=== PATIENT | male | born 1945 | race Caucasian/White ===

== ENCOUNTER 2019-01-21 20:00 | Inpatient (IN) | payer MEDICARE ==
[~2019-01-21] VITALS: Ht 170.2 cm; Wt 76.8 kg
--- NOTE | 2019-01-21 20:39 | PHYS DOC ---
Past Medical History Past Medical History: A-Fib, High Cholesterol, Hypertension (pulmonary) Past Medical History limited due to patient's current condition, cardiopulmonary arrest Past Surgical History: Appendectomy, Coronary Bypass Surgery, Other (rotator cuff repair) Past Surgical History limited due to patient's current condition, cardiopulmonary arrest Smoking: Cigarettes, Greater than 1 pack/day, Quit Greater Than 1 Year (quit 2- 3 years ago) Alcohol Use: Occasionally (beer) Drug Use: None Social History limited due to patient's current condition, cardiopulmonary arrest Adult General Chief Complaint Chief Complaint: CPR/FULL ARREST HPI HPI 73-year-old male presents via EMS as postcardiac arrest with return of spontaneous rhythm. Patient had suddenly collapsed at home which was witnessed by his spouse. EMS was called and noted patient in Vtach. ACLS protocol utilized and patient defibrillated x 2 with 3 dose of epi prior to ROSC at 1940. ETT placed by EMS with 7.5 cuffed at 24cm at teeth. Patient with history of p acer. Post code rhythm per EMS was paced. EMS reports additional episode of pulseless Vtach which converted after additional defibrillation with ROSC at 1944. EMS transported to ED. Per family, patient had previously signed a "DNR form". Family reports that he "doesn't want to be in a vegetative state, however, he would want everything done initially". History of present illness limited due patient's current condition post cardiopulmonary arrest. Review of Systems Review of Systems Review of systems limited due to post cardiopulmonary arrest Family History Family History Mother - stroke, [place] Current Medications Current Medications Allergies Allergies Penicillin Amiodarone Physical Exam Physical Exam Constitutional: Nonresponsive elderly patient HENT: Normocephalic, atraumatic, oropharynx moist, ETT in place (per EMS) 7.5 cuffed tube 24 cm at teeth Eyes: 4mm pupils sluggish response, conjunctiva normal, no discharge Neck: Normal range of motion, supple Cardiovascular: Heart rate tachycardic, regular rhythm, radial pulse weak and thready Lungs & Thorax: Bilateral breath sounds coarse and artificial with bag valve mask, midline vertical chest wall healed incision site Abdomen: Soft, no tenderness Skin: Warm, dry, cyanotic to periphery Back: No tenderness, no CVA tenderness Extremities: No deformity, no edema Neurologic: GCS 3, unable to fully evaluate Current Patient Data Vital Signs Vital Signs Date Time Temp Pulse Resp B/P (MAP) Pulse Ox O2 Delivery O2 Flow Rate FiO2 01/21/19 20:55 93 91/51 (64) 93 Ventilator 01/21/19 20:35 97.6 97.6 01/21/19 20:00 16 15.0 Lab Values Laboratory Tests Test 01/21/19 20:24 01/21/19 20:40 01/21/19 20:42 01/21/19 20:47 Glucose (Fingerstick) 112 mg/dL (70-99) H O2 Saturation 90 % (92-99) L Arterial Blood pH 7.00 (7.35-7.45) *L Arterial Blood pCO2 at Patient Temp 52 mmHg (35-46) H Arterial Blood pO2 at Patient Temp 92 mmHg (65-108) Arterial Blood HCO3 13 mmol/L (21-28) L Arterial Blood Base Excess -19 mmol/L (-3-3) L Oxyhemoglobin 89.3 % Methemoglobin 0.6 % (0.0-1.9) Carbon Monoxide, Quantitative 0.3 % (0.0-1.9) FiO2 100 POC Troponin I 0.43 ng/ml (<0.08) POC Hemoglobin 13.3 g/dL (14-18) L POC Hematocrit 39 % (37-52) POC Sodium 122 mmol/L (135-145) L POC Potassium 4.0 mmol/L (3.5-5.0) POC Chloride 94 mmol/L (98-110) L POC Total CO2 17 mmol/L (23-32) L Anion Gap 16 mmol/L (6-14) H POC Blood Urea Nitrogen 9 mg/dL (8-26) POC Creatinine 1.2 mg/dL (0.5-1.4) Glucose Level 126 mg/dL (70-99) H POC Ionized Calcium (Amada) 0.93 mmol/L (1.13-1.32) L Laboratory Tests 01/21/19 20:47 EKG EKG @ 2001 Paced rhythm at 81bpm @2008 Paced rhythm at 103bpm Radiology/Procedures Radiology/Procedures PROCEDURE: CT HEAD WO CONTRAST CT head without contrast dated 01/21/2019. No comparison available. CLINICAL INDICATION: Post CODE BLUE. TECHNIQUE: Contiguous axial imaging the head was performed from skull base to vertex. No contrast administered. One or more of the following individualized dose reduction techniques were utilized for this examination: 1. Automated exposure control 2. Adjustment of the mA and/or kV according to patient size 3. Use of iterative reconstruction technique FINDINGS: Ventricles and sulci are mildly prominent for age. No midline shift or mass effect. Mild patchy low density in the deep/subcortical periventricular white matter. No hemorrhage or extra-axial collection. 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 Posterior fossa and brainstem otherwise unremarkable. Mild mucosal thickening of the bilateral ethmoid and maxillary sinuses. Visualized paranasal sinuses and mastoid air cells are otherwise clear. No apparent calvarial abnormality. IMPRESSION: 1. No evidence of acute intracranial hemorrhage or mass. 2. Mild chronic small vessel ischemic changes and atrophy. 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 3. Mild sinus disease. Electronically signed by: Agustin Wilkes MD (01/21/2019 11:27 PM) [facility] PROCEDURE: PORTABLE CHEST 1V Exam: Chest one view INDICATION: Endotracheal tube placement TECHNIQUE: Frontal view of the chest Comparisons: None FINDINGS: Endotracheal tube with tip approximately 5 cm above the dot. Enteric tube traverses below the diaphragm distal extent visualized within stomach. Pacer with leads terminating the right atrium and ventricle. Sternotomy wires and surgical clips overlying the left heart border again noted. Heart is enlarged. Pulmonary vessels are obscured. Patchy airspace disease in the lungs bilaterally. No pleural effusion. IMPRESSION: 1. Lines and tubes described above. 2. Patchy bilateral airspace disease and cardiomegaly. Findings could be related to pulmonary edema, multifocal infection, or ARDS Electronically signed by: Judah Kinney MD (01/21/2019 8:58 PM) [facility] 2nd CXR AP (preliminary interpretation by ED physician): RIJ in good position. Continued bilateral pulmonary patch airspace disease noted more likely pulmonary contusion due to CPR. Course & Med Decision Making Course & Med Decision Making Pertinent Labs and Imaging studies reviewed. (See chart for details) Patient presents as cardiopulmonary arrest with ROSC after defibrillation x 3 and epi x 3 by EMS. ETT placed by EMS. Patient with paced rhythm. Patient did lose pulse x 2 during ED stay which was successfully resuscitated per ACLS protocol. CXR confirmed good ETT placement. Significant patchy lung disease noted which is likely pulmonary contusion from mechanical compressions. P atient did have some bright red blood noted in ETT. Patient requiring pressure support with dopamine. Lab obtained and posted to chart. WBC elevation with bandemia noted. Lactic acid elevated. These findings more likely due to effects of resuscitative efforts. IVF hydration given. Troponin elevated. Central line placed to RIJ with good position on additional CXR. Discussed case with Dr. Stern (cardiology) who is in agreement with consultation and CODE ICE. 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 Patient requiring ICU admission for further evaluation and treatment. Discussed with Dr. Lee (hospitalist) who is in agreement with admission. Discussed findings and plan with family, who acknowledges understanding and agreement. Dragon Disclaimer Dragon Disclaimer This electronic medical record was generated, in whole or in part, using a voice recognition dictation system. Central Line Central Line : Central Line Lumen: triple Central Line Procedure: sterile drapes applied, sterile dressing applied Central Line Postion: internal jugular (R) Anesthesia: Lidocaine cc's of anesthesia: 3 Complications: none Central Line Post Position: sutured, good blood return, position confirmed w/ CXR Progress Written consent obtained. Time out performed. Hand hygiene utilized. Sterile attire donned. Wound cleaned with ChloraPrep. Sterile drapes applied. Anesthesia obtained via a 25-gauge hypodermic needle with (3) mL's of lidocaine. Bedside ultrasound utilized to view oval shaped compressible hypoechoic nonpulsatile vessel (right interval jugular). Needle introduced to RIJ under ultrasound guidance until good blood flow. Guidewire placed. Skin incised near wire and dilator use. Triple lumen cath placed over guidewire and guidewire removed (Seldinger technique). Cath secured with sutures in the normal fashion and sterile Op-site applied. Patient tolerated procedure well and without difficulty. Departure Departure Impression: Primary Impression: Cardiopulmonary arrest with successful resuscitation Disposition: ADMITTED INPATIENT Admitting Physician: LAW (Rosa) Condition: CRITICAL Referrals: AGUSTIN GOFF MD (PCP) Critical Care Time Critical care time was 60 minutes which includes time at bedside, spent in discussion of patient's care with specialists and/or family members, with interpretation of laboratory and/or radiological studies and is exclusive of procedures. AGUSTIN MONTANA DO Jan 21, 2019 20:39
[2019-01-21 20:50] LABS: BASE EXCESS COOX -19 mmol/L (-3-3); HCO3 COOX 13 mmol/L (21-28); METHEMOGLOBIN 0.6 % (0.0-1.9); OXYHEMOGLOBIN 89.3 %; PCO2 COOX 52 mmHg (35-46); PO2 COOX 92 mmHg (65-108); SAT O2 COOX 90 % (92-99)
[2019-01-21 20:52] LABS: CREATININE ISTAT 1.2 mg/dL (0.5-1.4); HEMOGLOBIN ISTAT 13.3 g/dL (14-18); ION CA ISTAT 0.93 mmol/L (1.13-1.32)
[2019-01-21] MEDS ORDERED: IV NORMAL SALINE 1000ML BAG 1,000 ML IV ONE (21:00)
[2019-01-21] MEDS ORDERED: fentaNYL PF VIAL 100 MCG/2 ML VIAL IV PRN ×2 (21:00)
[2019-01-21] MEDS ORDERED: ONDANSETRON PF 4 MG/2 ML VIAL. IV PRN ×2 (21:00→22:45)
--- NOTE | 2019-01-21 21:01 | RAD ---
Exam: Chest one view INDICATION: Endotracheal tube placement TECHNIQUE: Frontal view of the chest Comparisons: None FINDINGS: Endotracheal tube with tip approximately 5 cm above the dot. Enteric tube traverses below the diaphragm distal extent visualized within stomach. Pacer with leads terminating the right atrium and ventricle. Sternotomy wires and surgical clips overlying the left heart border again noted. Heart is enlarged. Pulmonary vessels are obscured. Patchy airspace disease in the lungs bilaterally. No pleural effusion. IMPRESSION: 1. Lines and tubes described above. 2. Patchy bilateral airspace disease and cardiomegaly. Findings could be related to pulmonary edema, multifocal infection, or ARDS Electronically signed by: Judah Kinney MD (01/21/2019 8:58 PM) [facility]
--- NOTE | 2019-01-21 21:11 | PDOC1 ---
History and Physical Date of Admission Date of Admission DATE: 01/21/19 TIME: 21:10 Identification/Chief Complaint Chief Complaint cardiac arrest in field, According to steph, pt had no complaints today, had been outside trimming roses in the warm weather, fell to floor IN HOME SUDDEN RESP ARREST , came to AID, CALLED 911, FOUND TO BE IN V--FIB BY MEDICS Pt is followed by Dr Jane [facility] Product Coordinator and PCP DR GOFF [facility], WAS hospitalized for fall in 09/2018 at [facility], Records requested stat from unit clerk on my visit, D/W DR MONTANA IN ER , Code ice protocol planned DR Stern aware of admit BLOOD CULTURED CT HEAD PENDING Past Medical History Past Medical History Past Medical History Past Medical History Past Medical History: A-Fib, High Cholesterol, Hypertension (pulmonary) Past Medical History limited due to patient's current condition, cardiopulmonary arrest Past Surgical History: Appendectomy, Coronary Bypass Surgery, Other (rotator cuff repair) Past Surgical History limited due to patient's current condition, cardiopulmonary arrest Smoking: Cigarettes, Greater than 1 pack/day, Quit Greater Than 1 Year (quit 2- 3 years ago) Alcohol Use: Occasionally (beer) Drug Use: None Social History limited due to patient's current condition, cardiopulmonary 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 beer Cardiovascular: HTN, Hyperlipidemia Pulmonary: COPD Psych: No pertinent hx Musculoskeletal: Osteoarthritis Infectious disease: No pertinent hx Endocrine: No pertinent hx Family History Family History Family History Family History Mother - stroke, [place] Family History: Heart Disease, Hypertension Social History Smoke: Quit ALCOHOL: heavy Drugs: None Current Medications Current Medications Current Medications Sodium Chloride 1,000 ml @ 1,000 mls/hr 1X ONCE IV ; Start 01/21/19 at 20:30; Stop 01/21/19 at 21:29; Status UNV Dopamine HCl/ Dextrose 250 ml @ 5.762 mls/ hr 1X ONCE IV ; Start 01/21/19 at 20:45; Stop 01/23/19 at 16:08; Status UNV Epinephrine HCl (EPINEPHrine SYRINGE) 1 mg 1X ONCE IV ; Start 01/21/19 at 21:15; Stop 01/21/19 at 21:16; Status UNV Epinephrine HCl (EPINEPHrine SYRINGE) 1 mg 1X ONCE IV ; Start 01/21/19 at 21:15; Stop 01/21/19 at 21:16; Status UNV Epinephrine HCl (EPINEPHrine SYRINGE) 1 mg 1X ONCE IV ; Start 01/21/19 at 21:15; Stop 01/21/19 at 21:16; Status UNV Ondansetron HCl (Zofran) 4 mg PRN Q8HRS PRN IV NAUSEA/VOMITING; Start 01/21/19 at 21:00; Stop 01/22/19 at 20:59; Status UNV Fentanyl Citrate (Fentanyl 2ml Vial) 25 mcg PRN Q1HR PRN IV SEE COMMENTS; Start 01/21/19 at 21:00; Status UNV Fentanyl Citrate (Fentanyl 2ml Vial) 50 mcg PRN Q1HR PRN IV SEE COMMENTS; Start 01/21/19 at 21:00; Status UNV Chlorhexidine Gluconate (Peridex) 15 ml BID MM ; Start 01/21/19 at 21:00; Status UNV Famotidine (Pepcid Vial) 20 mg BID IVP ; Start 01/21/19 at 21:00; Status UNV Allergies Allergies: Coded Allergies: Penicillins (Verified Allergy, Unknown, 01/21/19) amiodarone (Verified Allergy, Unknown, 01/21/19) ROS Review of System unable to obtain, intubated, faily reports he awake with no problems or complaints General: No: Chills, Night Sweats, Fatigue, Malaise, Appetite, Other Hematological and Lymphatic: No: Bleeding Problems, Blood Clots, Blood Transfusions, Brusing, Night Sweats, Pallor, Swollen Lymph Nodes, Other Cardiovascular: No Chest Pain, No Palpitations, No Orthopnea, No Paroxysmal Noc. Dyspnea, No Edema, No Lt Headedness, No Other Neurological: No Behavorial Changes, No Bowel/Bladder ControlChng, No Confusion, No Dizziness, No Gait Disturbance, No Headaches, No Impaired Coord/balance, No Memory Loss, No Numbness/Tingling, No Seizures, No Speech Problems, No Tremors, No Visual Changes, No Weakness, No Other Physical Exam Physical Exam INTUBATED ON VENT IN ER General: moderate distress HEENT: Atraumatic Lungs: Other (coarse breath sounds all lung camarena) Breasts: Normal Abdomen: Normal bowel sounds, Soft, No tenderness Rectal Exam: not examined PELVIC: Examination not indicated Extremities: No cyanosis Vitals Vitals Vital Signs Date Time Temp Pulse Resp B/P (MAP) Pulse Ox O2 Delivery O2 Flow Rate FiO2 01/21/19 19:58 95 Ventilator Labs Labs Laboratory Tests Test 01/21/19 20:24 01/21/19 20:40 01/21/19 20:42 01/21/19 20:47 Glucose (Fingerstick) 112 mg/dL (70-99) O2 Saturation 90 % (92-99) Arterial Blood pH 7.00 (7.35-7.45) Arterial Blood pCO2 at Patient Temp 52 mmHg (35-46) Arterial Blood pO2 at Patient Temp 92 mmHg (65-108) Arterial Blood HCO3 13 mmol/L (21-28) Arterial Blood Base Excess -19 mmol/L (-3-3) Oxyhemoglobin 89.3 % Methemoglobin 0.6 % (0.0-1.9) Carbon Monoxide, Quantitative 0.3 % (0.0-1.9) FiO2 100 Bedside Troponin I 0.43 ng/ml (<0.08) Bedside Hemoglobin 13.3 g/dL (14-18) Bedside Hematocrit 39 % (37-52) Bedside Sodium 122 mmol/L (135-145) Bedside Potassium 4.0 mmol/L (3.5-5.0) Bedside Chloride 94 mmol/L (98-110) Bedside Total CO2 17 mmol/L (23-32) Anion Gap 16 mmol/L (6-14) Bedside Blood Urea Nitrogen 9 mg/dL (8-26) Bedside Creatinine 1.2 mg/dL (0.5-1.4) Glucose Level 126 mg/dL (70-99) Bedside Ionized Calcium (Amada) 0.93 mmol/L (1.13-1.32) Laboratory Tests Test 01/21/19 20:24 01/21/19 20:40 01/21/19 20:42 01/21/19 20:47 Glucose (Fingerstick) 112 mg/dL (70-99) O2 Saturation 90 % (92-99) Arterial Blood pH 7.00 (7.35-7.45) Arterial Blood pCO2 at Patient Temp 52 mmHg (35-46) Arterial Blood pO2 at Patient Temp 92 mmHg (65-108) Arterial Blood HCO3 13 mmol/L (21-28) Arterial Blood Base Excess -19 mmol/L (-3-3) Oxyhemoglobin 89.3 % Methemoglobin 0.6 % (0.0-1.9) Carbon Monoxide, Quantitative 0.3 % (0.0-1.9) FiO2 100 Bedside Troponin I 0.43 ng/ml (<0.08) Bedside Hemoglobin 13.3 g/dL (14-18) Bedside Hematocrit 39 % (37-52) Bedside Sodium 122 mmol/L (135-145) Bedside Potassium 4.0 mmol/L (3.5-5.0) Bedside Chloride 94 mmol/L (98-110) Bedside Total CO2 17 mmol/L (23-32) Anion Gap 16 mmol/L (6-14) Bedside Blood Urea Nitrogen 9 mg/dL (8-26) Bedside Creatinine 1.2 mg/dL (0.5-1.4) Glucose Level 126 mg/dL (70-99) Bedside Ionized Calcium (Amada) 0.93 mmol/L (1.13-1.32) Images Images Exam: Chest one view INDICATION: Endotracheal tube placement TECHNIQUE: Frontal view of the chest Comparisons: None FINDINGS: Endotracheal tube with tip approximately 5 cm above the dot. Enteric tube traverses below the diaphragm distal extent visualized within stomach. Pacer with leads terminating the right atrium and ventricle. Sternotomy wires and surgical clips overlying the left heart border again noted. Heart is enlarged. Pulmonary vessels are obscured. Patchy airspace disease in the lungs bilaterally. No pleural effusion. IMPRESSION: 1. Lines and tubes described above. 2. Patchy bilateral airspace disease and cardiomegaly. Findings could be related to pulmonary edema, multifocal infection, or ARDS Electronically signed by: Judah Kinney MD (01/21/2019 8:58 PM) [facility] Exam: Chest one view INDICATION: Endotracheal tube placement TECHNIQUE: Frontal view of the chest Comparisons: None FINDINGS: Endotracheal tube with tip approximately 5 cm above the dot. Enteric tube traverses below the diaphragm distal extent visualized within stomach. Pacer with leads terminating the right atrium and ventricle. Sternotomy wires and surgical clips overlying the left heart border again noted. Heart is enlarged. Pulmonary vessels are obscured. Patchy airspace disease in the lungs bilaterally. No pleural effusion. IMPRESSION: 1. Lines and tubes described above. 2. Patchy bilateral airspace disease and cardiomegaly. Findings could be related to pulmonary edema, multifocal infection, or ARDS Electronically signed by: Judah Kinney MD (01/21/2019 8:58 PM) [facility] VTE Prophylaxis Ordered VTE Prophylaxis Devices: Yes VTE Pharmacological Prophylaxi: Yes Assessment/Plan Assessment/Plan IMPRESSION: 1. v-fib arrest in field. 2. Patchy bilateral airspace disease and cardiomegaly. Findings could be related to pulmonary edema, multifocal infection, or ARDS on pcxr 3. COPD 4. RESP ACIDOSIS/ metabolic acidosis 5, RESP FAILURE, POSSIBLE ASPIRATION// hypercapnic 6. Cardiogenic shock 7. elevated troponin i 8. severe sepsis 9. hyponatremia 10. heat exposure prior to CARDIAC arrest 11. moderate alcohol use 12. 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
[2019-01-21] MEDS ORDERED: EPINEPHrine SYRINGE 1 MG/10 ML SYRINGE IV ONE ×3 (21:15)
[2019-01-21] MEDS ORDERED: FAMOTIDINE 20 MG/2 ML VIAL IVP SCH (21:15)
[2019-01-21] MEDS ORDERED: SODIUM BICARB ADULT 8.4% 50 MEQ/50 ML DISP.SYRIN. IV ONE (21:15)
[2019-01-21] MEDS ORDERED: fentaNYL PF VIAL 100 MCG/2 ML VIAL ONE (21:29)
[2019-01-21] MEDS ORDERED: fentaNYL PF VIAL 100 MCG/2 ML VIAL IV ONE (21:30)
[2019-01-21] MEDS ORDERED: PROPOFOL 100 ML IV PRN (21:30)
[2019-01-21] MEDS ORDERED: MIDAZOLAM HCL/PF 5 MG/5 ML VIAL. IV ONE (21:30)
[2019-01-21 21:44] LABS: BASE EXCESS ABG -14 mmol/L (-3-3); HCO3 ABG 17 mmol/L (21-28); PCO2 ABG 56 mmHg (35-46); PO2 ABG 72 mmHg (65-108); SAT O2 ABG 85 % (92-99)
[2019-01-21] MEDS ORDERED: 0.9 % SODIUM CHLORIDE 10 ML DISP.SYRIN. IV PRN (22:45)
[2019-01-21] MEDS ORDERED: VANCOMYCIN PER PHARMACY MC PRN (22:45)
[2019-01-21] MEDS ORDERED: VANCOMYCIN 2 GM in IV NORMAL SALINE 500ML BAG 500 ML IV ONE (23:00)
[2019-01-21 23:15] VITALS: BP 80/61
--- NOTE | 2019-01-21 23:15 | NUR ---
pt admitted to room 106 from ED at this time. hypothermia started; cold blankets applied under and on top of patient, ice packs applied to bilateral groin and bilateral armpits, one liter of cold saline infused through peripheral IV in right AC, cold saline flushes utilized to both peripherals and right central IJ, karimi flushed with cold saline as well as cold water flushed through OG. rectal probe placed without difficulty. towel placed around head, socks applied and temperature in room lowered to lowest possible setting. bloody secretions noted from ET tube, pt bucking vent and constantly coughing. pt tolerated a dose of IV Fentanyl x1 so Fentanyl SHAPER SETTER initiated. unable to tolerate Propofol d/t hypotension and on Dopamine, so Versed was initiated instead with desirable results. and son at bedside, questions answered. Family was educated on plan of care, unit routines, meds, vent, labs and visiting hours; both voice understanding. will pass on in report, will continue to closely monitor.
--- NOTE | 2019-01-21 23:30 | RAD ---
CT head without contrast dated 01/21/2019. No comparison available. CLINICAL INDICATION: Post CODE BLUE. TECHNIQUE: Contiguous axial imaging the head was performed from skull base to vertex. No contrast administered. One or more of the following individualized dose reduction techniques were utilized for this examination: 1. Automated exposure control 2. Adjustment of the mA and/or kV according to patient size 3. Use of iterative reconstruction technique FINDINGS: Ventricles and sulci are mildly prominent for age. No midline shift or mass effect. Mild patchy low density in the deep/subcortical periventricular white matter. No hemorrhage or extra-axial collection. 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 Posterior fossa and brainstem otherwise unremarkable. Mild mucosal thickening of the bilateral ethmoid and maxillary sinuses. Visualized paranasal sinuses and mastoid air cells are otherwise clear. No apparent calvarial abnormality. IMPRESSION: 1. No evidence of acute intracranial hemorrhage or mass. 2. Mild chronic small vessel ischemic changes and atrophy. 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 3. Mild sinus disease. Electronically signed by: Agustin Wilkes MD (01/21/2019 11:27 PM) [facility]
[2019-01-21 23:33] LABS: BASO # 0.1 x10^3/uL (0.0-0.2); BASO % 0 % (0-3); EOS # 0.1 x10^3/uL (0.0-0.7); EOS % 0 % (0-3); HEMATOCRIT 36.4 % (39.0-53.0); HEMOGLOBIN 12.1 g/dL (13.0-17.5); LYMPH # 0.9 x10^3/uL (1.0-4.8); LYMPH % 4 % (24-48); MEAN CORPUSCULAR HEMOGLOBIN 30 pg (25-35); MEAN CORPUSCULAR HGB CONC 33 g/dL (31-37); MEAN CORPUSCULAR VOLUME 90 fL (79-100); MONO # 1.4 x10^3/uL (0.0-1.1); MONO % 7 % (0-9); NEUT # 18.5 x10^3/uL (1.8-7.7); NEUT % 88 % (31-73); PLATELET COUNT 157 x10^3/uL (140-400); RED BLOOD COUNT 4.06 x10^6/uL (4.30-5.70); RED CELL DISTRIBUTION WIDTH 17.5 % (11.5-14.5)
[2019-01-21 23:36] LABS: FIO2 ABG 100
[2019-01-21 23:42] LABS: PROTHROMBIN TIME PATIENT 35.8 SEC (11.7-14.0)
[2019-01-21] MEDS: CHLORHEXIDINE 0.12% 15 ML MOUTHWASH. MM SCH (23:45)
[2019-01-21 23:53] LABS: % BANDS 22 % (0-9); % LYMPHS 7 % (24-48); % METAS 2 % (0-0); % MONOS 4 % (0-10); % MYELOS 1 % (0-0); % PROS 1 % (0-0); % SEGS 63 % (35-66); ANISOCYTOSIS SLIGHT; PLT ESTIMATE ADEQUATE (ADEQUATE); TOXIC GRANULATION SLIGHT
[2019-01-21 23:54] LABS: CALCIUM 7.2 mg/dL (8.5-10.1); CREATININE 1.2 mg/dL (0.7-1.3); GFR 59.2; POTASSIUM 5.6 mmol/L (3.5-5.1)
[2019-01-22] VITALS (35 sets, daily range): BP systolic 68–194; BP diastolic 43–93
[2019-01-22 00:07] LABS: ALBUMIN 3.1 g/dL (3.4-5.0); MAGNESIUM 1.5 mg/dL (1.8-2.4); PHOSPHORUS 6.8 mg/dL (2.6-4.7); TOTAL BILIRUBIN 0.9 mg/dL (0.2-1.0); TOTAL PROTEIN 6.1 g/dL (6.4-8.2)
[2019-01-22] MEDS ORDERED: IV NORMAL SALINE 1000ML BAG 1,000 ML IV ONE ×2 (00:15)
[2019-01-22] MEDS ORDERED: VECURONIUM BOLUS 10 MG VIAL. IV PRN (00:30)
[2019-01-22] MEDS ORDERED: POLYVINYL ALCOHOL 1.4% OPHTH SOLUTION 15ML BOTTLE. OU PRN (00:30)
[2019-01-22] MEDS: MIDAZOLAM 100mg/100ml NS BAG 100 ML IV PRN ×2 (00:55→19:24)
[2019-01-22] MEDS: ACETAMINOPHEN 650 MG/20.3 ML SOLUTION. NG SCH ×6 (00:58→22:46)
[2019-01-22] MEDS ORDERED: MAGNESIUM SULFATE 1GM 100 ML IV ONE (01:00)
[2019-01-22] MEDS ORDERED: ASPIRIN RECTAL 300 MG SUPP. PR ONE (01:00)
[2019-01-22 01:10] LABS: BASE EXCESS COOX -12 mmol/L (-3-3); CORRECTED PCO2 COOX 33 mmHg; CORRECTED PH COOX 7.26; CORRECTED PO2 COOX 91 mmHg; HCO3 COOX 15 mmol/L (21-28); METHEMOGLOBIN 0.3 % (0.0-1.9); PCO2 COOX 37 mmHg (35-46); PO2 COOX 106 mmHg (65-108); SAT O2 COOX 96 % (92-99)
[2019-01-22] MEDS: busPIRone 10 MG TABLET. NG SCH ×3 (01:12→17:00)
--- NOTE | 2019-01-22 01:22 | NUR ---
Pharmacy Vancomycin Dosing Note S:Consulted to monitor and dose vancomycin started 01/22/19. O:DILLAN BANDA is a 73 year old M with Sepsis . Height: 6 feet, 0 inches Weight: 76.712342 kg [place] Body Weight: 77.60 Adjusted Body Weight: 77.28 Dosing Weight: Actual Other Antibiotics: CLINDAMYCIN 600MG IV Q8H (01/22) LEVOFLOXACIN 500MG IV X1 (01/22) LABS: Last BUN: 12 Last Creatinine: 1.2 Creatinine Clearance: 59 mL/min Last WBC: 21 Last Procalcitonin: Tmax (past 24 hours): Microbiology: I/O: Drug Levels: Last level: on at Last dose given at Vancomycin Dosing: Loading Dose: 2000 mg x1 01/22/19 0050 Dosing Weight: Actual Target Trough: 15-20 A: Based on: Actual Wt and CrCl P: 1. 01/22/19 1300 Vancomycin 1000 mg IV q12h 2. Follow up Trough level on 01/23/19 at 1230 3. Pharmacy will continue to monitor, follow and adjust therapy as needed. PROSPER ELIAS RPH, 01/22/19 0122 Signed: 01/22/19 at 0124 by PRSOPER ELIAS RPH PHA
[2019-01-22] MEDS ORDERED: MAGN400T22 PO (02:59)
[2019-01-22] MEDS ORDERED: NITR0.4T22 SL (02:59)
[2019-01-22] MEDS ORDERED: WARF-31 PO (02:59)
[2019-01-22] MEDS ORDERED: SPIR25TA5 PO (02:59)
[2019-01-22] MEDS ORDERED: CETI10TA22 PO (02:59)
[2019-01-22] MEDS ORDERED: PANT20TA2 PO (02:59)
[2019-01-22] MEDS ORDERED: LIPITOR80 MG PO (02:59)
[2019-01-22] MEDS ORDERED: ALBU2.5V14 NEB (02:59)
[2019-01-22] MEDS ORDERED: ASPI-630 PO (02:59)
[2019-01-22] MEDS ORDERED: FLUT1DIS IH (02:59)
[2019-01-22] MEDS ORDERED: OMEG1CAP6 PO (02:59)
[2019-01-22] MEDS ORDERED: CLOP75TA PO (02:59)
[2019-01-22] MEDS ORDERED: MULT1TAB52 PO (02:59)
[2019-01-22] MEDS ORDERED: METO100T7 PO (02:59)
[2019-01-22] MEDS ORDERED: WARF2.5T71 PO (02:59)
[2019-01-22] MEDS: POLYVINYL ALCOHOL 1.4% OPHTH SOLUTION 15ML BOTTLE. OU SCH ×3 (05:32→18:50)
[2019-01-22] MEDS: HEPARIN for SUB-Q USE 5,000 UNIT/ML VIAL. SQ SCH ×3 (05:52→22:00)
[2019-01-22] MEDS ORDERED: CLINDAMYCIN 600MG PREMIX 50 ML IV SCH (06:00)
[2019-01-22 06:18] LABS: ALBUMIN 2.9 g/dL (3.4-5.0); CALCIUM 7.1 mg/dL (8.5-10.1); CHOLESTEROL/HDL RATIO 1.2; CREATININE 1.3 mg/dL (0.7-1.3); TOTAL BILIRUBIN 1.1 mg/dL (0.2-1.0); TOTAL PROTEIN 5.9 g/dL (6.4-8.2)
--- NOTE | 2019-01-22 07:44 | EKG ---
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
--- NOTE | 2019-01-22 07:49 | EKG ---
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
--- NOTE | 2019-01-22 08:22 | PDOC ---
Infectious Disease Note Vital Sign Vital Signs Vital Signs Date Time Temp Pulse Resp B/P (MAP) Pulse Ox O2 Delivery O2 Flow Rate FiO2 01/22/19 07:30 100 Ventilator 01/22/19 06:00 92.0 01/22/19 06:00 59 24 01/22/19 00:16 15.0 Labs Lab Laboratory Tests Test 01/21/19 20:24 01/21/19 20:40 01/21/19 20:42 01/21/19 20:47 Glucose (Fingerstick) 112 mg/dL (70-99) O2 Saturation 90 % (92-99) Arterial Blood pH 7.00 (7.35-7.45) Arterial Blood pCO2 at Patient Temp 52 mmHg (35-46) Arterial Blood pO2 at Patient Temp 92 mmHg (65-108) Arterial Blood HCO3 13 mmol/L (21-28) Arterial Blood Base Excess -19 mmol/L (-3-3) Oxyhemoglobin 89.3 % Methemoglobin 0.6 % (0.0-1.9) Carbon Monoxide, Quantitative 0.3 % (0.0-1.9) FiO2 100 Bedside Troponin I 0.43 ng/ml (<0.08) Bedside Hemoglobin 13.3 g/dL (14-18) Bedside Hematocrit 39 % (37-52) Bedside Sodium 122 mmol/L (135-145) Bedside Potassium 4.0 mmol/L (3.5-5.0) Bedside Chloride 94 mmol/L (98-110) Bedside Total CO2 17 mmol/L (23-32) Anion Gap 16 mmol/L (6-14) Bedside Blood Urea Nitrogen 9 mg/dL (8-26) Bedside Creatinine 1.2 mg/dL (0.5-1.4) Glucose Level 126 mg/dL (70-99) Bedside Ionized Calcium (Amada) 0.93 mmol/L (1.13-1.32) Test 01/21/19 21:46 01/21/19 23:03 01/21/19 23:20 01/21/19 23:31 O2 Saturation 85 % (92-99) 96 % (92-99) Arterial Blood pH 7.09 (7.35-7.45) 7.22 (7.35-7.45) Arterial Blood pCO2 at Patient Temp 56 mmHg (35-46) 37 mmHg (35-46) Arterial Blood pO2 at Patient Temp 72 mmHg (65-108) 106 mmHg (65-108) Arterial Blood HCO3 17 mmol/L (21-28) 15 mmol/L (21-28) Arterial Blood Base Excess -14 mmol/L (-3-3) -12 mmol/L (-3-3) FiO2 100 100 Arterial Blood pH (Temp corrected) 7.26 Arterial Blood pCO2 (Temp correct) 33 mmHg Arterial Blood pO2 (Temp corrected) 91 mmHg Oxyhemoglobin 95.0 % Methemoglobin 0.3 % (0.0-1.9) Carbon Monoxide, Quantitative 0.5 % (0.0-1.9) White Blood Count 21.0 x10^3/uL (4.0-11.0) Red Blood Count 4.06 x10^6/uL (4.30-5.70) Hemoglobin 12.1 g/dL (13.0-17.5) Hematocrit 36.4 % (39.0-53.0) Mean Corpuscular Volume 90 fL (79-100) Mean Corpuscular Hemoglobin 30 pg (25-35) Mean Corpuscular Hemoglobin Concent 33 g/dL (31-37) Red Cell Distribution Width 17.5 % (11.5-14.5) Platelet Count 157 x10^3/uL (140-400) Neutrophils (%) (Auto) 88 % (31-73) Lymphocytes (%) (Auto) 4 % (24-48) Monocytes (%) (Auto) 7 % (0-9) Eosinophils (%) (Auto) 0 % (0-3) Basophils (%) (Auto) 0 % (0-3) Neutrophils # (Auto) 18.5 x10^3/uL (1.8-7.7) Lymphocytes # (Auto) 0.9 x10^3/uL (1.0-4.8) Monocytes # (Auto) 1.4 x10^3/uL (0.0-1.1) Eosinophils # (Auto) 0.1 x10^3/uL (0.0-0.7) Basophils # (Auto) 0.1 x10^3/uL (0.0-0.2) Segmented Neutrophils % 63 % (35-66) Band Neutrophils % 22 % (0-9) Lymphocytes % 7 % (24-48) Monocytes % 4 % (0-10) Metamyelocytes % 2 % (0-0) Myelocytes % 1 % (0-0) Promyelocytes % 1 % (0-0) Toxic Granulation Slight Platelet Estimate Adequate (ADEQUATE) Anisocytosis Slight Prothrombin Time 35.8 SEC (11.7-14.0) Prothromb Time International Ratio 3.6 (0.8-1.1) Sodium Level 126 mmol/L (136-145) Potassium Level 5.6 mmol/L (3.5-5.1) Chloride Level 92 mmol/L (98-107) Carbon Dioxide Level 20 mmol/L (21-32) Anion Gap 14 (6-14) Blood Urea Nitrogen 12 mg/dL (8-26) Creatinine 1.2 mg/dL (0.7-1.3) Estimated GFR (Cockcroft-Gault) 59.2 BUN/Creatinine Ratio 10 (6-20) Glucose Level 134 mg/dL (70-99) Lactic Acid Level 3.7 mmol/L (0.4-2.0) Calcium Level 7.2 mg/dL (8.5-10.1) Phosphorus Level 6.8 mg/dL (2.6-4.7) Magnesium Level 1.5 mg/dL (1.8-2.4) Total Bilirubin 0.9 mg/dL (0.2-1.0) Aspartate Amino Transf (AST/SGOT) 225 U/L (15-37) Alanine Aminotransferase (ALT/SGPT) 125 U/L (16-63) Alkaline Phosphatase 151 U/L (46-116) Creatine Kinase 733 U/L (39-308) Creatine Kinase MB (Mass) 28.2 ng/mL (0.0-3.6) Creatine Kinase MB Relative Index 3.8 % (0-4) Troponin I Quantitative 4.112 ng/mL (0.000-0.055) C-Reactive Protein, Quantitative 5.8 mg/L (0-3.3) HS-Hrd-Q-Type Natriuretic Peptide 3826 pg/mL (0-124) Total Protein 6.1 g/dL (6.4-8.2) Albumin 3.1 g/dL (3.4-5.0) Albumin/Globulin Ratio 1.0 (1.0-1.7) Lipase 86 U/L (73-393) Procalcitonin 0.16 ng/mL (0.00-0.10) Thyroid Stimulating Hormone (TSH) 1.556 uIU/mL (0.358-3.74) Glucose (Fingerstick) 114 mg/dL (70-99) Test 01/22/19 05:38 01/22/19 05:40 Glucose (Fingerstick) 149 mg/dL (70-99) Sodium Level 125 mmol/L (136-145) Potassium Level 4.0 mmol/L (3.5-5.1) Chloride Level 94 mmol/L (98-107) Carbon Dioxide Level 18 mmol/L (21-32) Anion Gap 13 (6-14) Blood Urea Nitrogen 15 mg/dL (8-26) Creatinine 1.3 mg/dL (0.7-1.3) Estimated GFR (Cockcroft-Gault) 54.0 BUN/Creatinine Ratio 12 (6-20) Glucose Level 143 mg/dL (70-99) Calcium Level 7.1 mg/dL (8.5-10.1) Total Bilirubin 1.1 mg/dL (0.2-1.0) Aspartate Amino Transf (AST/SGOT) 198 U/L (15-37) Alanine Aminotransferase (ALT/SGPT) 112 U/L (16-63) Alkaline Phosphatase 125 U/L (46-116) Troponin I Quantitative 7.800 ng/mL (0.000-0.055) Total Protein 5.9 g/dL (6.4-8.2) Albumin 2.9 g/dL (3.4-5.0) Albumin/Globulin Ratio 1.0 (1.0-1.7) Triglycerides Level 56 mg/dL (0-150) Cholesterol Level 90 mg/dL (0-200) LDL Cholesterol, Calculated 6 mg/dL (0-100) VLDL Cholesterol, Calculated 11 mg/dL (0-40) Non-HDL Cholesterol Calculated 17 mg/dL (0-129) HDL Cholesterol 73 mg/dL (40-60) Cholesterol/HDL Ratio 1.2 Objective Assessment S/P Cardiac arrest Leukocytosis likely reactive Aspiration possible CHF CAD Respiratory failure Plan Plan of Care change vanc and clinda to meropenem no levaquin jara culture supportive care d/w and son MICHAEL BONILLA MD Jan 22, 2019 08:22
[2019-01-22] MEDS ORDERED: ELECTROLYTE (ICU) PROTOCOL. MC SCH (09:00)
[2019-01-22] MEDS ORDERED: FAMOTIDINE 20 MG/2 ML VIAL IVP SCH (09:00)
[2019-01-22 09:25] LABS: BASE EXCESS ABG -9 mmol/L (-3-3); HCO3 ABG 17 mmol/L (21-28); PCO2 ABG 37 mmHg (35-46); PO2 ABG 78 mmHg (65-108); SAT O2 ABG 93 % (92-99)
[2019-01-22 09:27] LABS: FIO2 ABG 100
--- NOTE | 2019-01-22 09:30 | RAD ---
Chest radiograph 01/21/2019 10:12 PM INDICATION: Central line placement COMPARISON: January 21, 2019 TECHNIQUE: Supine frontal view of the chest is provided. FINDINGS: The cardiomediastinal silhouette is similar in appearance. Endotracheal tube is in similar position terminating 6.9 cm above the level of the dot. Right IJ central venous catheter is identified with the distal tip projecting over the expected region of the superior vena cava. Nasogastric tube is in similar position. Left chest wall cardiac device is identified with leads projecting over the right atrium and right ventricle. Median sternotomy changes are present. There is similar degree of bilateral perihilar interstitial opacities most suggestive of interstitial pulmonary edema. Small bilateral pleural effusions appear similar. No pneumothorax. IMPRESSION: New right IJ central venous catheter with the distal tip projecting over the superior vena cava. No pneumothorax. Similar aeration of the lungs compared to prior examination. Findings are most compatible with interstitial pulmonary edema. Electronically signed by: Jackie Bailey MD (01/22/2019 9:27 AM) [id number]
[2019-01-22] MEDS ORDERED: ACETAMINOPHEN 650 MG/20.3 ML SOLUTION. PEG PRN (09:45)
--- NOTE | 2019-01-22 10:26 | CARD ---
MR#: [id number] Date of Study: 01/22/2019 Ordering Physician: CARMEL VARGAS, Referring Physician: CARMEL VARGAS, Tech: Sandra Sharpe APPROVED REPORT EXAM: Two-dimensional and M-mode echocardiogram with Doppler and color Doppler. Other Information Quality : AverageHR: 61bpm Rhythm : PacemakerTechnically limited study due to body habitus. INDICATION COPD Atrial Fibrillation Congestive Heart Failure Surgery/Intervention Pacemaker: RISK FACTORS Hypertension Hyperlipidemia 2D DIMENSIONS RVDd3.2 (2.9-3.5cm)Left Atrium(2D)4.8 (1.6-4.0cm) IVSd1.3 (0.7-1.1cm)Aortic Root(2D)3.1 (2.0-3.7cm) LVDd6.0 (3.9-5.9cm)LVOT Diameter2.2 (1.8-2.4cm) PWd1.3 (0.7-1.1cm)LVDs4.5 (2.5-4.0cm) Aortic Valve AoV Peak Ranjeet.144.5cm/sAoV VTI33.0cm AO Peak GR.8.3mmHgLVOT VTI 14.94cm AO Mean GR.5mmHgAI P 1/2 [id number] Mitral Valve MV E Cigywclu005.0cm/sMV DECEL [id number] TDI Lateral E' P. V5.69cm/sMedial E' P. V5.35cm/s E/Lateral E'17.8E/Medial E'18.9 Tricuspid Valve TR P. [id number]/sRAP [id number] TR Peak Gr.[id number] Pulmonary Vein S2 Zcvwvpwv97.98cm/sD2 Aeoagobm64.0cm/s LEFT VENTRICLE The left ventricle is normal size. There is normal left ventricular wall thickness. The systolic func tion is severely impaired. EF 25% There is global hypokinesis with septal motion suggestive of conduc tion defect. Tissue Doppler imaging reveals moderate left ventricular diastolic dysfunction. RIGHT VENTRICLE The right ventricle is mildly dilated. There is normal right ventricular wall thickness. The right ve ntricular systolic function is normal. There is a pacemaker lead in the right ventricle. ATRIA The left atrium is mildly dilated. The right atrium is moderately dilated. The interatrial septum is intact with no evidence for an atrial septal defect or patent foramen ovale as noted on 2-D or Dopple r imaging. AORTIC VALVE The aortic valve is calcified and displays decreased opening. Doppler and Color Flow revealed trace a ortic regurgitation. There is no significant aortic valvular stenosis. MITRAL VALVE The mitral valve is thickened but opens well. Mitral annular calcification is moderate. There is no e vidence of mitral valve prolapse. There is no mitral valve stenosis. Doppler and Color Flow revealed no mitral valve regurgitation noted. TRICUSPID VALVE Doppler and Color Flow revealed trace tricuspid regurgitation with an estimated PAP of 49 mmHg. There is no tricuspid valve stenosis. PULMONIC VALVE Doppler and Color Flow revealed trace to mild pulmonic valvular regurgitation. There is no pulmonic v alvular stenosis. GREAT VESSELS The aortic root is normal in size. The IVC is dilated and collapses >50% with inspiration. PERICARDIAL EFFUSION There is no evidence of significant pericardial effusion. Critical Notification Critical Value: No <Conclusion> There is global hypokinesis with septal motion suggestive of conduction defect. There is a pacemaker lead in the right ventricle. Doppler and Color Flow revealed trace tricuspid regurgitation with an estimated PAP of 49 mmHg. Technically difficult study Signed by : Cyrus Stern, Electronically Approved : 01/22/2019 10:26:08
--- NOTE | 2019-01-22 10:42 | PDOC2 ---
CONSULT Date of Consult Date of Consult DATE: 01/22/19 TIME: 10:35 Identification/Chief Complaint Chief Complaint THIS IS A 73 YR OLD PT WITH CARDIAC ARREST WITH [facility]. HE IS NOW IN THE ICU ON THE VENT. NA OF 122. INCREASED LFT'S AND LOW MAG NOTED. CARDIOLOGY AND PULMONARY EVAL ONGOING. ID ALSO SEEING PT FOR LEUCOCYTOSIS. CURRENTLY HEMODYNAMICALLY STABLE Source Source: Chart review History of Present Illness Reason for Visit: ABOVE Past Medical History Cardiovascular: HTN, Hyperlipidemia Pulmonary: COPD Psych: No pertinent hx Musculoskeletal: Osteoarthritis Infectious disease: No pertinent hx Renal/: No pertinent hx Endocrine: No pertinent hx Family History Family History: Heart Disease, Hypertension Social History Social History UNKNOWN BUT ? TOB AND ETOH HX Quit ALCOHOL: heavy Drugs: None Current Problem List Problem List Problems Medical Problems: (1) Cardiac arrest with ventricular fibrillation Status: Acute (2) COPD (chronic obstructive pulmonary disease) Status: Chronic (3) Hyponatremia Status: Acute (4) Respiratory failure Status: Acute (5) Severe sepsis Status: Acute Current Medications Current Medications Current Medications Sodium Chloride 1,000 ml @ 1,000 mls/hr 1X ONCE IV Last administered on 01/22/19at 00:16; Start 01/21/19 at 21:00; Stop 01/21/19 at 21:59; Status DC Dopamine HCl/ Dextrose 250 ml @ 5.762 mls/ hr 1X ONCE IV Last administered on 01/22/19at 00:17; Start 01/21/19 at 21:15; Stop 01/23/19 at 16:38 Epinephrine HCl (EPINEPHrine SYRINGE) 1 mg 1X ONCE IV Last administered on 01/22/19at 00:16; Start 01/21/19 at 21:15; Stop 01/21/19 at 21:16; Status DC Epinephrine HCl (EPINEPHrine SYRINGE) 1 mg 1X ONCE IV Last administered on 01/22/19at 00:16; Start 01/21/19 at 21:15; Stop 01/21/19 at 21:16; Status DC Epinephrine HCl (EPINEPHrine SYRINGE) 1 mg 1X ONCE IV Last administered on 01/22/19at 00:16; Start 01/21/19 at 21:15; Stop 01/21/19 at 21:16; Status DC Ondansetron HCl (Zofran) 4 mg PRN Q8HRS PRN IV NAUSEA/VOMITING; Start 01/21/19 at 21:00; Stop 01/22/19 at 20:59 Fentanyl Citrate (Fentanyl 2ml Vial) 25 mcg PRN Q1HR PRN IV SEE COMMENTS; Start 01/21/19 at 21:00 Fentanyl Citrate (Fentanyl 2ml Vial) 50 mcg PRN Q1HR PRN IV SEE COMMENTS Last administered on 01/22/19at 00:24; Start 01/21/19 at 21:00 Chlorhexidine Gluconate (Peridex) 15 ml BID MM Last administered on 01/22/19at 00:24; Start 01/21/19 at 21:15 Famotidine (Pepcid Vial) 20 mg BID IVP ; Start 01/21/19 at 21:15; Stop 01/21/19 at 22:49; Status DC Sodium Bicarbonate (Sodium Bicarb Adult 8.4% Syr) 50 meq 1X ONCE IV Last administered on 01/22/19at 00:16; Start 01/21/19 at 21:15; Stop 01/21/19 at 21:16; Status DC Midazolam HCl (Versed) 5 mg 1X ONCE IV ; Start 01/21/19 at 21:30; Stop 01/21/19 at 21:31; Status DC Fentanyl Citrate (Fentanyl 2ml Vial) 100 mcg 1X ONCE IV Last administered on 01/22/19at 00:16; Start 01/21/19 at 21:30; Stop 01/21/19 at 21:31; Status DC Propofol 100 ml @ 1.152 mls/ hr CONT PRN IV SEE I/O RECORD Last administered on 01/22/19at 00:24; Start 01/21/19 at 21:30 Fentanyl Citrate (Fentanyl 2ml Vial) 100 mcg STK-MED ONCE .ROUTE ; Start 01/21/19 at 21:29; Stop 01/21/19 at 21:29; Status DC Vancomycin HCl (Vanco Per Pharmacy) 1 each PRN DAILY PRN MC SEE COMMENTS Last administered on 01/22/19at 01:21; Start 01/21/19 at 22:45; Stop 01/22/19 at 08:15; Status DC Ondansetron HCl (Zofran) 4 mg PRN Q6HRS PRN IV NAUSEA/VOMITING; Start 01/21/19 at 22:45 Famotidine (Pepcid Vial) 20 mg BID IVP ; Start 01/22/19 at 09:00; Stop 01/22/19 at 10:24; Status DC Info (Icu Electrolyte Protocol) 1 ea DAILY MC ; Start 01/22/19 at 09:00 Heparin Sodium (Porcine) (Heparin Sodium) 5,000 unit Q8HRS SQ ; Start 01/22/19 at 06:00 Sodium Chloride (Normal Saline Flush) 3 ml QSHIFT PRN IV AFTER MEDS AND BLOOD DRAWS; Start 01/21/19 at 22:45 Vancomycin HCl 2 gm/Sodium Chloride 500 ml @ 250 mls/hr 1X ONCE IV Last administered on 01/22/19at 00:59; Start 01/21/19 at 23:00; Stop 01/22/19 at 00:59; Status DC Levofloxacin/ Dextrose 100 ml @ 100 mls/hr 1X ONCE IV Last administered on 01/22/19at 00:59; Start 01/21/19 at 23:00; Stop 01/21/19 at 23:59; Status DC Linezolid/Dextrose 300 ml @ 300 mls/hr Q12HR IV ; Start 01/22/19 at 09:00; Status UNV Clindamycin Phosphate 50 ml @ 100 mls/hr Q8HRS IV Last administered on 01/22/19at 05:32; Start 01/22/19 at 06:00; Stop 01/22/19 at 08:15; Status DC Sodium Chloride 1,000 ml @ 1,000 mls/hr 1X ONCE IV Last administered on 01/22/19at 00:23; Start 01/22/19 at 00:15; Stop 01/22/19 at 01:14; Status DC Sodium Chloride 1,000 ml @ 125 mls/hr 1X ONCE IV Last administered on 01/22/19at 00:22; Start 01/22/19 at 00:15; Stop 01/22/19 at 08:14; Status DC Midazolam HCl 100 ml @ 5 mls/hr CONT PRN IV SEE I/O RECORD Last administered on 01/22/19at 00:59; Start 01/22/19 at 00:30 Magnesium Sulfate/ Dextrose 100 ml @ 100 mls/hr 1X ONCE IV Last administered on 01/22/19at 00:59; Start 01/22/19 at 01:00; Stop 01/22/19 at 01:59; Status DC Buspirone HCl (Buspar) 30 mg Q8H NG Last administered on 01/22/19at 01:12; Start 01/22/19 at 01:00; Stop 01/23/19 at 17:01 Acetaminophen (Tylenol) 650 mg Q4HRS NG Last administered on 01/22/19at 05:32; Start 01/22/19 at 00:30 Artificial Tears (Artificial Tears) 1 drop Q6HRS OU Last administered on 01/22/19at 05:32; Start 01/22/19 at 06:00 Artificial Tears (Artificial Tears) 1 drop PRN Q15MIN PRN OU DRY EYE; Start 01/22/19 at 00:30 Pantoprazole Sodium (PROTONIX VIAL for IV PUSH) 40 mg DAILY IVP ; Start 01/22/19 at 09:00 Fentanyl Citrate 30 ml @ 0 mls/hr CONT PRN IV PER PROTOCOL. Last administered on 01/22/19at 10:09; Start 01/22/19 at 01:00 Vecuronium [place] (Norcuron Bolus) 8 mg PRN Q1HR PRN IV SHIVERING; Start 01/22/19 at 00:30 Aspirin (Aspirin Rectal Supp) 300 mg 1X ONCE GA Last administered on 01/22/19at 00:59; Start 01/22/19 at 01:00; Stop 01/22/19 at 01:01; Status DC Vancomycin HCl 1 gm/Sodium Chloride 250 ml @ 250 mls/hr Q12H IV ; Start 01/22 at 13:00; Stop 01/22/19 at 08:15; Status DC Vancomycin HCl (Vancomycin Trough Level) 1 each 1X ONCE MC ; Start 01/23/19 at 12:30; Stop 01/23/19 at 12:31; Status Cancel Meropenem 500 mg/ Sodium Chloride 50 ml @ 100 mls/hr Q8HRS IV ; Start 01/22/19 at 14:00 Acetaminophen (Tylenol) 650 mg PRN Q6HRS PRN PEG MILD PAIN / TEMP; Start 01/22/19 at 09:45 Active Scripts Active Reported Fish Oil 1,000 Mg Capsule ([place]-3 Fatty Acids/Fish Oil) 1 Each Capsule 1 Each PO DAILY Clopidogrel (Clopidogrel Bisulfate) 75 Mg Tablet 1 Tab PO DAILY Aspirin 81 Mg Tab.chew 1 Tab PO DAILY Warfarin Sodium 2.5 Mg Tablet 2.5 Mg PO DAILY Warfarin Sodium 5 Mg Tablet 5 Mg PO DAILY Spironolactone 25 Mg Tablet 1 Tab PO DAILY Metoprolol Tartrate 100 Mg Tablet 1.5 Tab PO DAILY Lipitor (Atorvastatin Calcium) 80 Mg Tablet 1 Tab PO DAILY Protonix (Pantoprazole Sodium) 20 Mg Tablet.dr 2 Tab PO DAILY Mag-Oxide (Magnesium Oxide) 400 Mg Tablet 1 Tab PO DAILY Multivitamins (Multivitamin) 1 Each Tablet 1 Tab PO DAILY Albuterol Sulfate Conc Neb Soln (Albuterol Sulfate) 2.5 Mg/0.5 Ml Vial.neb 1 Vial NEB Q6HRS Zyrtec (Cetirizine Hcl) 10 Mg Tablet 1 Tab PO DAILY Advair 100-50 Diskus (Fluticasone/Salmeterol) 1 Each Disk.w.dev 1 Puff IH BID NITROGLYCERIN SubLingual (Nitroglycerin) 0.4 Mg Tab.subl 0.4 Mg SL PRN Q5MIN PRN Allergies Allergies: Coded Allergies: Penicillins (Verified Allergy, Unknown, 01/21/19) amiodarone (Verified Allergy, Unknown, 01/21/19) ROS Review of System UNABLE TO OBTAIN Physical Exam General: Other (SEDATED) HEENT: Atraumatic Lungs: Other (DECREASED AT BASES) Heart: Regular rate Abdomen: Normal bowel sounds, Other (HYPOACTIVE) Skin: No rashes Neuro: Other (SEDATED) Psych/Mental Status: Other (SEDATED) MUSCULOSKELETAL: No joint tenderness, No deformity Vitals VITALS Vital Signs Date Time Temp Pulse Resp B/P (MAP) Pulse Ox O2 Delivery O2 Flow Rate FiO2 01/22/19 10:09 100 15.0 01/22/19 07:30 Ventilator 01/22/19 07:00 93.4 01/22/19 06:00 59 24 Labs Labs Laboratory Tests Test 01/21/19 20:24 01/21/19 20:40 01/21/19 20:42 01/21/19 20:47 Glucose (Fingerstick) 112 mg/dL (70-99) O2 Saturation 90 % (92-99) Arterial Blood pH 7.00 (7.35-7.45) Arterial Blood pCO2 at Patient Temp 52 mmHg (35-46) Arterial Blood pO2 at Patient Temp 92 mmHg (65-108) Arterial Blood HCO3 13 mmol/L (21-28) Arterial Blood Base Excess -19 mmol/L (-3-3) Oxyhemoglobin 89.3 % Methemoglobin 0.6 % (0.0-1.9) Carbon Monoxide, Quantitative 0.3 % (0.0-1.9) FiO2 100 Bedside Troponin I 0.43 ng/ml (<0.08) Bedside Hemoglobin 13.3 g/dL (14-18) Bedside Hematocrit 39 % (37-52) Bedside Sodium 122 mmol/L (135-145) Bedside Potassium 4.0 mmol/L (3.5-5.0) Bedside Chloride 94 mmol/L (98-110) Bedside Total CO2 17 mmol/L (23-32) Anion Gap 16 mmol/L (6-14) Bedside Blood Urea Nitrogen 9 mg/dL (8-26) Bedside Creatinine 1.2 mg/dL (0.5-1.4) Glucose Level 126 mg/dL (70-99) Bedside Ionized Calcium (Amada) 0.93 mmol/L (1.13-1.32) Test 01/21/19 21:46 01/21/19 23:03 01/21/19 23:20 01/21/19 23:31 O2 Saturation 85 % (92-99) 96 % (92-99) Arterial Blood pH 7.09 (7.35-7.45) 7.22 (7.35-7.45) Arterial Blood pCO2 at Patient Temp 56 mmHg (35-46) 37 mmHg (35-46) Arterial Blood pO2 at Patient Temp 72 mmHg (65-108) 106 mmHg (65-108) Arterial Blood HCO3 17 mmol/L (21-28) 15 mmol/L (21-28) Arterial Blood Base Excess -14 mmol/L (-3-3) -12 mmol/L (-3-3) FiO2 100 100 Arterial Blood pH (Temp corrected) 7.26 Arterial Blood pCO2 (Temp correct) 33 mmHg Arterial Blood pO2 (Temp corrected) 91 mmHg Oxyhemoglobin 95.0 % Methemoglobin 0.3 % (0.0-1.9) Carbon Monoxide, Quantitative 0.5 % (0.0-1.9) White Blood Count 21.0 x10^3/uL (4.0-11.0) Red Blood Count 4.06 x10^6/uL (4.30-5.70) Hemoglobin 12.1 g/dL (13.0-17.5) Hematocrit 36.4 % (39.0-53.0) Mean Corpuscular Volume 90 fL (79-100) Mean Corpuscular Hemoglobin 30 pg (25-35) Mean Corpuscular Hemoglobin Concent 33 g/dL (31-37) Red Cell Distribution Width 17.5 % (11.5-14.5) Platelet Count 157 x10^3/uL (140-400) Neutrophils (%) (Auto) 88 % (31-73) Lymphocytes (%) (Auto) 4 % (24-48) Monocytes (%) (Auto) 7 % (0-9) Eosinophils (%) (Auto) 0 % (0-3) Basophils (%) (Auto) 0 % (0-3) Neutrophils # (Auto) 18.5 x10^3/uL (1.8-7.7) Lymphocytes # (Auto) 0.9 x10^3/uL (1.0-4.8) Monocytes # (Auto) 1.4 x10^3/uL (0.0-1.1) Eosinophils # (Auto) 0.1 x10^3/uL (0.0-0.7) Basophils # (Auto) 0.1 x10^3/uL (0.0-0.2) Segmented Neutrophils % 63 % (35-66) Band Neutrophils % 22 % (0-9) Lymphocytes % 7 % (24-48) Monocytes % 4 % (0-10) Metamyelocytes % 2 % (0-0) Myelocytes % 1 % (0-0) Promyelocytes % 1 % (0-0) Toxic Granulation Slight Platelet Estimate Adequate (ADEQUATE) Anisocytosis Slight Prothrombin Time 35.8 SEC (11.7-14.0) Prothromb Time International Ratio 3.6 (0.8-1.1) Sodium Level 126 mmol/L (136-145) Potassium Level 5.6 mmol/L (3.5-5.1) Chloride Level 92 mmol/L (98-107) Carbon Dioxide Level 20 mmol/L (21-32) Anion Gap 14 (6-14) Blood Urea Nitrogen 12 mg/dL (8-26) Creatinine 1.2 mg/dL (0.7-1.3) Estimated GFR (Cockcroft-Gault) 59.2 BUN/Creatinine Ratio 10 (6-20) Glucose Level 134 mg/dL (70-99) Lactic Acid Level 3.7 mmol/L (0.4-2.0) Calcium Level 7.2 mg/dL (8.5-10.1) Phosphorus Level 6.8 mg/dL (2.6-4.7) Magnesium Level 1.5 mg/dL (1.8-2.4) Total Bilirubin 0.9 mg/dL (0.2-1.0) Aspartate Amino Transf (AST/SGOT) 225 U/L (15-37) Alanine Aminotransferase (ALT/SGPT) 125 U/L (16-63) Alkaline Phosphatase 151 U/L (46-116) Creatine Kinase 733 U/L (39-308) Creatine Kinase MB (Mass) 28.2 ng/mL (0.0-3.6) Creatine Kinase MB Relative Index 3.8 % (0-4) Troponin I Quantitative 4.112 ng/mL (0.000-0.055) C-Reactive Protein, Quantitative 5.8 mg/L (0-3.3) HX-Jig-I-Type Natriuretic Peptide 3826 pg/mL (0-124) Total Protein 6.1 g/dL (6.4-8.2) Albumin 3.1 g/dL (3.4-5.0) Albumin/Globulin Ratio 1.0 (1.0-1.7) Lipase 86 U/L (73-393) Procalcitonin 0.16 ng/mL (0.00-0.10) Thyroid Stimulating Hormone (TSH) 1.556 uIU/mL (0.358-3.74) Glucose (Fingerstick) 114 mg/dL (70-99) Test 01/22/19 05:38 01/22/19 05:40 01/22/19 09:15 Glucose (Fingerstick) 149 mg/dL (70-99) Sodium Level 125 mmol/L (136-145) Potassium Level 4.0 mmol/L (3.5-5.1) Chloride Level 94 mmol/L (98-107) Carbon Dioxide Level 18 mmol/L (21-32) Anion Gap 13 (6-14) Blood Urea Nitrogen 15 mg/dL (8-26) Creatinine 1.3 mg/dL (0.7-1.3) Estimated GFR (Cockcroft-Gault) 54.0 BUN/Creatinine Ratio 12 (6-20) Glucose Level 143 mg/dL (70-99) Calcium Level 7.1 mg/dL (8.5-10.1) Total Bilirubin 1.1 mg/dL (0.2-1.0) Aspartate Amino Transf (AST/SGOT) 198 U/L (15-37) Alanine Aminotransferase (ALT/SGPT) 112 U/L (16-63) Alkaline Phosphatase 125 U/L (46-116) Troponin I Quantitative 7.800 ng/mL (0.000-0.055) Total Protein 5.9 g/dL (6.4-8.2) Albumin 2.9 g/dL (3.4-5.0) Albumin/Globulin Ratio 1.0 (1.0-1.7) Triglycerides Level 56 mg/dL (0-150) Cholesterol Level 90 mg/dL (0-200) LDL Cholesterol, Calculated 6 mg/dL (0-100) VLDL Cholesterol, Calculated 11 mg/dL (0-40) Non-HDL Cholesterol Calculated 17 mg/dL (0-129) HDL Cholesterol 73 mg/dL (40-60) Cholesterol/HDL Ratio 1.2 O2 Saturation 93 % (92-99) Arterial Blood pH 7.29 (7.35-7.45) Arterial Blood pCO2 at Patient Temp 37 mmHg (35-46) Arterial Blood pO2 at Patient Temp 78 mmHg (65-108) Arterial Blood HCO3 17 mmol/L (21-28) Arterial Blood Base Excess -9 mmol/L (-3-3) FiO2 100 Laboratory Tests Test 01/21/19 20:24 01/21/19 20:40 01/21/19 20:42 01/21/19 20:47 Glucose (Fingerstick) 112 mg/dL (70-99) O2 Saturation 90 % (92-99) Arterial Blood pH 7.00 (7.35-7.45) Arterial Blood pCO2 at Patient Temp 52 mmHg (35-46) Arterial Blood pO2 at Patient Temp 92 mmHg (65-108) Arterial Blood HCO3 13 mmol/L (21-28) Arterial Blood Base Excess -19 mmol/L (-3-3) Oxyhemoglobin 89.3 % Methemoglobin 0.6 % (0.0-1.9) Carbon Monoxide, Quantitative 0.3 % (0.0-1.9) FiO2 100 Bedside Troponin I 0.43 ng/ml (<0.08) Bedside Hemoglobin 13.3 g/dL (14-18) Bedside Hematocrit 39 % (37-52) Bedside Sodium 122 mmol/L (135-145) Bedside Potassium 4.0 mmol/L (3.5-5.0) Bedside Chloride 94 mmol/L (98-110) Bedside Total CO2 17 mmol/L (23-32) Anion Gap 16 mmol/L (6-14) Bedside Blood Urea Nitrogen 9 mg/dL (8-26) Bedside Creatinine 1.2 mg/dL (0.5-1.4) Glucose Level 126 mg/dL (70-99) Bedside Ionized Calcium (Amada) 0.93 mmol/L (1.13-1.32) Test 01/21/19 21:46 01/21/19 23:03 01/21/19 23:20 01/21/19 23:31 O2 Saturation 85 % (92-99) 96 % (92-99) Arterial Blood pH 7.09 (7.35-7.45) 7.22 (7.35-7.45) Arterial Blood pCO2 at Patient Temp 56 mmHg (35-46) 37 mmHg (35-46) Arterial Blood pO2 at Patient Temp 72 mmHg (65-108) 106 mmHg (65-108) Arterial Blood HCO3 17 mmol/L (21-28) 15 mmol/L (21-28) Arterial Blood Base Excess -14 mmol/L (-3-3) -12 mmol/L (-3-3) FiO2 100 100 Arterial Blood pH (Temp corrected) 7.26 Arterial Blood pCO2 (Temp correct) 33 mmHg Arterial Blood pO2 (Temp corrected) 91 mmHg Oxyhemoglobin 95.0 % Methemoglobin 0.3 % (0.0-1.9) Carbon Monoxide, Quantitative 0.5 % (0.0-1.9) White Blood Count 21.0 x10^3/uL (4.0-11.0) Red Blood Count 4.06 x10^6/uL (4.30-5.70) Hemoglobin 12.1 g/dL (13.0-17.5) Hematocrit 36.4 % (39.0-53.0) Mean Corpuscular Volume 90 fL (79-100) Mean Corpuscular Hemoglobin 30 pg (25-35) Mean Corpuscular Hemoglobin Concent 33 g/dL (31-37) Red Cell Distribution Width 17.5 % (11.5-14.5) Platelet Count 157 x10^3/uL (140-400) Neutrophils (%) (Auto) 88 % (31-73) Lymphocytes (%) (Auto) 4 % (24-48) Monocytes (%) (Auto) 7 % (0-9) Eosinophils (%) (Auto) 0 % (0-3) Basophils (%) (Auto) 0 % (0-3) Neutrophils # (Auto) 18.5 x10^3/uL (1.8-7.7) Lymphocytes # (Auto) 0.9 x10^3/uL (1.0-4.8) Monocytes # (Auto) 1.4 x10^3/uL (0.0-1.1) Eosinophils # (Auto) 0.1 x10^3/uL (0.0-0.7) Basophils # (Auto) 0.1 x10^3/uL (0.0-0.2) Segmented Neutrophils % 63 % (35-66) Band Neutrophils % 22 % (0-9) Lymphocytes % 7 % (24-48) Monocytes % 4 % (0-10) Metamyelocytes % 2 % (0-0) Myelocytes % 1 % (0-0) Promyelocytes % 1 % (0-0) Toxic Granulation Slight Platelet Estimate Adequate (ADEQUATE) Anisocytosis Slight Prothrombin Time 35.8 SEC (11.7-14.0) Prothromb Time International Ratio 3.6 (0.8-1.1) Sodium Level 126 mmol/L (136-145) Potassium Level 5.6 mmol/L (3.5-5.1) Chloride Level 92 mmol/L (98-107) Carbon Dioxide Level 20 mmol/L (21-32) Anion Gap 14 (6-14) Blood Urea Nitrogen 12 mg/dL (8-26) Creatinine 1.2 mg/dL (0.7-1.3) Estimated GFR (Cockcroft-Gault) 59.2 BUN/Creatinine Ratio 10 (6-20) Glucose Level 134 mg/dL (70-99) Lactic Acid Level 3.7 mmol/L (0.4-2.0) Calcium Level 7.2 mg/dL (8.5-10.1) Phosphorus Level 6.8 mg/dL (2.6-4.7) Magnesium Level 1.5 mg/dL (1.8-2.4) Total Bilirubin 0.9 mg/dL (0.2-1.0) Aspartate Amino Transf (AST/SGOT) 225 U/L (15-37) Alanine Aminotransferase (ALT/SGPT) 125 U/L (16-63) Alkaline Phosphatase 151 U/L (46-116) Creatine Kinase 733 U/L (39-308) Creatine Kinase MB (Mass) 28.2 ng/mL (0.0-3.6) Creatine Kinase MB Relative Index 3.8 % (0-4) Troponin I Quantitative 4.112 ng/mL (0.000-0.055) C-Reactive Protein, Quantitative 5.8 mg/L (0-3.3) DO-Tgi-D-Type Natriuretic Peptide 3826 pg/mL (0-124) Total Protein 6.1 g/dL (6.4-8.2) Albumin 3.1 g/dL (3.4-5.0) Albumin/Globulin Ratio 1.0 (1.0-1.7) Lipase 86 U/L (73-393) Procalcitonin 0.16 ng/mL (0.00-0.10) Thyroid Stimulating Hormone (TSH) 1.556 uIU/mL (0.358-3.74) Glucose (Fingerstick) 114 mg/dL (70-99) Test 01/22/19 05:38 01/22/19 05:40 01/22/19 09:15 Glucose (Fingerstick) 149 mg/dL (70-99) Sodium Level 125 mmol/L (136-145) Potassium Level 4.0 mmol/L (3.5-5.1) Chloride Level 94 mmol/L (98-107) Carbon Dioxide Level 18 mmol/L (21-32) Anion Gap 13 (6-14) Blood Urea Nitrogen 15 mg/dL (8-26) Creatinine 1.3 mg/dL (0.7-1.3) Estimated GFR (Cockcroft-Gault) 54.0 BUN/Creatinine Ratio 12 (6-20) Glucose Level 143 mg/dL (70-99) Calcium Level 7.1 mg/dL (8.5-10.1) Total Bilirubin 1.1 mg/dL (0.2-1.0) Aspartate Amino Transf (AST/SGOT) 198 U/L (15-37) Alanine Aminotransferase (ALT/SGPT) 112 U/L (16-63) Alkaline Phosphatase 125 U/L (46-116) Troponin I Quantitative 7.800 ng/mL (0.000-0.055) Total Protein 5.9 g/dL (6.4-8.2) Albumin 2.9 g/dL (3.4-5.0) Albumin/Globulin Ratio 1.0 (1.0-1.7) Triglycerides Level 56 mg/dL (0-150) Cholesterol Level 90 mg/dL (0-200) LDL Cholesterol, Calculated 6 mg/dL (0-100) VLDL Cholesterol, Calculated 11 mg/dL (0-40) Non-HDL Cholesterol Calculated 17 mg/dL (0-129) HDL Cholesterol 73 mg/dL (40-60) Cholesterol/HDL Ratio 1.2 O2 Saturation 93 % (92-99) Arterial Blood pH 7.29 (7.35-7.45) Arterial Blood pCO2 at Patient Temp 37 mmHg (35-46) Arterial Blood pO2 at Patient Temp 78 mmHg (65-108) Arterial Blood HCO3 17 mmol/L (21-28) Arterial Blood Base Excess -9 mmol/L (-3-3) FiO2 100 Assessment/Plan Assessment/Plan IMP HYPONATREMIA CARDIAC ARREST-VFIB ACUTE RESP FAILURE CARDIOGENIC SHOCK CHF-SUSPECT SYSTOLIC AND DIASTOLIC ACUTE AND CHRONIC LEUCOCYTOSIS-REACTIVE VS SEPSIS HYPOMAGNESEMIA INCREASED LFTS-SHOCK PLAN VENT SUPPORT CARDIOLOGY EVAL PULM AND ID EVAL CHECK URINE LYTES IV LASIX REPLACE MAG WILL FOLLOW LAKISHA AWAD MD Jan 22, 2019 10:42
[2019-01-22] MEDS ORDERED: MAGNESIUM SULFATE 2GM 50 ML IV ONE (11:00)
[2019-01-22] MEDS: PANTOPRAZOLE IV PUSH 40 MG VIAL. IVP SCH (11:40)
--- NOTE | 2019-01-22 11:41 | PDOC2 ---
CARDIOLOGY CONSULT NOTE [facility]IF COMPLAINT: Syncope, cardiac arrest HPI: 73-year-old man coming into the hospital in the setting of syncope and cardiac arrest. He probably was in her usual state of health and was working in the garden outside and came into his kitchen and had a syncopal event and passed out. 911 was called and upon arrival he was noted to have V. fib/V. tach and was pulseless. Appropriate ACLS protocol was completed he would arrive to the hospital in the setting of recurrent hypotension requiring CPR. He did not have any other arrhythmias. Admitted with a cooling protocol on board into the ICU. In speaking with the patient's family he apparently recently underwent a cardiac catheterization in October 2018 at [facility] with his cardiology is Dr. Dumas and ultimately was diagnosed with pulmonary hypertension is supposed to follow-up with the pulmonary hypertension clinic at [facility]. Previous to the episode he did not have any palpitations, chest pain or dyspnea. At baseline he is able to perform activities of daily living without any significant limitations but does have some exertional dyspnea while doing thinks it is climbing stairs. PMHX: CAD s/p 3V CABG 2002 Chronic afib on anticoagulation HTN DLP COPD OA Pulmonary HTN SOCHX: Prior smoker. FAMHX: NC CURRENT MEDS: Dopamine gtt ALLERGIES: Allergies Coded Allergies Type Severity Reaction Last Updated Verified Penicillins Allergy Unknown 01/21/19 Yes amiodarone Allergy Unknown 01/21/19 Yes ROS: Unable to obtain due to intubated patient but according to family, no recent cardiac issues. Follows with [facility] for pulmonary HTN PHYSICAL EXAM: Vital Signs/I&O: Temp 92 RR- 20, Vt 500, PEEP: 5, 100% FiO2 Physical Exam: GEN.: Non responsive, sedated HEENT: Head is normocephalic, atraumatic. Pupils reactive NECK: Supple. LUNGS: Wheezing HEART: RRR, S1, S2 present. Peripheral pulses intact ABDOMEN: Soft, nontender. Positive bowel sounds. EXTREMITIES: Without any cyanosis. NEUROLOGIC: hypothermia protocol, deferred SKIN: No ulcerations DIAGNOSTIC TESTING: WBC 21 K Hgb 12.1 Cr 1.3 Liver enzymes elevated trop 7.8 7.22/37/[address] negative CXR: Edema versus ARDS INR 3.6 Echo - Severe LV dysfunction. PASP 49 mm hg ASSESSMENT: 1. Cardiac arrest - DDx: CAD with NSTEMI, VF/VT, hypotension 2. Pulmonary HTN - 3. ARDS - 4. Acute on chronic systolic HF PLAN: 1. Interrogate device to rule out VT/VF 2. Obtain [facility] records. 3. Will discuss with his biophysics scientist Dr. dumas at 4. He was being evaluated for pulm HTN due to presumed COPD, had a heart cath in 10/2018 5. Continue cooling protocol 6. hold hep gtt due to possible ARDS and pulm hemorrhage. Continue to trend enzymes. Supportive care. Discussed at length with family. TEQUILA YAP MD Jan 22, 2019 11:41
--- NOTE | 2019-01-22 11:44 | PDOC ---
PROGRESS NOTES Chief Complaint Chief Complaint 1. OUT OF HOSP CADIAC ARrest with ROSC (10 mins down time approx) 2. Patchy bilateral airspace disease and cardiomegaly. Findings could be related to pulmonary edema, multifocal infection, or ARDS on pcxr 3. COPD 4. RESP ACIDOSIS/ metabolic acidosis 5, RESP FAILURE, POSSIBLE ASPIRATION// hypercapnic 6. Cardiogenic shock 7. elevated troponin i 8. severe sepsis 9. hyponatremia 10. heat exposure prior to CARDIAC arrest 11. moderate alcohol use 12. remote tobacco abuse History of Present Illness History of Present Illness HX of cardiac stent/CABG NOn dM UNdergoing hypothermia protocol NUmerous fam members at bedside To be rewarned later 2 AM WBC 21, Hgb12, Na 125 PLAN: HYpothermia protocol in process LAbs and results of imaging dw family Will start TF once normothermic FULL CODE for now (previously ambulatory with decent QOL) Vitals Vitals Vital Signs Date Time Temp Pulse Resp B/P (MAP) Pulse Ox O2 Delivery O2 Flow Rate FiO2 01/22/19 10:09 100 15.0 01/22/19 10:00 92.2 01/22/19 08:00 Mechanical Ventilator 01/22/19 06:00 59 24 Physical Exam General: Other (SEDATED) Heart: Regular rate Abdomen: Normal bowel sounds, Other (HYPOACTIVE) Extremities: No cyanosis Skin: No rashes Labs LABS Laboratory Tests Test 01/21/19 20:24 01/21/19 20:40 01/21/19 20:42 01/21/19 20:47 Glucose (Fingerstick) 112 mg/dL (70-99) O2 Saturation 90 % (92-99) Arterial Blood pH 7.00 (7.35-7.45) Arterial Blood pCO2 at Patient Temp 52 mmHg (35-46) Arterial Blood pO2 at Patient Temp 92 mmHg (65-108) Arterial Blood HCO3 13 mmol/L (21-28) Arterial Blood Base Excess -19 mmol/L (-3-3) Oxyhemoglobin 89.3 % Methemoglobin 0.6 % (0.0-1.9) Carbon Monoxide, Quantitative 0.3 % (0.0-1.9) FiO2 100 Bedside Troponin I 0.43 ng/ml (<0.08) Bedside Hemoglobin 13.3 g/dL (14-18) Bedside Hematocrit 39 % (37-52) Bedside Sodium 122 mmol/L (135-145) Bedside Potassium 4.0 mmol/L (3.5-5.0) Bedside Chloride 94 mmol/L (98-110) Bedside Total CO2 17 mmol/L (23-32) Anion Gap 16 mmol/L (6-14) Bedside Blood Urea Nitrogen 9 mg/dL (8-26) Bedside Creatinine 1.2 mg/dL (0.5-1.4) Glucose Level 126 mg/dL (70-99) Bedside Ionized Calcium (Amada) 0.93 mmol/L (1.13-1.32) Test 01/21/19 21:46 01/21/19 23:03 01/21/19 23:20 01/21/19 23:31 O2 Saturation 85 % (92-99) 96 % (92-99) Arterial Blood pH 7.09 (7.35-7.45) 7.22 (7.35-7.45) Arterial Blood pCO2 at Patient Temp 56 mmHg (35-46) 37 mmHg (35-46) Arterial Blood pO2 at Patient Temp 72 mmHg (65-108) 106 mmHg (65-108) Arterial Blood HCO3 17 mmol/L (21-28) 15 mmol/L (21-28) Arterial Blood Base Excess -14 mmol/L (-3-3) -12 mmol/L (-3-3) FiO2 100 100 Arterial Blood pH (Temp corrected) 7.26 Arterial Blood pCO2 (Temp correct) 33 mmHg Arterial Blood pO2 (Temp corrected) 91 mmHg Oxyhemoglobin 95.0 % Methemoglobin 0.3 % (0.0-1.9) Carbon Monoxide, Quantitative 0.5 % (0.0-1.9) White Blood Count 21.0 x10^3/uL (4.0-11.0) Red Blood Count 4.06 x10^6/uL (4.30-5.70) Hemoglobin 12.1 g/dL (13.0-17.5) Hematocrit 36.4 % (39.0-53.0) Mean Corpuscular Volume 90 fL (79-100) Mean Corpuscular Hemoglobin 30 pg (25-35) Mean Corpuscular Hemoglobin Concent 33 g/dL (31-37) Red Cell Distribution Width 17.5 % (11.5-14.5) Platelet Count 157 x10^3/uL (140-400) Neutrophils (%) (Auto) 88 % (31-73) Lymphocytes (%) (Auto) 4 % (24-48) Monocytes (%) (Auto) 7 % (0-9) Eosinophils (%) (Auto) 0 % (0-3) Basophils (%) (Auto) 0 % (0-3) Neutrophils # (Auto) 18.5 x10^3/uL (1.8-7.7) Lymphocytes # (Auto) 0.9 x10^3/uL (1.0-4.8) Monocytes # (Auto) 1.4 x10^3/uL (0.0-1.1) Eosinophils # (Auto) 0.1 x10^3/uL (0.0-0.7) Basophils # (Auto) 0.1 x10^3/uL (0.0-0.2) Segmented Neutrophils % 63 % (35-66) Band Neutrophils % 22 % (0-9) Lymphocytes % 7 % (24-48) Monocytes % 4 % (0-10) Metamyelocytes % 2 % (0-0) Myelocytes % 1 % (0-0) Promyelocytes % 1 % (0-0) Toxic Granulation Slight Platelet Estimate Adequate (ADEQUATE) Anisocytosis Slight Prothrombin Time 35.8 SEC (11.7-14.0) Prothromb Time International Ratio 3.6 (0.8-1.1) Sodium Level 126 mmol/L (136-145) Potassium Level 5.6 mmol/L (3.5-5.1) Chloride Level 92 mmol/L (98-107) Carbon Dioxide Level 20 mmol/L (21-32) Anion Gap 14 (6-14) Blood Urea Nitrogen 12 mg/dL (8-26) Creatinine 1.2 mg/dL (0.7-1.3) Estimated GFR (Cockcroft-Gault) 59.2 BUN/Creatinine Ratio 10 (6-20) Glucose Level 134 mg/dL (70-99) Lactic Acid Level 3.7 mmol/L (0.4-2.0) Calcium Level 7.2 mg/dL (8.5-10.1) Phosphorus Level 6.8 mg/dL (2.6-4.7) Magnesium Level 1.5 mg/dL (1.8-2.4) Total Bilirubin 0.9 mg/dL (0.2-1.0) Aspartate Amino Transf (AST/SGOT) 225 U/L (15-37) Alanine Aminotransferase (ALT/SGPT) 125 U/L (16-63) Alkaline Phosphatase 151 U/L (46-116) Creatine Kinase 733 U/L (39-308) Creatine Kinase MB (Mass) 28.2 ng/mL (0.0-3.6) Creatine Kinase MB Relative Index 3.8 % (0-4) Troponin I Quantitative 4.112 ng/mL (0.000-0.055) C-Reactive Protein, Quantitative 5.8 mg/L (0-3.3) WF-Iad-Z-Type Natriuretic Peptide 3826 pg/mL (0-124) Total Protein 6.1 g/dL (6.4-8.2) Albumin 3.1 g/dL (3.4-5.0) Albumin/Globulin Ratio 1.0 (1.0-1.7) Lipase 86 U/L (73-393) Procalcitonin 0.16 ng/mL (0.00-0.10) Thyroid Stimulating Hormone (TSH) 1.556 uIU/mL (0.358-3.74) Glucose (Fingerstick) 114 mg/dL (70-99) Test 01/22/19 05:38 01/22/19 05:40 01/22/19 09:15 Glucose (Fingerstick) 149 mg/dL (70-99) Sodium Level 125 mmol/L (136-145) Potassium Level 4.0 mmol/L (3.5-5.1) Chloride Level 94 mmol/L (98-107) Carbon Dioxide Level 18 mmol/L (21-32) Anion Gap 13 (6-14) Blood Urea Nitrogen 15 mg/dL (8-26) Creatinine 1.3 mg/dL (0.7-1.3) Estimated GFR (Cockcroft-Gault) 54.0 BUN/Creatinine Ratio 12 (6-20) Glucose Level 143 mg/dL (70-99) Calcium Level 7.1 mg/dL (8.5-10.1) Total Bilirubin 1.1 mg/dL (0.2-1.0) Aspartate Amino Transf (AST/SGOT) 198 U/L (15-37) Alanine Aminotransferase (ALT/SGPT) 112 U/L (16-63) Alkaline Phosphatase 125 U/L (46-116) Troponin I Quantitative 7.800 ng/mL (0.000-0.055) Total Protein 5.9 g/dL (6.4-8.2) Albumin 2.9 g/dL (3.4-5.0) Albumin/Globulin Ratio 1.0 (1.0-1.7) Triglycerides Level 56 mg/dL (0-150) Cholesterol Level 90 mg/dL (0-200) LDL Cholesterol, Calculated 6 mg/dL (0-100) VLDL Cholesterol, Calculated 11 mg/dL (0-40) Non-HDL Cholesterol Calculated 17 mg/dL (0-129) HDL Cholesterol 73 mg/dL (40-60) Cholesterol/HDL Ratio 1.2 O2 Saturation 93 % (92-99) Arterial Blood pH 7.29 (7.35-7.45) Arterial Blood pCO2 at Patient Temp 37 mmHg (35-46) Arterial Blood pO2 at Patient Temp 78 mmHg (65-108) Arterial Blood HCO3 17 mmol/L (21-28) Arterial Blood Base Excess -9 mmol/L (-3-3) FiO2 100 Review of Systems Review of Systems intubated, sedated Assessment and Plan Assessmemt and Plan Problems Medical Problems: (1) Cardiac arrest with ventricular fibrillation Status: Acute (2) COPD (chronic obstructive pulmonary disease) Status: Chronic (3) Hyponatremia Status: Acute (4) Respiratory failure Status: Acute (5) Severe sepsis Status: Acute Comment Review of Relevant I have reviewed the following items devan (where applicable) has been applied. Labs Laboratory Tests Test 01/21/19 20:24 01/21/19 20:40 01/21/19 20:42 01/21/19 20:47 Glucose (Fingerstick) 112 mg/dL (70-99) O2 Saturation 90 % (92-99) Arterial Blood pH 7.00 (7.35-7.45) Arterial Blood pCO2 at Patient Temp 52 mmHg (35-46) Arterial Blood pO2 at Patient Temp 92 mmHg (65-108) Arterial Blood HCO3 13 mmol/L (21-28) Arterial Blood Base Excess -19 mmol/L (-3-3) Oxyhemoglobin 89.3 % Methemoglobin 0.6 % (0.0-1.9) Carbon Monoxide, Quantitative 0.3 % (0.0-1.9) FiO2 100 Bedside Troponin I 0.43 ng/ml (<0.08) Bedside Hemoglobin 13.3 g/dL (14-18) Bedside Hematocrit 39 % (37-52) Bedside Sodium 122 mmol/L (135-145) Bedside Potassium 4.0 mmol/L (3.5-5.0) Bedside Chloride 94 mmol/L (98-110) Bedside Total CO2 17 mmol/L (23-32) Anion Gap 16 mmol/L (6-14) Bedside Blood Urea Nitrogen 9 mg/dL (8-26) Bedside Creatinine 1.2 mg/dL (0.5-1.4) Glucose Level 126 mg/dL (70-99) Bedside Ionized Calcium (Amada) 0.93 mmol/L (1.13-1.32) Test 01/21/19 21:46 01/21/19 23:03 01/21/19 23:20 01/21/19 23:31 O2 Saturation 85 % (92-99) 96 % (92-99) Arterial Blood pH 7.09 (7.35-7.45) 7.22 (7.35-7.45) Arterial Blood pCO2 at Patient Temp 56 mmHg (35-46) 37 mmHg (35-46) Arterial Blood pO2 at Patient Temp 72 mmHg (65-108) 106 mmHg (65-108) Arterial Blood HCO3 17 mmol/L (21-28) 15 mmol/L (21-28) Arterial Blood Base Excess -14 mmol/L (-3-3) -12 mmol/L (-3-3) FiO2 100 100 Arterial Blood pH (Temp corrected) 7.26 Arterial Blood pCO2 (Temp correct) 33 mmHg Arterial Blood pO2 (Temp corrected) 91 mmHg Oxyhemoglobin 95.0 % Methemoglobin 0.3 % (0.0-1.9) Carbon Monoxide, Quantitative 0.5 % (0.0-1.9) White Blood Count 21.0 x10^3/uL (4.0-11.0) Red Blood Count 4.06 x10^6/uL (4.30-5.70) Hemoglobin 12.1 g/dL (13.0-17.5) Hematocrit 36.4 % (39.0-53.0) Mean Corpuscular Volume 90 fL (79-100) Mean Corpuscular Hemoglobin 30 pg (25-35) Mean Corpuscular Hemoglobin Concent 33 g/dL (31-37) Red Cell Distribution Width 17.5 % (11.5-14.5) Platelet Count 157 x10^3/uL (140-400) Neutrophils (%) (Auto) 88 % (31-73) Lymphocytes (%) (Auto) 4 % (24-48) Monocytes (%) (Auto) 7 % (0-9) Eosinophils (%) (Auto) 0 % (0-3) Basophils (%) (Auto) 0 % (0-3) Neutrophils # (Auto) 18.5 x10^3/uL (1.8-7.7) Lymphocytes # (Auto) 0.9 x10^3/uL (1.0-4.8) Monocytes # (Auto) 1.4 x10^3/uL (0.0-1.1) Eosinophils # (Auto) 0.1 x10^3/uL (0.0-0.7) Basophils # (Auto) 0.1 x10^3/uL (0.0-0.2) Segmented Neutrophils % 63 % (35-66) Band Neutrophils % 22 % (0-9) Lymphocytes % 7 % (24-48) Monocytes % 4 % (0-10) Metamyelocytes % 2 % (0-0) Myelocytes % 1 % (0-0) Promyelocytes % 1 % (0-0) Toxic Granulation Slight Platelet Estimate Adequate (ADEQUATE) Anisocytosis Slight Prothrombin Time 35.8 SEC (11.7-14.0) Prothromb Time International Ratio 3.6 (0.8-1.1) Sodium Level 126 mmol/L (136-145) Potassium Level 5.6 mmol/L (3.5-5.1) Chloride Level 92 mmol/L (98-107) Carbon Dioxide Level 20 mmol/L (21-32) Anion Gap 14 (6-14) Blood Urea Nitrogen 12 mg/dL (8-26) Creatinine 1.2 mg/dL (0.7-1.3) Estimated GFR (Cockcroft-Gault) 59.2 BUN/Creatinine Ratio 10 (6-20) Glucose Level 134 mg/dL (70-99) Lactic Acid Level 3.7 mmol/L (0.4-2.0) Calcium Level 7.2 mg/dL (8.5-10.1) Phosphorus Level 6.8 mg/dL (2.6-4.7) Magnesium Level 1.5 mg/dL (1.8-2.4) Total Bilirubin 0.9 mg/dL (0.2-1.0) Aspartate Amino Transf (AST/SGOT) 225 U/L (15-37) Alanine Aminotransferase (ALT/SGPT) 125 U/L (16-63) Alkaline Phosphatase 151 U/L (46-116) Creatine Kinase 733 U/L (39-308) Creatine Kinase MB (Mass) 28.2 ng/mL (0.0-3.6) Creatine Kinase MB Relative Index 3.8 % (0-4) Troponin I Quantitative 4.112 ng/mL (0.000-0.055) C-Reactive Protein, Quantitative 5.8 mg/L (0-3.3) EQ-Wob-W-Type Natriuretic Peptide 3826 pg/mL (0-124) Total Protein 6.1 g/dL (6.4-8.2) Albumin 3.1 g/dL (3.4-5.0) Albumin/Globulin Ratio 1.0 (1.0-1.7) Lipase 86 U/L (73-393) Procalcitonin 0.16 ng/mL (0.00-0.10) Thyroid Stimulating Hormone (TSH) 1.556 uIU/mL (0.358-3.74) Glucose (Fingerstick) 114 mg/dL (70-99) Test 01/22/19 05:38 01/22/19 05:40 01/22/19 09:15 Glucose (Fingerstick) 149 mg/dL (70-99) Sodium Level 125 mmol/L (136-145) Potassium Level 4.0 mmol/L (3.5-5.1) Chloride Level 94 mmol/L (98-107) Carbon Dioxide Level 18 mmol/L (21-32) Anion Gap 13 (6-14) Blood Urea Nitrogen 15 mg/dL (8-26) Creatinine 1.3 mg/dL (0.7-1.3) Estimated GFR (Cockcroft-Gault) 54.0 BUN/Creatinine Ratio 12 (6-20) Glucose Level 143 mg/dL (70-99) Calcium Level 7.1 mg/dL (8.5-10.1) Total Bilirubin 1.1 mg/dL (0.2-1.0) Aspartate Amino Transf (AST/SGOT) 198 U/L (15-37) Alanine Aminotransferase (ALT/SGPT) 112 U/L (16-63) Alkaline Phosphatase 125 U/L (46-116) Troponin I Quantitative 7.800 ng/mL (0.000-0.055) Total Protein 5.9 g/dL (6.4-8.2) Albumin 2.9 g/dL (3.4-5.0) Albumin/Globulin Ratio 1.0 (1.0-1.7) Triglycerides Level 56 mg/dL (0-150) Cholesterol Level 90 mg/dL (0-200) LDL Cholesterol, Calculated 6 mg/dL (0-100) VLDL Cholesterol, Calculated 11 mg/dL (0-40) Non-HDL Cholesterol Calculated 17 mg/dL (0-129) HDL Cholesterol 73 mg/dL (40-60) Cholesterol/HDL Ratio 1.2 O2 Saturation 93 % (92-99) Arterial Blood pH 7.29 (7.35-7.45) Arterial Blood pCO2 at Patient Temp 37 mmHg (35-46) Arterial Blood pO2 at Patient Temp 78 mmHg (65-108) Arterial Blood HCO3 17 mmol/L (21-28) Arterial Blood Base Excess -9 mmol/L (-3-3) FiO2 100 Laboratory Tests Test 01/21/19 20:24 01/21/19 20:40 01/21/19 20:42 01/21/19 20:47 Glucose (Fingerstick) 112 mg/dL (70-99) O2 Saturation 90 % (92-99) Arterial Blood pH 7.00 (7.35-7.45) Arterial Blood pCO2 at Patient Temp 52 mmHg (35-46) Arterial Blood pO2 at Patient Temp 92 mmHg (65-108) Arterial Blood HCO3 13 mmol/L (21-28) Arterial Blood Base Excess -19 mmol/L (-3-3) Oxyhemoglobin 89.3 % Methemoglobin 0.6 % (0.0-1.9) Carbon Monoxide, Quantitative 0.3 % (0.0-1.9) FiO2 100 Bedside Troponin I 0.43 ng/ml (<0.08) Bedside Hemoglobin 13.3 g/dL (14-18) Bedside Hematocrit 39 % (37-52) Bedside Sodium 122 mmol/L (135-145) Bedside Potassium 4.0 mmol/L (3.5-5.0) Bedside Chloride 94 mmol/L (98-110) Bedside Total CO2 17 mmol/L (23-32) Anion Gap 16 mmol/L (6-14) Bedside Blood Urea Nitrogen 9 mg/dL (8-26) Bedside Creatinine 1.2 mg/dL (0.5-1.4) Glucose Level 126 mg/dL (70-99) Bedside Ionized Calcium (Amada) 0.93 mmol/L (1.13-1.32) Test 01/21/19 21:46 01/21/19 23:03 01/21/19 23:20 01/21/19 23:31 O2 Saturation 85 % (92-99) 96 % (92-99) Arterial Blood pH 7.09 (7.35-7.45) 7.22 (7.35-7.45) Arterial Blood pCO2 at Patient Temp 56 mmHg (35-46) 37 mmHg (35-46) Arterial Blood pO2 at Patient Temp 72 mmHg (65-108) 106 mmHg (65-108) Arterial Blood HCO3 17 mmol/L (21-28) 15 mmol/L (21-28) Arterial Blood Base Excess -14 mmol/L (-3-3) -12 mmol/L (-3-3) FiO2 100 100 Arterial Blood pH (Temp corrected) 7.26 Arterial Blood pCO2 (Temp correct) 33 mmHg Arterial Blood pO2 (Temp corrected) 91 mmHg Oxyhemoglobin 95.0 % Methemoglobin 0.3 % (0.0-1.9) Carbon Monoxide, Quantitative 0.5 % (0.0-1.9) White Blood Count 21.0 x10^3/uL (4.0-11.0) Red Blood Count 4.06 x10^6/uL (4.30-5.70) Hemoglobin 12.1 g/dL (13.0-17.5) Hematocrit 36.4 % (39.0-53.0) Mean Corpuscular Volume 90 fL (79-100) Mean Corpuscular Hemoglobin 30 pg (25-35) Mean Corpuscular Hemoglobin Concent 33 g/dL (31-37) Red Cell Distribution Width 17.5 % (11.5-14.5) Platelet Count 157 x10^3/uL (140-400) Neutrophils (%) (Auto) 88 % (31-73) Lymphocytes (%) (Auto) 4 % (24-48) Monocytes (%) (Auto) 7 % (0-9) Eosinophils (%) (Auto) 0 % (0-3) Basophils (%) (Auto) 0 % (0-3) Neutrophils # (Auto) 18.5 x10^3/uL (1.8-7.7) Lymphocytes # (Auto) 0.9 x10^3/uL (1.0-4.8) Monocytes # (Auto) 1.4 x10^3/uL (0.0-1.1) Eosinophils # (Auto) 0.1 x10^3/uL (0.0-0.7) Basophils # (Auto) 0.1 x10^3/uL (0.0-0.2) Segmented Neutrophils % 63 % (35-66) Band Neutrophils % 22 % (0-9) Lymphocytes % 7 % (24-48) Monocytes % 4 % (0-10) Metamyelocytes % 2 % (0-0) Myelocytes % 1 % (0-0) Promyelocytes % 1 % (0-0) Toxic Granulation Slight Platelet Estimate Adequate (ADEQUATE) Anisocytosis Slight Prothrombin Time 35.8 SEC (11.7-14.0) Prothromb Time International Ratio 3.6 (0.8-1.1) Sodium Level 126 mmol/L (136-145) Potassium Level 5.6 mmol/L (3.5-5.1) Chloride Level 92 mmol/L (98-107) Carbon Dioxide Level 20 mmol/L (21-32) Anion Gap 14 (6-14) Blood Urea Nitrogen 12 mg/dL (8-26) Creatinine 1.2 mg/dL (0.7-1.3) Estimated GFR (Cockcroft-Gault) 59.2 BUN/Creatinine Ratio 10 (6-20) Glucose Level 134 mg/dL (70-99) Lactic Acid Level 3.7 mmol/L (0.4-2.0) Calcium Level 7.2 mg/dL (8.5-10.1) Phosphorus Level 6.8 mg/dL (2.6-4.7) Magnesium Level 1.5 mg/dL (1.8-2.4) Total Bilirubin 0.9 mg/dL (0.2-1.0) Aspartate Amino Transf (AST/SGOT) 225 U/L (15-37) Alanine Aminotransferase (ALT/SGPT) 125 U/L (16-63) Alkaline Phosphatase 151 U/L (46-116) Creatine Kinase 733 U/L (39-308) Creatine Kinase MB (Mass) 28.2 ng/mL (0.0-3.6) Creatine Kinase MB Relative Index 3.8 % (0-4) Troponin I Quantitative 4.112 ng/mL (0.000-0.055) C-Reactive Protein, Quantitative 5.8 mg/L (0-3.3) DY-Dlr-T-Type Natriuretic Peptide 3826 pg/mL (0-124) Total Protein 6.1 g/dL (6.4-8.2) Albumin 3.1 g/dL (3.4-5.0) Albumin/Globulin Ratio 1.0 (1.0-1.7) Lipase 86 U/L (73-393) Procalcitonin 0.16 ng/mL (0.00-0.10) Thyroid Stimulating Hormone (TSH) 1.556 uIU/mL (0.358-3.74) Glucose (Fingerstick) 114 mg/dL (70-99) Test 01/22/19 05:38 01/22/19 05:40 01/22/19 09:15 Glucose (Fingerstick) 149 mg/dL (70-99) Sodium Level 125 mmol/L (136-145) Potassium Level 4.0 mmol/L (3.5-5.1) Chloride Level 94 mmol/L (98-107) Carbon Dioxide Level 18 mmol/L (21-32) Anion Gap 13 (6-14) Blood Urea Nitrogen 15 mg/dL (8-26) Creatinine 1.3 mg/dL (0.7-1.3) Estimated GFR (Cockcroft-Gault) 54.0 BUN/Creatinine Ratio 12 (6-20) Glucose Level 143 mg/dL (70-99) Calcium Level 7.1 mg/dL (8.5-10.1) Total Bilirubin 1.1 mg/dL (0.2-1.0) Aspartate Amino Transf (AST/SGOT) 198 U/L (15-37) Alanine Aminotransferase (ALT/SGPT) 112 U/L (16-63) Alkaline Phosphatase 125 U/L (46-116) Troponin I Quantitative 7.800 ng/mL (0.000-0.055) Total Protein 5.9 g/dL (6.4-8.2) Albumin 2.9 g/dL (3.4-5.0) Albumin/Globulin Ratio 1.0 (1.0-1.7) Triglycerides Level 56 mg/dL (0-150) Cholesterol Level 90 mg/dL (0-200) LDL Cholesterol, Calculated 6 mg/dL (0-100) VLDL Cholesterol, Calculated 11 mg/dL (0-40) Non-HDL Cholesterol Calculated 17 mg/dL (0-129) HDL Cholesterol 73 mg/dL (40-60) Cholesterol/HDL Ratio 1.2 O2 Saturation 93 % (92-99) Arterial Blood pH 7.29 (7.35-7.45) Arterial Blood pCO2 at Patient Temp 37 mmHg (35-46) Arterial Blood pO2 at Patient Temp 78 mmHg (65-108) Arterial Blood HCO3 17 mmol/L (21-28) Arterial Blood Base Excess -9 mmol/L (-3-3) FiO2 100 Medications Current Medications Sodium Chloride 1,000 ml @ 1,000 mls/hr 1X ONCE IV Last administered on 01/22/19 00:16; Start 01/21/19 at 21:00; Stop 01/21/19 at 21:59; Status DC Dopamine HCl/ Dextrose 250 ml @ 5.762 mls/ hr 1X ONCE IV Last administered on 01/22/19 00:17; Start 01/21/19 at 21:15; Stop 01/23/19 at 16:38 Epinephrine HCl (EPINEPHrine SYRINGE) 1 mg 1X ONCE IV Last administered on 01/22/19 00:16; Start 01/21/19 at 21:15; Stop 01/21/19 at 21:16; Status DC Epinephrine HCl (EPINEPHrine SYRINGE) 1 mg 1X ONCE IV Last administered on at 00:16; Start 01/21/19 at 21:15; Stop 01/21/19 at 21:16; Status DC Epinephrine HCl (EPINEPHrine SYRINGE) 1 mg 1X ONCE IV Last administered on 01/22/19at 00:16; Start 01/21/19 at 21:15; Stop 01/21/19 at 21:16; Status DC Ondansetron HCl (Zofran) 4 mg PRN Q8HRS PRN IV NAUSEA/VOMITING; Start 01/21/19 at 21:00; Stop 01/22/19 at 20:59 Fentanyl Citrate (Fentanyl 2ml Vial) 25 mcg PRN Q1HR PRN IV SEE COMMENTS; Start 01/21/19 at 21:00 Fentanyl Citrate (Fentanyl 2ml Vial) 50 mcg PRN Q1HR PRN IV SEE COMMENTS Last administered on 01/22/19at 00:24; Start 01/21/19 at 21:00 Chlorhexidine Gluconate (Peridex) 15 ml BID MM Last administered on 01/22/19 00:24; Start 01/21/19 at 21:15 Famotidine (Pepcid Vial) 20 mg BID IVP ; Start 01/21/19 at 21:15; Stop 01/21/19 at 22:49; Status DC Sodium Bicarbonate (Sodium Bicarb Adult 8.4% Syr) 50 meq 1X ONCE IV Last administered on 01/22/19at 00:16; Start 01/21/19 at 21:15; Stop 01/21/19 at 21:16; Status DC Midazolam HCl (Versed) 5 mg 1X ONCE IV ; Start 01/21/19 at 21:30; Stop 01/21/19 at 21:31; Status DC Fentanyl Citrate (Fentanyl 2ml Vial) 100 mcg 1X ONCE IV Last administered on 01/22/19at 00:16; Start 01/21/19 at 21:30; Stop 01/21/19 at 21:31; Status DC Propofol 100 ml @ 1.152 mls/ hr CONT PRN IV SEE I/O RECORD Last administered on 01/22/19at 00:24; Start 01/21/19 at 21:30 Fentanyl Citrate (Fentanyl 2ml Vial) 100 mcg STK-MED ONCE .ROUTE ; Start 01/21/19 at 21:29; Stop 01/21/19 at 21:29; Status DC Vancomycin HCl (Vanco Per Pharmacy) 1 each PRN DAILY PRN MC SEE COMMENTS Last administered on 01/22/19at 01:21; Start 01/21/19 at 22:45; Stop 01/22/19 at 08:15; Status DC Ondansetron HCl (Zofran) 4 mg PRN Q6HRS PRN IV NAUSEA/VOMITING; Start 01/21/19 at 22:45 Famotidine (Pepcid Vial) 20 mg BID IVP ; Start 01/22/19 at 09:00; Stop 01/22/19 at 10:24; Status DC Info ([facility] Electrolyte Protocol) 1 ea DAILY MC ; Start 01/22/19 at 09:00 Heparin Sodium (Porcine) (Heparin Sodium) 5,000 unit Q8HRS SQ ; Start 01/22/19 at 06:00 Sodium Chloride (Normal Saline Flush) 3 ml QSHIFT PRN IV AFTER MEDS AND BLOOD DRAWS; Start 01/21/19 at 22:45 Vancomycin HCl 2 gm/Sodium Chloride 500 ml @ 250 mls/hr 1X ONCE IV Last admi nistered on 01/22/19at 00:59; Start 01/21/19 at 23:00; Stop 01/22/19 at 00:59; Status DC Levofloxacin/ Dextrose 100 ml @ 100 mls/hr 1X ONCE IV Last administered on 01/22/19at 00:59; Start 01/21/19 at 23:00; Stop 01/21/19 at 23:59; Status DC Linezolid/Dextrose 300 ml @ 300 mls/hr Q12HR IV ; Start 01/22/19 at 09:00; Status UNV Clindamycin Phosphate 50 ml @ 100 mls/hr Q8HRS IV Last administered on 01/22/19at 05:32; Start 01/22/19 at 06:00; Stop 01/22/19 at 08:15; Status DC Sodium Chloride 1,000 ml @ 1,000 mls/hr 1X ONCE IV Last administered on 01/22/19at 00:23; Start 01/22/19 at 00:15; Stop 01/22/19 at 01:14; Status DC Sodium Chloride 1,000 ml @ 125 mls/hr 1X ONCE IV Last administered on 01/22/19at 00:22; Start 01/22/19 at 00:15; Stop 01/22/19 at 08:14; Status DC Midazolam HCl 100 ml @ 5 mls/hr CONT PRN IV SEE I/O RECORD Last administered on 01/22/19at 00:59; Start 01/22/19 at 00:30 Magnesium Sulfate/ Dextrose 100 ml @ 100 mls/hr 1X ONCE IV Last administered on 01/22/19at 00:59; Start 01/22/19 at 01:00; Stop 01/22/19 at 01:59; Status DC Buspirone HCl (Buspar) 30 mg Q8H NG Last administered on 01/22/19at 01:12; Start 01/22/19 at 01:00; Stop 01/23/19 at 17:01 Acetaminophen (Tylenol) 650 mg Q4HRS NG Last administered on 01/22/19at 05:32; Start 01/22/19 at 00:30 Artificial Tears (Artificial Tears) 1 drop Q6HRS OU Last administered on 01/22/19at 05:32; Start 01/22/19 at 06:00 Artificial Tears (Artificial Tears) 1 drop PRN Q15MIN PRN OU DRY EYE; Start 01/22/19 at 00:30 Pantoprazole Sodium (PROTONIX VIAL for IV PUSH) 40 mg DAILY IVP ; Start 01/22/19 at 09:00 Fentanyl Citrate 30 ml @ 0 mls/hr CONT PRN IV PER PROTOCOL. Last administered on 01/22/19at 10:09; Start 01/22/19 at 01:00 Vecuronium [place] (Norcuron Bolus) 8 mg PRN Q1HR PRN IV SHIVERING; Start at 00:30 Aspirin (Aspirin Rectal Supp) 300 mg 1X ONCE OR Last administered on 01/22/19at 00:59; Start 01/22/19 at 01:00; Stop 01/22/19 at 01:01; Status DC Vancomycin HCl 1 gm/Sodium Chloride 250 ml @ 250 mls/hr Q12H IV ; Start 01/22/19 at 13:00; Stop 01/22/19 at 08:15; Status DC Vancomycin HCl (Vancomycin Trough Level) 1 each 1X ONCE MC ; Start 01/23/19 at 12:30; Stop 01/23/19 at 12:31; Status Cancel Meropenem 500 mg/ Sodium Chloride 50 ml @ 100 mls/hr Q8HRS IV ; Start 01/22/19 at 14:00 Acetaminophen (Tylenol) 650 mg PRN Q6HRS PRN PEG MILD PAIN / TEMP; Start 01/22/19 at 09:45 Magnesium Sulfate 50 ml @ 25 mls/hr 1X ONCE IV ; Start 01/22/19 at 11:00; Stop 01/22/19 at 12:59 Active Scripts Active Reported Fish Oil 1,000 Mg Capsule ([place]-3 Fatty Acids/Fish Oil) 1 Each Capsule 1 Each PO DAILY Clopidogrel (Clopidogrel Bisulfate) 75 Mg Tablet 1 Tab PO DAILY Aspirin 81 Mg Tab.chew 1 Tab PO DAILY Warfarin Sodium 2.5 Mg Tablet 2.5 Mg PO DAILY Warfarin Sodium 5 Mg Tablet 5 Mg PO DAILY Spironolactone 25 Mg Tablet 1 Tab PO DAILY Metoprolol Tartrate 100 Mg Tablet 1.5 Tab PO DAILY Lipitor (Atorvastatin Calcium) 80 Mg Tablet 1 Tab PO DAILY Protonix (Pantoprazole Sodium) 20 Mg Tablet.dr 2 Tab PO DAILY Mag-Oxide (Magnesium Oxide) 400 Mg Tablet 1 Tab PO DAILY Multivitamins (Multivitamin) 1 Each Tablet 1 Tab PO DAILY Albuterol Sulfate Conc Neb Soln (Albuterol Sulfate) 2.5 Mg/0.5 Ml Vial.neb 1 Vial NEB Q6HRS Zyrtec (Cetirizine Hcl) 10 Mg Tablet 1 Tab PO DAILY Advair 100-50 Diskus (Fluticasone/Salmeterol) 1 Each Disk.w.dev 1 Puff IH BID NITROGLYCERIN SubLingual (Nitroglycerin) 0.4 Mg Tab.subl 0.4 Mg SL PRN Q5MIN PRN Vitals/I & O Vital Sign - Last 24 Hours 01/21/19 01/21/19 01/21/19 01/21/19 19:58 20:00 20:35 20:45 Temp 97.6 97.6 Pulse 84 118 121 Resp 16 B/P (MAP) 59/23 (35) 183/90 (121) Pulse Ox 95 93 O2 Delivery Ventilator Ventilator Ventilator Ventilator O2 Flow Rate 15.0 01/21/19 01/21/19 01/21/19 01/21/19 20:55 21:00 21:10 21:15 Pulse 93 92 73 80 B/P (MAP) 91/51 (64) 93/51 (65) 87/70 (76) 86/53 (64) Pulse Ox 93 93 100 O2 Delivery Ventilator Ventilator Ventilator Ventilator 01/21/19 01/21/19 01/21/19 01/21/19 21:20 21:25 21:30 21:35 Pulse 63 77 77 76 B/P (MAP) 94/67 (76) 92/60 (71) 91/54 (66) 87/55 (66) Pulse Ox 98 93 100 97 O2 Delivery Ventilator Ventilator Ventilator Ventilator 01/21/19 01/21/19 01/21/19 01/21/19 21:40 21:45 21:50 21:55 Pulse 76 69 78 70 B/P (MAP) 95/50 (65) 94/55 (68) 73/52 (59) 96/53 (67) Pulse Ox 95 94 92 O2 Delivery Ventilator Ventilator Ventilator Ventilator 01/21/19 01/21/19 01/21/19 01/21/19 22:00 22:05 22:10 22:15 Pulse 73 74 79 75 B/P (MAP) 93/50 (64) 87/54 (65) 94/53 (67) 97/55 (69) Pulse Ox 95 O2 Delivery Ventilator Ventilator Ventilator Ventilator 01/21/19 01/21/19 01/21/19 01/21/19 22:20 22:25 22:30 23:15 Pulse 75 76 80 B/P (MAP) 99/55 (70) 101/57 (72) 80/48 (59) O2 Delivery Ventilator Ventilator Ventilator Mechanical Ventilator 01/21/19 01/21/19 01/21/19 01/22/19 23:15 23:15 23:31 00:00 Temp 97.5 96.2 Pulse 74 Resp 22 B/P (MAP) 80/61 (67) O2 Delivery Ventilator Ventilator 01/22/19 01/22/19 01/22/19 01/22/19 00:00 00:16 00:24 00:26 Temp Pulse 69 Resp 24 22 30 30 B/P (MAP) 92/50 (64) Pulse Ox 92 O2 Delivery Ventilator Ventilator Ventilator Ventilator O2 Flow Rate 15.0 01/22/19 01/22/19 01/22/19 01/22/19 00:59 01:00 01:00 01:28 Temp 94.3 Pulse 62 Resp 22 24 24 B/P (MAP) 85/51 (62) Pulse Ox 100 95 O2 Delivery Ventilator Ventilator Ventilator 01/22/19 01/22/19 01/22/19 01/22/19 02:00 02:00 02:05 02:20 Temp 92.8 91.4 Pulse 59 Resp 24 24 B/P (MAP) 105/49 (67) Pulse Ox 93 93 O2 Delivery Ventilator Ventilator 01/22/19 01/22/19 01/22/19 01/22/19 03:00 04:00 04:00 04:00 Temp 88.7 Pulse 59 59 Resp 24 24 B/P (MAP) 96/56 (69) 116/74 (88) Pulse Ox 95 O2 Delivery Ventilator Ventilator Mechanical Ventilator 01/22/19 01/22/19 01/22/19 01/22/19 04:30 05:00 05:00 06:00 Temp 90.6 Pulse 60 59 Resp 24 24 B/P (MAP) 125/69 (87) 98/56 (70) Pulse Ox 100 100 O2 Delivery Ventilator Ventilator Ventilator 01/22/19 01/22/19 01/22/19 01/22/19 06:00 07:00 07:30 08:00 Temp 92.0 93.4 94.0 B/P (MAP) Pulse Ox 100 O2 Delivery Ventilator 01/22/19 01/22/19 01/22/19 01/22/19 08:00 08:00 09:00 10:00 Temp 91.6 92.2 B/P (MAP) O2 Delivery Mechanical Ventilator 01/22/19 10:09 Pulse Ox 100 O2 Flow Rate 15.0 Intake and Output 01/21/19 01/21/19 01/22/19 15:00 23:00 07:00 Intake Total 2000 ml 2694.3 ml Output Total 150 ml 435 ml Balance 1850 ml 2259.3 ml YUNIEL BOWER MD Jan 22, 2019 11:44
[2019-01-22] MEDS ORDERED: IV NORMAL SALINE 50 ML BAG IV SCH (11:45)
[2019-01-22] MEDS: CHLORHEXIDINE 0.12% 15 ML MOUTHWASH. MM SCH ×2 (11:53→22:45)
[2019-01-22] MEDS ORDERED: IV NORMAL SALINE 1000ML BAG 1,000 ML IV SCH (12:00)
--- NOTE | 2019-01-22 12:29 | CONS ---
DATE OF CONSULTATION: 01/22/2019 REQUESTING PHYSICIAN: Dr. Lee. REASON FOR CONSULTATION: Possible aspiration. HISTORY OF PRESENT ILLNESS: This is a 73-year-old gentleman with history of coronary artery disease, who was suddenly collapsed at home, witnessed by his . EMS was called. The patient was noted to be in V-tach. ACLS protocol was utilized and the patient was defibrillated x 2, epinephrine was given and intubated. The patient was stabilized. The patient was seen in the ER and then was admitted to the ICU. The patient had a white count of 21,000. Chest x-ray showed bilateral pulmonary infiltrate. The patient is undergoing hypothermia protocol. Blood pressure has been stable. LFTs have been elevated. Slight troponin leak has been noted. The patient is currently in ICU, orally intubated on a ventilator. PAST MEDICAL HISTORY: Positive for coronary artery disease with coronary artery bypass grafting done in the past, pulmonary hypertension, hyperlipidemia, atrial fibrillation. The patient also has had appendicectomy, rotator cuff surgery and coronary artery bypass grafting. SOCIAL HISTORY: Negative for smoking. He did quit about 2-3 years ago. 2-3 beers a day. No drug use. Lives with the . ALLERGIES: Listed as allergic to PENICILLIN, although according to his , he had nausea and vomiting when he was young. REVIEW OF SYSTEMS: Unable to obtain other than what I mentioned in the HPI. There is no nausea, vomiting, diarrhea noted and there is no fever noted. This was done through the patient's nurse and patient's family. CURRENT MEDICATIONS: The patient is on clindamycin and vancomycin and 1 dose of Levaquin was given. PHYSICAL EXAMINATION: GENERAL: Sedated, orally intubated gentleman, not in any distress. VITAL SIGNS: Temperature 92.0 with hypothermia protocol. The patient's respiratory rate is 24, blood pressure 98/56. HEENT: Both pupils are round and reacting. No conjunctival lesion, no oral lesion. Not much mouth can be visualized due to orally intubated. NECK: Supple, no JVP, no lymphadenopathy. LUNGS: Clear anteriorly. HEART: S1, S2 regular. No gallop or murmur. ABDOMEN: Soft, nontender, no organomegaly. EXTREMITIES: No edema or cyanosis. The patient does have bruising all over the place. The patient is currently not moving any extremities as the patient is sedated on a ventilator. LABORATORY DATA: White count is 21,000, hemoglobin 12.1, platelets are 157,000. BUN and creatinine are normal. LFT showed AST of 225, ALT of 125. Lactic acid was 3.7. Troponin 4.1. BNP 3826. Chest x-ray showed bilateral pulmonary infiltrate. CT of the head was unremarkable for any acute changes. IMPRESSION: 1. Ventricular fibrillation cardiac arrest. 2. Respiratory failure. 3. Leukocytosis, likely reactive. 4. Suspected aspiration. 5. Chronic obstructive pulmonary disease. 6. Lactic acidosis. 7. Coronary artery disease. 8. Elevated troponin. RECOMMENDATIONS: Recommend discontinue vancomycin, discontinue clindamycin, would not redose levofloxacin, initiate meropenem, supportive care. We will check the cultures, do not anticipate long-term antibiotics. We will continue to follow. Discussed with RN. Discussed with the patient's son as well as discussed with the patient's at the bedside. Thank you very much Dr. Lee for giving me opportunity to participate in this patient's care. MICHAEL BONILLA MD DR: SAYDA/león JOB#: [id number] / [id number]
[2019-01-22] MEDS ORDERED: VANCOMYCIN 1 GM in IV NORMAL SALINE 250ML 250 ML IV SCH (13:00)
--- NOTE | 2019-01-22 13:20 | PDOC ---
PULMONARY PROGRESS NOTES Vitals Vital Signs Date Time Temp Pulse Resp B/P (MAP) Pulse Ox O2 Delivery O2 Flow Rate FiO2 01/22/19 11:53 100 15.0 01/22/19 11:30 Ventilator 01/22/19 10:00 92.2 01/22/19 06:00 59 24 Labs Laboratory Tests Test 01/21/19 20:24 01/21/19 20:40 01/21/19 20:42 01/21/19 20:47 Glucose (Fingerstick) 112 mg/dL (70-99) O2 Saturation 90 % (92-99) Arterial Blood pH 7.00 (7.35-7.45) Arterial Blood pCO2 at Patient Temp 52 mmHg (35-46) Arterial Blood pO2 at Patient Temp 92 mmHg (65-108) Arterial Blood HCO3 13 mmol/L (21-28) Arterial Blood Base Excess -19 mmol/L (-3-3) Oxyhemoglobin 89.3 % Methemoglobin 0.6 % (0.0-1.9) Carbon Monoxide, Quantitative 0.3 % (0.0-1.9) FiO2 100 Bedside Troponin I 0.43 ng/ml (<0.08) Bedside Hemoglobin 13.3 g/dL (14-18) Bedside Hematocrit 39 % (37-52) Bedside Sodium 122 mmol/L (135-145) Bedside Potassium 4.0 mmol/L (3.5-5.0) Bedside Chloride 94 mmol/L (98-110) Bedside Total CO2 17 mmol/L (23-32) Anion Gap 16 mmol/L (6-14) Bedside Blood Urea Nitrogen 9 mg/dL (8-26) Bedside Creatinine 1.2 mg/dL (0.5-1.4) Glucose Level 126 mg/dL (70-99) Bedside Ionized Calcium (Amada) 0.93 mmol/L (1.13-1.32) Test 01/21/19 21:46 01/21/19 23:03 01/21/19 23:20 01/21/19 23:31 O2 Saturation 85 % (92-99) 96 % (92-99) Arterial Blood pH 7.09 (7.35-7.45) 7.22 (7.35-7.45) Arterial Blood pCO2 at Patient Temp 56 mmHg (35-46) 37 mmHg (35-46) Arterial Blood pO2 at Patient Temp 72 mmHg (65-108) 106 mmHg (65-108) Arterial Blood HCO3 17 mmol/L (21-28) 15 mmol/L (21-28) Arterial Blood Base Excess -14 mmol/L (-3-3) -12 mmol/L (-3-3) FiO2 100 100 Arterial Blood pH (Temp corrected) 7.26 Arterial Blood pCO2 (Temp correct) 33 mmHg Arterial Blood pO2 (Temp corrected) 91 mmHg Oxyhemoglobin 95.0 % Methemoglobin 0.3 % (0.0-1.9) Carbon Monoxide, Quantitative 0.5 % (0.0-1.9) White Blood Count 21.0 x10^3/uL (4.0-11.0) Red Blood Count 4.06 x10^6/uL (4.30-5.70) Hemoglobin 12.1 g/dL (13.0-17.5) Hematocrit 36.4 % (39.0-53.0) Mean Corpuscular Volume 90 fL (79-100) Mean Corpuscular Hemoglobin 30 pg (25-35) Mean Corpuscular Hemoglobin Concent 33 g/dL (31-37) Red Cell Distribution Width 17.5 % (11.5-14.5) Platelet Count 157 x10^3/uL (140-400) Neutrophils (%) (Auto) 88 % (31-73) Lymphocytes (%) (Auto) 4 % (24-48) Monocytes (%) (Auto) 7 % (0-9) Eosinophils (%) (Auto) 0 % (0-3) Basophils (%) (Auto) 0 % (0-3) Neutrophils # (Auto) 18.5 x10^3/uL (1.8-7.7) Lymphocytes # (Auto) 0.9 x10^3/uL (1.0-4.8) Monocytes # (Auto) 1.4 x10^3/uL (0.0-1.1) Eosinophils # (Auto) 0.1 x10^3/uL (0.0-0.7) Basophils # (Auto) 0.1 x10^3/uL (0.0-0.2) Segmented Neutrophils % 63 % (35-66) Band Neutrophils % 22 % (0-9) Lymphocytes % 7 % (24-48) Monocytes % 4 % (0-10) Metamyelocytes % 2 % (0-0) Myelocytes % 1 % (0-0) Promyelocytes % 1 % (0-0) Toxic Granulation Slight Platelet Estimate Adequate (ADEQUATE) Anisocytosis Slight Prothrombin Time 35.8 SEC (11.7-14.0) Prothromb Time International Ratio 3.6 (0.8-1.1) Sodium Level 126 mmol/L (136-145) Potassium Level 5.6 mmol/L (3.5-5.1) Chloride Level 92 mmol/L (98-107) Carbon Dioxide Level 20 mmol/L (21-32) Anion Gap 14 (6-14) Blood Urea Nitrogen 12 mg/dL (8-26) Creatinine 1.2 mg/dL (0.7-1.3) Estimated GFR (Cockcroft-Gault) 59.2 BUN/Creatinine Ratio 10 (6-20) Glucose Level 134 mg/dL (70-99) Lactic Acid Level 3.7 mmol/L (0.4-2.0) Calcium Level 7.2 mg/dL (8.5-10.1) Phosphorus Level 6.8 mg/dL (2.6-4.7) Magnesium Level 1.5 mg/dL (1.8-2.4) Total Bilirubin 0.9 mg/dL (0.2-1.0) Aspartate Amino Transf (AST/SGOT) 225 U/L (15-37) Alanine Aminotransferase (ALT/SGPT) 125 U/L (16-63) Alkaline Phosphatase 151 U/L (46-116) Creatine Kinase 733 U/L (39-308) Creatine Kinase MB (Mass) 28.2 ng/mL (0.0-3.6) Creatine Kinase MB Relative Index 3.8 % (0-4) Troponin I Quantitative 4.112 ng/mL (0.000-0.055) C-Reactive Protein, Quantitative 5.8 mg/L (0-3.3) DK-Uns-X-Type Natriuretic Peptide 3826 pg/mL (0-124) Total Protein 6.1 g/dL (6.4-8.2) Albumin 3.1 g/dL (3.4-5.0) Albumin/Globulin Ratio 1.0 (1.0-1.7) Lipase 86 U/L (73-393) Procalcitonin 0.16 ng/mL (0.00-0.10) Thyroid Stimulating Hormone (TSH) 1.556 uIU/mL (0.358-3.74) Glucose (Fingerstick) 114 mg/dL (70-99) Test 01/22/19 05:38 01/22/19 05:40 01/22/19 09:15 Glucose (Fingerstick) 149 mg/dL (70-99) Sodium Level 125 mmol/L (136-145) Potassium Level 4.0 mmol/L (3.5-5.1) Chloride Level 94 mmol/L (98-107) Carbon Dioxide Level 18 mmol/L (21-32) Anion Gap 13 (6-14) Blood Urea Nitrogen 15 mg/dL (8-26) Creatinine 1.3 mg/dL (0.7-1.3) Estimated GFR (Cockcroft-Gault) 54.0 BUN/Creatinine Ratio 12 (6-20) Glucose Level 143 mg/dL (70-99) Calcium Level 7.1 mg/dL (8.5-10.1) Total Bilirubin 1.1 mg/dL (0.2-1.0) Aspartate Amino Transf (AST/SGOT) 198 U/L (15-37) Alanine Aminotransferase (ALT/SGPT) 112 U/L (16-63) Alkaline Phosphatase 125 U/L (46-116) Troponin I Quantitative 7.800 ng/mL (0.000-0.055) Total Protein 5.9 g/dL (6.4-8.2) Albumin 2.9 g/dL (3.4-5.0) Albumin/Globulin Ratio 1.0 (1.0-1.7) Triglycerides Level 56 mg/dL (0-150) Cholesterol Level 90 mg/dL (0-200) LDL Cholesterol, Calculated 6 mg/dL (0-100) VLDL Cholesterol, Calculated 11 mg/dL (0-40) Non-HDL Cholesterol Calculated 17 mg/dL (0-129) HDL Cholesterol 73 mg/dL (40-60) Cholesterol/HDL Ratio 1.2 O2 Saturation 93 % (92-99) Arterial Blood pH 7.29 (7.35-7.45) Arterial Blood pCO2 at Patient Temp 37 mmHg (35-46) Arterial Blood pO2 at Patient Temp 78 mmHg (65-108) Arterial Blood HCO3 17 mmol/L (21-28) Arterial Blood Base Excess -9 mmol/L (-3-3) FiO2 100 Laboratory Tests Test 01/21/19 20:24 01/21/19 20:40 01/21/19 20:42 01/21/19 20:47 Glucose (Fingerstick) 112 mg/dL (70-99) O2 Saturation 90 % (92-99) Arterial Blood pH 7.00 (7.35-7.45) Arterial Blood pCO2 at Patient Temp 52 mmHg (35-46) Arterial Blood pO2 at Patient Temp 92 mmHg (65-108) Arterial Blood HCO3 13 mmol/L (21-28) Arterial Blood Base Excess -19 mmol/L (-3-3) Oxyhemoglobin 89.3 % Methemoglobin 0.6 % (0.0-1.9) Carbon Monoxide, Quantitative 0.3 % (0.0-1.9) FiO2 100 Bedside Troponin I 0.43 ng/ml (<0.08) Bedside Hemoglobin 13.3 g/dL (14-18) Bedside Hematocrit 39 % (37-52) Bedside Sodium 122 mmol/L (135-145) Bedside Potassium 4.0 mmol/L (3.5-5.0) Bedside Chloride 94 mmol/L (98-110) Bedside Total CO2 17 mmol/L (23-32) Anion Gap 16 mmol/L (6-14) Bedside Blood Urea Nitrogen 9 mg/dL (8-26) Bedside Creatinine 1.2 mg/dL (0.5-1.4) Glucose Level 126 mg/dL (70-99) Bedside Ionized Calcium (Amada) 0.93 mmol/L (1.13-1.32) Test 01/21/19 21:46 01/21/19 23:03 01/21/19 23:20 01/21/19 23:31 O2 Saturation 85 % (92-99) 96 % (92-99) Arterial Blood pH 7.09 (7.35-7.45) 7.22 (7.35-7.45) Arterial Blood pCO2 at Patient Temp 56 mmHg (35-46) 37 mmHg (35-46) Arterial Blood pO2 at Patient Temp 72 mmHg (65-108) 106 mmHg (65-108) Arterial Blood HCO3 17 mmol/L (21-28) 15 mmol/L (21-28) Arterial Blood Base Excess -14 mmol/L (-3-3) -12 mmol/L (-3-3) FiO2 100 100 Arterial Blood pH (Temp corrected) 7.26 Arterial Blood pCO2 (Temp correct) 33 mmHg Arterial Blood pO2 (Temp corrected) 91 mmHg Oxyhemoglobin 95.0 % Methemoglobin 0.3 % (0.0-1.9) Carbon Monoxide, Quantitative 0.5 % (0.0-1.9) White Blood Count 21.0 x10^3/uL (4.0-11.0) Red Blood Count 4.06 x10^6/uL (4.30-5.70) Hemoglobin 12.1 g/dL (13.0-17.5) Hematocrit 36.4 % (39.0-53.0) Mean Corpuscular Volume 90 fL (79-100) Mean Corpuscular Hemoglobin 30 pg (25-35) Mean Corpuscular Hemoglobin Concent 33 g/dL (31-37) Red Cell Distribution Width 17.5 % (11.5-14.5) Platelet Count 157 x10^3/uL (140-400) Neutrophils (%) (Auto) 88 % (31-73) Lymphocytes (%) (Auto) 4 % (24-48) Monocytes (%) (Auto) 7 % (0-9) Eosinophils (%) (Auto) 0 % (0-3) Basophils (%) (Auto) 0 % (0-3) Neutrophils # (Auto) 18.5 x10^3/uL (1.8-7.7) Lymphocytes # (Auto) 0.9 x10^3/uL (1.0-4.8) Monocytes # (Auto) 1.4 x10^3/uL (0.0-1.1) Eosinophils # (Auto) 0.1 x10^3/uL (0.0-0.7) Basophils # (Auto) 0.1 x10^3/uL (0.0-0.2) Segmented Neutrophils % 63 % (35-66) Band Neutrophils % 22 % (0-9) Lymphocytes % 7 % (24-48) Monocytes % 4 % (0-10) Metamyelocytes % 2 % (0-0) Myelocytes % 1 % (0-0) Promyelocytes % 1 % (0-0) Toxic Granulation Slight Platelet Estimate Adequate (ADEQUATE) Anisocytosis Slight Prothrombin Time 35.8 SEC (11.7-14.0) Prothromb Time International Ratio 3.6 (0.8-1.1) Sodium Level 126 mmol/L (136-145) Potassium Level 5.6 mmol/L (3.5-5.1) Chloride Level 92 mmol/L (98-107) Carbon Dioxide Level 20 mmol/L (21-32) Anion Gap 14 (6-14) Blood Urea Nitrogen 12 mg/dL (8-26) Creatinine 1.2 mg/dL (0.7-1.3) Estimated GFR (Cockcroft-Gault) 59.2 BUN/Creatinine Ratio 10 (6-20) Glucose Level 134 mg/dL (70-99) Lactic Acid Level 3.7 mmol/L (0.4-2.0) Calcium Level 7.2 mg/dL (8.5-10.1) Phosphorus Level 6.8 mg/dL (2.6-4.7) Magnesium Level 1.5 mg/dL (1.8-2.4) Total Bilirubin 0.9 mg/dL (0.2-1.0) Aspartate Amino Transf (AST/SGOT) 225 U/L (15-37) Alanine Aminotransferase (ALT/SGPT) 125 U/L (16-63) Alkaline Phosphatase 151 U/L (46-116) Creatine Kinase 733 U/L (39-308) Creatine Kinase MB (Mass) 28.2 ng/mL (0.0-3.6) Creatine Kinase MB Relative Index 3.8 % (0-4) Troponin I Quantitative 4.112 ng/mL (0.000-0.055) C-Reactive Protein, Quantitative 5.8 mg/L (0-3.3) SV-Idb-J-Type Natriuretic Peptide 3826 pg/mL (0-124) Total Protein 6.1 g/dL (6.4-8.2) Albumin 3.1 g/dL (3.4-5.0) Albumin/Globulin Ratio 1.0 (1.0-1.7) Lipase 86 U/L (73-393) Procalcitonin 0.16 ng/mL (0.00-0.10) Thyroid Stimulating Hormone (TSH) 1.556 uIU/mL (0.358-3.74) Glucose (Fingerstick) 114 mg/dL (70-99) Test 01/22/19 05:38 01/22/19 05:40 01/22/19 09:15 Glucose (Fingerstick) 149 mg/dL (70-99) Sodium Level 125 mmol/L (136-145) Potassium Level 4.0 mmol/L (3.5-5.1) Chloride Level 94 mmol/L (98-107) Carbon Dioxide Level 18 mmol/L (21-32) Anion Gap 13 (6-14) Blood Urea Nitrogen 15 mg/dL (8-26) Creatinine 1.3 mg/dL (0.7-1.3) Estimated GFR (Cockcroft-Gault) 54.0 BUN/Creatinine Ratio 12 (6-20) Glucose Level 143 mg/dL (70-99) Calcium Level 7.1 mg/dL (8.5-10.1) Total Bilirubin 1.1 mg/dL (0.2-1.0) Aspartate Amino Transf (AST/SGOT) 198 U/L (15-37) Alanine Aminotransferase (ALT/SGPT) 112 U/L (16-63) Alkaline Phosphatase 125 U/L (46-116) Troponin I Quantitative 7.800 ng/mL (0.000-0.055) Total Protein 5.9 g/dL (6.4-8.2) Albumin 2.9 g/dL (3.4-5.0) Albumin/Globulin Ratio 1.0 (1.0-1.7) Triglycerides Level 56 mg/dL (0-150) Cholesterol Level 90 mg/dL (0-200) LDL Cholesterol, Calculated 6 mg/dL (0-100) VLDL Cholesterol, Calculated 11 mg/dL (0-40) Non-HDL Cholesterol Calculated 17 mg/dL (0-129) HDL Cholesterol 73 mg/dL (40-60) Cholesterol/HDL Ratio 1.2 O2 Saturation 93 % (92-99) Arterial Blood pH 7.29 (7.35-7.45) Arterial Blood pCO2 at Patient Temp 37 mmHg (35-46) Arterial Blood pO2 at Patient Temp 78 mmHg (65-108) Arterial Blood HCO3 17 mmol/L (21-28) Arterial Blood Base Excess -9 mmol/L (-3-3) FiO2 100 Medications Active Scripts Medications Dose Route/Sig Max Daily Dose Days Date Category Fish Oil 1,000 Mg Capsule ([place]rett-3 Fatty Acids/Fish Oil) 1 Each Capsule 1 Each PO DAILY 01/22/19 Reported Clopidogrel (Clopidogrel Bisulfate) 75 Mg Tablet 1 Tab PO DAILY 01/22/19 Reported Aspirin 81 Mg Tab.chew 1 Tab PO DAILY 01/22/19 Reported Warfarin Sodium 2.5 Mg Tablet 2.5 Mg PO DAILY 01/22/19 Reported Warfarin Sodium 5 Mg Tablet 5 Mg PO DAILY 01/22/19 Reported Spironolactone 25 Mg Tablet 1 Tab PO DAILY 01/22/19 Reported Metoprolol Tartrate 100 Mg Tablet 1.5 Tab PO DAILY 01/22/19 Reported Lipitor (Atorvastatin Calcium) 80 Mg Tablet 1 Tab PO DAILY 01/22/19 Reported Protonix (Pantoprazole Sodium) 20 Mg Tablet.dr 2 Tab PO DAILY 01/22/19 Reported Mag-Oxide (Magnesium Oxide) 400 Mg Tablet 1 Tab PO DAILY 01/22/19 Reported Multivitamins (Multivitamin) 1 Each Tablet 1 Tab PO DAILY 01/22/19 Reported Albuterol Sulfate Conc Neb Soln (Albuterol Sulfate) 2.5 Mg/0.5 Ml Vial.neb 1 Vial NEB Q6HRS 01/22/19 Reported Zyrtec (Cetirizine Hcl) 10 Mg Tablet 1 Tab PO DAILY 01/22/19 Reported Advair 100-50 Diskus (Fluticasone/Salmeterol) 1 Each Disk.w.dev 1 Puff IH BID 01/22/19 Reported NITROGLYCERIN SubLingual (Nitroglycerin) 0.4 Mg Tab.subl 0.4 Mg SL PRN Q5MIN PRN 01/22/19 Reported Impression . full note dictated d/w Dr Bucio will continue support d/w family only time will determine prognosis and outcome OUT OF HOSPITAL CARDIAC ARREST THANKS JOSY WRIGHT MD Jan 22, 2019 13:20
[2019-01-22] MEDS: MEROPENEM 500 MG in IV NORMAL SALINE 50ML 50 ML IV SCH ×2 (14:43→22:48)
--- NOTE | 2019-01-22 16:44 | NUR ---
SS following for discharge planning. SS reviewed pt chart. Pt is from home with spouse and is currently on the vent. SS will continue to follow for discharge planning.
[2019-01-22 18:05] LABS: BASO % 0 % (0-3); EOS % 0 % (0-3); HEMATOCRIT 36.1 % (39.0-53.0); LYMPH # 0.7 x10^3/uL (1.0-4.8); LYMPH % 4 % (24-48); MEAN CORPUSCULAR HEMOGLOBIN 29 pg (25-35); MEAN CORPUSCULAR HGB CONC 33 g/dL (31-37); MEAN CORPUSCULAR VOLUME 89 fL (79-100); MONO % 6 % (0-9); NEUT # 15.3 x10^3/uL (1.8-7.7); NEUT % 90 % (31-73); PLATELET COUNT 116 x10^3/uL (140-400); RED BLOOD COUNT 4.06 x10^6/uL (4.30-5.70); RED CELL DISTRIBUTION WIDTH 17.2 % (11.5-14.5)
[2019-01-22 18:15] LABS: CALCIUM 7.7 mg/dL (8.5-10.1); CREATININE 1.7 mg/dL (0.7-1.3); GFR 39.6; POTASSIUM 5.1 mmol/L (3.5-5.1)
[2019-01-22 18:17] LABS: PROTHROMBIN TIME PATIENT 50.2 SEC (11.7-14.0)
[2019-01-22 18:21] LABS: MAGNESIUM 2.4 mg/dL (1.8-2.4)
[2019-01-22] MEDS ORDERED: PHYTONADIONE 10 MG/ML ORAL SOLUTION. PO ONE ×2 (19:00→20:00)
--- NOTE | 2019-01-22 20:09 | NUR ---
BP up/down. Little success in titrating dopamine lower. IVF slowed TKO as rider for antibiotics., Critical lab called to Dr Ambriz-orders, ? am cath dependent on lad results. [employer] rep in w interrogation complete. Reports "pacer set as VVIR-Hx A-fib. Now extreme bradycardia.Changed to duo chamber mode rate 70. Positive 40 sec run v-tach 8pm,01/21. Call to Dr Stern with his findings. Continue POC
--- NOTE | 2019-01-22 20:18 | NUR ---
Late entry_ SQ hep held per order
--- NOTE | 2019-01-22 20:40 | NUR ---
Pt coded at 2020 and heart beat returned at 2037 after several rounds of Epi and [address] Grover here for code. Talked with the family.
[2019-01-22] MEDS ORDERED: NOREPINEPHRIN 8MG/250ML PREMIX 250 ML IV PRN (20:45)
[2019-01-22 20:48] LABS: BASE EXCESS ABG -12 mmol/L (-3-3); HCO3 ABG 16 mmol/L (21-28); PCO2 ABG 48 mmHg (35-46); PO2 ABG 155 mmHg (65-108); SAT O2 ABG 98 % (92-99)
[2019-01-22 20:55] LABS: CORRECTED PCO2 ABG 41 mmHg; CORRECTED PO2 ABG 134 mmHg
[2019-01-22 21:07] LABS: FIO2 ABG 100
--- NOTE | 2019-01-22 21:27 | EKG ---
[facility] [address] [place] [address] Test Date: 2019-01-22 Test Time: 21:31:19 Pat Name: DILLAN BANDA Department: Room: 106 1 Gender: M Senior Data Architect: : [id number] Requested By: SIVA FINK Order Number: [id number] Reading MD: Cyrus Stern MD Measurements Intervals [place] Rate: 91 P: 0 MN: 184 QRS: -107 QRSD: 110 T: 99 QT: 396 QTc: 489 Interpretive Statements SINUS RHYTHM RBBB CONSIDER ANTERIOR ISCHEMIA CANNOT RULE OUT PACED RHYTHM Electronically Signed On 01-23-2019 9:35:15 CDT by Cyrus Stern MD
[2019-01-22] MEDS ORDERED: SODIUM BICARB ADULT 8.4% 50 MEQ/50 ML DISP.SYRIN. IV ONE (21:45)
--- NOTE | 2019-01-22 21:50 | NUR ---
Dr. Grover called to say he had talked with Dr. Simpson and Dr. Simpson wanted the rate changed to 36 and a bicarb drip started.
[2019-01-22] MEDS ORDERED: SODIUM BICARBONATE VIAL 150 MEQ in IV STERILE WATER 1,000 ML IV SCH (22:00)
[2019-01-23] VITALS (15 sets, daily range): BP systolic 92–190; BP diastolic 59–111
[2019-01-23 00:57] LABS: BASE EXCESS ABG -11 mmol/L (-3-3); CORRECTED PCO2 ABG 30 mmHg; CORRECTED PH ABG 7.31; CORRECTED PO2 ABG 67 mmHg; HCO3 ABG 15 mmol/L (21-28); PCO2 ABG 36 mmHg (35-46); PO2 ABG 85 mmHg (65-108); SAT O2 ABG 94 % (92-99)
[2019-01-23 00:59] LABS: FIO2 ABG 100
[2019-01-23] MEDS: busPIRone 10 MG TABLET. NG SCH ×2 (01:00→09:00)
[2019-01-23] MEDS: ACETAMINOPHEN 650 MG/20.3 ML SOLUTION. NG SCH ×3 (04:00→08:00)
--- NOTE | 2019-01-23 04:11 | CONS ---
DATE OF CONSULTATION: 01/22/2019 ATTENDING PHYSICIAN: Pramod Lee MD REASON FOR CONSULTATION: The patient is seen in pulmonary consultation at the request of Dr. Lee for vent management. HISTORY OF PRESENT ILLNESS: The patient is a 73-year-old male who had [id number]-[id number] cardiopulmonary arrest. He had a syncopal arrest at home. This was felt to be cardiac in nature. He was working in the garden outside, came in to the kitchen and had a syncopal episode. EMS was called. Upon arrival, they found him to be in ventricular fibrillation and ventricular tachycardia without a pulse. ACLS protocol was followed. The patient was shocked on several occasions. He was intubated. He is currently in the intensive care unit, undergoing hypothermic protocol. He is requiring pressors. He is on 100% FiO2. Apparently, the patient was recently seen at [facility] and underwent cardiac catheterization. He was diagnosed with pulmonary hypertension. He was due to follow up at the Pulmonary Hypertension Clinic at [facility]. According to his who was at the bedside, the patient does not wear any oxygen supplementation at home. He quit tobacco 3 years ago. He normally experiences chronic obstructive pulmonary disease exacerbation approximately once a year. I reviewed his chest x-ray, which revealed bilateral pulmonary infiltrates compatible with congestive heart failure. His echocardiogram revealed pulmonary artery pressure of 49 with global hypokinesis. PAST MEDICAL HISTORY: Remarkable for coronary artery disease, status post 3-vessel coronary artery bypass graft in 2002, chronic atrial fibrillation, on anticoagulation, hypertension, chronic obstructive pulmonary disease, osteoarthritis, secondary pulmonary hypertension. PAST SURGICAL HISTORY: As above, coronary artery bypass grafting. 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 Quit tobacco 3 years ago. FAMILY HISTORY: According to his , there is no family history of lung disorders or lung cancer. CURRENT MEDICATIONS: List was reviewed. ALLERGIES: No known drug allergies. REVIEW OF SYSTEMS: Unobtainable secondary to the patient's condition. PHYSICAL EXAMINATION: GENERAL: The patient was undergoing hypothermic protocol. Last temperature was 92.2. He was on assist control ventilation 100% FiO2, heavily sedated. HEENT: Eyes, the sclerae were nonicteric. Pupils were equal. NECK: Jugular venous distention could not be assessed secondary to body habitus. CHEST: Full expansion. LUNGS: Adequate airway flow with some scattered rhonchi. CARDIOVASCULAR: Regular rate and rhythm with S1, S2, no S3. ABDOMEN: Soft, nontender, nondistended. EXTREMITIES: No clubbing or cyanosis. Some edema. NEUROLOGIC: The patient was heavily sedated. LABORATORY DATA: Reviewed. White count was 21,000, hemoglobin 12, hematocrit of 36, and platelet count was noted. Arterial blood gas initially 7.00, PaCO2 of 52, pO2 of 92, repeat was 7.29, PaCO2 of 37, pO2 of 78, and bicarbonate was 17. INR was 3.6. Electrolytes were deranged. Sodium was low. AST and ALT were elevated. Troponin was elevated at 7.0. Procalcitonin was elevated. A chest x-ray revealed bilateral pulmonary infiltrates compatible with congestive heart failure. IMPRESSION: 1. Acute respiratory failure secondary to sva-nv-[id number] cardiopulmonary arrest. 2. Ikd-zx-ltwnnqxb cardiac arrest. 3. Coronary artery disease with previous coronary artery bypass grafting. 4. Secondary pulmonary hypertension. 5. Possible aspiration pneumonia. 6. Rbgbu-lo-pmgkcrm systolic heart failure. 7. Chronic obstructive pulmonary disease. 8. Tobacco dependence, in remission. 9. Status post pacemaker implantation. PLAN: 1. We will continue current support with assist control ventilation, adjust minute ventilation to normalize pH. 2. Follow Cardiology input. 3. Continue pressors. 4. Hypothermic protocol. 5. Interrogate device. 6. Obtain old records from . I do appreciate the privilege in sharing the patient's care. Total cumulative critical care time of 45 minutes. The above was discussed with the family at the bedside and ____. JOSY WRIGHT MD DR: [email or web address] JOB#: [id number] / [id number]
[2019-01-23 04:51] LABS: CALCIUM 7.7 mg/dL (8.5-10.1); GFR 32.8; MAGNESIUM 2.3 mg/dL (1.8-2.4); PHOSPHORUS 5.9 mg/dL (2.6-4.7); POTASSIUM 4.5 mmol/L (3.5-5.1)
[2019-01-23 05:34] LABS: PROTHROMBIN TIME PATIENT 67.5 SEC (11.7-14.0)
[2019-01-23] MEDS ORDERED: SODIUM BICARB ADULT 8.4% 50 MEQ/50 ML DISP.SYRIN. ONE ×2 (06:00→12:00)
[2019-01-23] MEDS ORDERED: EPINEPHrine SYRINGE 1 MG/10 ML SYRINGE ONE ×2 (06:00→12:00)
[2019-01-23] MEDS: HEPARIN for SUB-Q USE 5,000 UNIT/ML VIAL. SQ SCH (06:00)
[2019-01-23] MEDS ORDERED: LIDOCAINE 2% 100 MG/5 ML SYRINGE. IV ONE ×2 (06:00)
[2019-01-23] MEDS ORDERED: LIDOCAINE 2GM/D5W 500ML PREMIX 500 ML IV PRN (06:00)
[2019-01-23] MEDS ORDERED: DOPamine 400MG/250ML PREMIX 400 MG/250 ML BAG IV ONE ×2 (06:00→12:00)
--- NOTE | 2019-01-23 06:00 | NUR ---
Patient coded again at 0527 and again was shocked 3 times for Vtach. Heart rate returned at 0534. Talked with Dr. Child and Lidocaine drip was started and FFP was ordered for INR of 7.9. Pt has blood oozing from his mouth and in his ETT. Family now at bedside. Levophed and Dopamine have been titrated up and down tonight. Rewarming started at 0220 and patients temp is now 93.1. Skin assessed frequently and remains ecchymotic in places. Pt is to go to the cardiac cath tech this am.
--- NOTE | 2019-01-23 06:28 | PDOC ---
PROGRESS NOTES Subjective Subjective cardiac arrest, code blue called, LATE ENTRY, pt seen 01/22 at 9pm he was without spont pulse about 20 min, shocked x1, but was mostly PEA arrest, with pacer trying to fire. Objective Objective Vital Signs Date Time Temp Pulse Resp B/P (MAP) Pulse Ox O2 Delivery O2 Flow Rate FiO2 01/23/19 04:30 74 36 145/92 (109) 100 Ventilator 01/23/19 04:00 91.6 91.6 01/22/19 11:53 15.0 Intake and Output 01/23/19 07:00 Intake Total 1824 ml Output Total 1335 ml Balance 489 ml Intake Oral 0 ml IV Total 1824 ml Output Urine Total 1335 ml Physical Exam Abdomen: Soft Heart: Other (irreg, irreg, faint pulses) General: Other (sedated) Neuro: Other Skin: Other Assessment Assessment Problems Medical Problems: (1) Acute on chronic systolic heart failure Status: Acute (2) Cardiac arrest with ventricular fibrillation Status: Acute (3) COPD (chronic obstructive pulmonary disease) Status: Chronic (4) Hyponatremia Status: Acute (5) Pulmonary hypertension Status: Chronic (6) Respiratory failure Status: Acute (7) Severe sepsis Status: Acute Plan Plan of Care NSTEMI, cardiac arrest, code was run by Dr. Morse for 20 min, then I took over, chest compressions, epi x4, sedsation off, bicarb, then spont pulse returned I called Dr. Stern and discussed, will follow, likely L heart cath in AM. Acidosis on ABG, I called Dr. Simpson, RR on vent changed to 36, bicarb gtt, discussed with family at length, they had many questions, time 40 min, critical care, on 12 Comment Review of Relevant I have reviewed the following items devan (where applicable) has been applied. Labs Laboratory Tests Test 01/21/19 20:24 01/21/19 20:40 01/21/19 20:42 01/21/19 20:47 Glucose (Fingerstick) 112 mg/dL (70-99) O2 Saturation 90 % (92-99) Arterial Blood pH 7.00 (7.35-7.45) Arterial Blood pCO2 at Patient Temp 52 mmHg (35-46) Arterial Blood pO2 at Patient Temp 92 mmHg (65-108) Arterial Blood HCO3 13 mmol/L (21-28) Arterial Blood Base Excess -19 mmol/L (-3-3) Oxyhemoglobin 89.3 % Methemoglobin 0.6 % (0.0-1.9) Carbon Monoxide, Quantitative 0.3 % (0.0-1.9) FiO2 100 Bedside Troponin I 0.43 ng/ml (<0.08) Bedside Hemoglobin 13.3 g/dL (14-18) Bedside Hematocrit 39 % (37-52) Bedside Sodium 122 mmol/L (135-145) Bedside Potassium 4.0 mmol/L (3.5-5.0) Bedside Chloride 94 mmol/L (98-110) Bedside Total CO2 17 mmol/L (23-32) Anion Gap 16 mmol/L (6-14) Bedside Blood Urea Nitrogen 9 mg/dL (8-26) Bedside Creatinine 1.2 mg/dL (0.5-1.4) Glucose Level 126 mg/dL (70-99) Bedside Ionized Calcium (Amada) 0.93 mmol/L (1.13-1.32) Test 01/21/19 21:46 01/21/19 23:03 01/21/19 23:20 01/21/19 23:31 O2 Saturation 85 % (92-99) 96 % (92-99) Arterial Blood pH 7.09 (7.35-7.45) 7.22 (7.35-7.45) Arterial Blood pCO2 at Patient Temp 56 mmHg (35-46) 37 mmHg (35-46) Arterial Blood pO2 at Patient Temp 72 mmHg (65-108) 106 mmHg (65-108) Arterial Blood HCO3 17 mmol/L (21-28) 15 mmol/L (21-28) Arterial Blood Base Excess -14 mmol/L (-3-3) -12 mmol/L (-3-3) FiO2 100 100 Arterial Blood pH (Temp corrected) 7.26 Arterial Blood pCO2 (Temp correct) 33 mmHg Arterial Blood pO2 (Temp corrected) 91 mmHg Oxyhemoglobin 95.0 % Methemoglobin 0.3 % (0.0-1.9) Carbon Monoxide, Quantitative 0.5 % (0.0-1.9) White Blood Count 21.0 x10^3/uL (4.0-11.0) Red Blood Count 4.06 x10^6/uL (4.30-5.70) Hemoglobin 12.1 g/dL (13.0-17.5) Hematocrit 36.4 % (39.0-53.0) Mean Corpuscular Volume 90 fL (79-100) Mean Corpuscular Hemoglobin 30 pg (25-35) Mean Corpuscular Hemoglobin Concent 33 g/dL (31-37) Red Cell Distribution Width 17.5 % (11.5-14.5) Platelet Count 157 x10^3/uL (140-400) Neutrophils (%) (Auto) 88 % (31-73) Lymphocytes (%) (Auto) 4 % (24-48) Monocytes (%) (Auto) 7 % (0-9) Eosinophils (%) (Auto) 0 % (0-3) Basophils (%) (Auto) 0 % (0-3) Neutrophils # (Auto) 18.5 x10^3/uL (1.8-7.7) Lymphocytes # (Auto) 0.9 x10^3/uL (1.0-4.8) Monocytes # (Auto) 1.4 x10^3/uL (0.0-1.1) Eosinophils # (Auto) 0.1 x10^3/uL (0.0-0.7) Basophils # (Auto) 0.1 x10^3/uL (0.0-0.2) Segmented Neutrophils % 63 % (35-66) Band Neutrophils % 22 % (0-9) Lymphocytes % 7 % (24-48) Monocytes % 4 % (0-10) Metamyelocytes % 2 % (0-0) Myelocytes % 1 % (0-0) Promyelocytes % 1 % (0-0) Toxic Granulation Slight Platelet Estimate Adequate (ADEQUATE) Anisocytosis Slight Prothrombin Time 35.8 SEC (11.7-14.0) Prothromb Time International Ratio 3.6 (0.8-1.1) Sodium Level 126 mmol/L (136-145) Potassium Level 5.6 mmol/L (3.5-5.1) Chloride Level 92 mmol/L (98-107) Carbon Dioxide Level 20 mmol/L (21-32) Anion Gap 14 (6-14) Blood Urea Nitrogen 12 mg/dL (8-26) Creatinine 1.2 mg/dL (0.7-1.3) Estimated GFR (Cockcroft-Gault) 59.2 BUN/Creatinine Ratio 10 (6-20) Glucose Level 134 mg/dL (70-99) Lactic Acid Level 3.7 mmol/L (0.4-2.0) Calcium Level 7.2 mg/dL (8.5-10.1) Phosphorus Level 6.8 mg/dL (2.6-4.7) Magnesium Level 1.5 mg/dL (1.8-2.4) Total Bilirubin 0.9 mg/dL (0.2-1.0) Aspartate Amino Transf (AST/SGOT) 225 U/L (15-37) Alanine Aminotransferase (ALT/SGPT) 125 U/L (16-63) Alkaline Phosphatase 151 U/L (46-116) Creatine Kinase 733 U/L (39-308) Creatine Kinase MB (Mass) 28.2 ng/mL (0.0-3.6) Creatine Kinase MB Relative Index 3.8 % (0-4) Troponin I Quantitative 4.112 ng/mL (0.000-0.055) C-Reactive Protein, Quantitative 5.8 mg/L (0-3.3) DK-Tfo-D-Type Natriuretic Peptide 3826 pg/mL (0-124) Total Protein 6.1 g/dL (6.4-8.2) Albumin 3.1 g/dL (3.4-5.0) Albumin/Globulin Ratio 1.0 (1.0-1.7) Lipase 86 U/L (73-393) Procalcitonin 0.16 ng/mL (0.00-0.10) Thyroid Stimulating Hormone (TSH) 1.556 uIU/mL (0.358-3.74) Glucose (Fingerstick) 114 mg/dL (70-99) Test 01/22/19 03:15 01/22/19 05:38 01/22/19 05:40 01/22/19 09:15 Nasal Screen MRSA (PCR) Negative (Negative) Glucose (Fingerstick) 149 mg/dL (70-99) Sodium Level 125 mmol/L (136-145) Potassium Level 4.0 mmol/L (3.5-5.1) Chloride Level 94 mmol/L (98-107) Carbon Dioxide Level 18 mmol/L (21-32) Anion Gap 13 (6-14) Blood Urea Nitrogen 15 mg/dL (8-26) Creatinine 1.3 mg/dL (0.7-1.3) Estimated GFR (Cockcroft-Gault) 54.0 BUN/Creatinine Ratio 12 (6-20) Glucose Level 143 mg/dL (70-99) Calcium Level 7.1 mg/dL (8.5-10.1) Total Bilirubin 1.1 mg/dL (0.2-1.0) Aspartate Amino Transf (AST/SGOT) 198 U/L (15-37) Alanine Aminotransferase (ALT/SGPT) 112 U/L (16-63) Alkaline Phosphatase 125 U/L (46-116) Troponin I Quantitative 7.800 ng/mL (0.000-0.055) Total Protein 5.9 g/dL (6.4-8.2) Albumin 2.9 g/dL (3.4-5.0) Albumin/Globulin Ratio 1.0 (1.0-1.7) Triglycerides Level 56 mg/dL (0-150) Cholesterol Level 90 mg/dL (0-200) LDL Cholesterol, Calculated 6 mg/dL (0-100) VLDL Cholesterol, Calculated 11 mg/dL (0-40) Non-HDL Cholesterol Calculated 17 mg/dL (0-129) HDL Cholesterol 73 mg/dL (40-60) Cholesterol/HDL Ratio 1.2 O2 Saturation 93 % (92-99) Arterial Blood pH 7.29 (7.35-7.45) Arterial Blood pCO2 at Patient Temp 37 mmHg (35-46) Arterial Blood pO2 at Patient Temp 78 mmHg (65-108) Arterial Blood HCO3 17 mmol/L (21-28) Arterial Blood Base Excess -9 mmol/L (-3-3) FiO2 100 Test 01/22/19 18:00 01/22/19 18:04 01/22/19 20:33 01/22/19 20:40 White Blood Count 17.0 x10^3/uL (4.0-11.0) Red Blood Count 4.06 x10^6/uL (4.30-5.70) Hemoglobin 12.0 g/dL (13.0-17.5) Hematocrit 36.1 % (39.0-53.0) Mean Corpuscular Volume 89 fL (79-100) Mean Corpuscular Hemoglobin 29 pg (25-35) Mean Corpuscular Hemoglobin Concent 33 g/dL (31-37) Red Cell Distribution Width 17.2 % (11.5-14.5) Platelet Count 116 x10^3/uL (140-400) Neutrophils (%) (Auto) 90 % (31-73) Lymphocytes (%) (Auto) 4 % (24-48) Monocytes (%) (Auto) 6 % (0-9) Eosinophils (%) (Auto) 0 % (0-3) Basophils (%) (Auto) 0 % (0-3) Neutrophils # (Auto) 15.3 x10^3/uL (1.8-7.7) Lymphocytes # (Auto) 0.7 x10^3/uL (1.0-4.8) Monocytes # (Auto) 1.0 x10^3/uL (0.0-1.1) Eosinophils # (Auto) 0.0 x10^3/uL (0.0-0.7) Basophils # (Auto) 0.0 x10^3/uL (0.0-0.2) Prothrombin Time 50.2 SEC (11.7-14.0) Prothromb Time International Ratio 5.5 (0.8-1.1) Activated Partial Thromboplast Time 55 SEC (24-38) Sodium Level 128 mmol/L (136-145) Potassium Level 5.1 mmol/L (3.5-5.1) Chloride Level 96 mmol/L (98-107) Carbon Dioxide Level 23 mmol/L (21-32) Anion Gap 9 (6-14) Blood Urea Nitrogen 20 mg/dL (8-26) Creatinine 1.7 mg/dL (0.7-1.3) Estimated GFR (Cockcroft-Gault) 39.6 Glucose Level 151 mg/dL (70-99) Calcium Level 7.7 mg/dL (8.5-10.1) Magnesium Level 2.4 mg/dL (1.8-2.4) Alkaline Phosphatase 106 U/L (46-116) Glucose (Fingerstick) 137 mg/dL (70-99) 111 mg/dL (70-99) O2 Saturation 98 % (92-99) Arterial Blood pH 7.15 (7.35-7.45) Arterial Blood pH (Temp corrected) 7.20 Arterial Blood pCO2 at Patient Temp 48 mmHg (35-46) Arterial Blood pCO2 (Temp correct) 41 mmHg Arterial Blood pO2 at Patient Temp 155 mmHg (65-108) Arterial Blood pO2 (Temp corrected) 134 mmHg Arterial Blood HCO3 16 mmol/L (21-28) Arterial Blood Base Excess -12 mmol/L (-3-3) FiO2 100 Test 01/23/19 00:58 01/23/19 01:20 01/23/19 01:32 01/23/19 04:00 O2 Saturation 94 % (92-99) Arterial Blood pH 7.25 (7.35-7.45) Arterial Blood pH (Temp corrected) 7.31 Arterial Blood pCO2 at Patient Temp 36 mmHg (35-46) Arterial Blood pCO2 (Temp correct) 30 mmHg Arterial Blood pO2 at Patient Temp 85 mmHg (65-108) Arterial Blood pO2 (Temp corrected) 67 mmHg Arterial Blood HCO3 15 mmol/L (21-28) Arterial Blood Base Excess -11 mmol/L (-3-3) FiO2 100 Potassium Level 4.6 mmol/L (3.5-5.1) 4.5 mmol/L (3.5-5.1) Glucose (Fingerstick) 152 mg/dL (70-99) Prothrombin Time 67.5 SEC (11.7-14.0) Prothromb Time International Ratio 7.9 (0.8-1.1) Sodium Level 129 mmol/L (136-145) Chloride Level 95 mmol/L (98-107) Carbon Dioxide Level 22 mmol/L (21-32) Anion Gap 12 (6-14) Blood Urea Nitrogen 24 mg/dL (8-26) Creatinine 2.0 mg/dL (0.7-1.3) Estimated GFR (Cockcroft-Gault) 32.8 Glucose Level 143 mg/dL (70-99) Calcium Level 7.7 mg/dL (8.5-10.1) Phosphorus Level 5.9 mg/dL (2.6-4.7) Magnesium Level 2.3 mg/dL (1.8-2.4) Procalcitonin 3.97 ng/mL (0.00-0.10) Laboratory Tests Test 01/22/19 09:15 01/22/19 18:00 01/22/19 18:04 01/22/19 20:33 O2 Saturation 93 % (92-99) Arterial Blood pH 7.29 (7.35-7.45) Arterial Blood pCO2 at Patient Temp 37 mmHg (35-46) Arterial Blood pO2 at Patient Temp 78 mmHg (65-108) Arterial Blood HCO3 17 mmol/L (21-28) Arterial Blood Base Excess -9 mmol/L (-3-3) FiO2 100 White Blood Count 17.0 x10^3/uL (4.0-11.0) Red Blood Count 4.06 x10^6/uL (4.30-5.70) Hemoglobin 12.0 g/dL (13.0-17.5) Hematocrit 36.1 % (39.0-53.0) Mean Corpuscular Volume 89 fL (79-100) Mean Corpuscular Hemoglobin 29 pg (25-35) Mean Corpuscular Hemoglobin Concent 33 g/dL (31-37) Red Cell Distribution Width 17.2 % (11.5-14.5) Platelet Count 116 x10^3/uL (140-400) Neutrophils (%) (Auto) 90 % (31-73) Lymphocytes (%) (Auto) 4 % (24-48) Monocytes (%) (Auto) 6 % (0-9) Eosinophils (%) (Auto) 0 % (0-3) Basophils (%) (Auto) 0 % (0-3) Neutrophils # (Auto) 15.3 x10^3/uL (1.8-7.7) Lymphocytes # (Auto) 0.7 x10^3/uL (1.0-4.8) Monocytes # (Auto) 1.0 x10^3/uL (0.0-1.1) Eosinophils # (Auto) 0.0 x10^3/uL (0.0-0.7) Basophils # (Auto) 0.0 x10^3/uL (0.0-0.2) Prothrombin Time 50.2 SEC (11.7-14.0) Prothromb Time International Ratio 5.5 (0.8-1.1) Activated Partial Thromboplast Time 55 SEC (24-38) Sodium Level 128 mmol/L (136-145) Potassium Level 5.1 mmol/L (3.5-5.1) Chloride Level 96 mmol/L (98-107) Carbon Dioxide Level 23 mmol/L (21-32) Anion Gap 9 (6-14) Blood Urea Nitrogen 20 mg/dL (8-26) Creatinine 1.7 mg/dL (0.7-1.3) Estimated GFR (Cockcroft-Gault) 39.6 Glucose Level 151 mg/dL (70-99) Calcium Level 7.7 mg/dL (8.5-10.1) Magnesium Level 2.4 mg/dL (1.8-2.4) Alkaline Phosphatase 106 U/L (46-116) Glucose (Fingerstick) 137 mg/dL (70-99) 111 mg/dL (70-99) Test 01/22/19 20:40 01/23/19 00:58 01/23/19 01:20 01/23/19 01:32 O2 Saturation 98 % (92-99) 94 % (92-99) Arterial Blood pH 7.15 (7.35-7.45) 7.25 (7.35-7.45) Arterial Blood pH (Temp corrected) 7.20 7.31 Arterial Blood pCO2 at Patient Temp 48 mmHg (35-46) 36 mmHg (35-46) Arterial Blood pCO2 (Temp correct) 41 mmHg 30 mmHg Arterial Blood pO2 at Patient Temp 155 mmHg (65-108) 85 mmHg (65-108) Arterial Blood pO2 (Temp corrected) 134 mmHg 67 mmHg Arterial Blood HCO3 16 mmol/L (21-28) 15 mmol/L (21-28) Arterial Blood Base Excess -12 mmol/L (-3-3) -11 mmol/L (-3-3) FiO2 100 100 Potassium Level 4.6 mmol/L (3.5-5.1) Glucose (Fingerstick) 152 mg/dL (70-99) Test 01/23/19 04:00 Prothrombin Time 67.5 SEC (11.7-14.0) Prothromb Time International Ratio 7.9 (0.8-1.1) Sodium Level 129 mmol/L (136-145) Potassium Level 4.5 mmol/L (3.5-5.1) Chloride Level 95 mmol/L (98-107) Carbon Dioxide Level 22 mmol/L (21-32) Anion Gap 12 (6-14) Blood Urea Nitrogen 24 mg/dL (8-26) Creatinine 2.0 mg/dL (0.7-1.3) Estimated GFR (Cockcroft-Gault) 32.8 Glucose Level 143 mg/dL (70-99) Calcium Level 7.7 mg/dL (8.5-10.1) Phosphorus Level 5.9 mg/dL (2.6-4.7) Magnesium Level 2.3 mg/dL (1.8-2.4) Procalcitonin 3.97 ng/mL (0.00-0.10) Microbiology 01/22/19 Blood Culture - Preliminary, Resulted NO GROWTH AFTER 1 DAY Medications Current Medications Sodium Chloride 1,000 ml @ 1,000 mls/hr 1X ONCE IV Last administered on 01/22/19 00:16; Start 01/21/19 at 21:00; Stop 01/21/19 at 21:59; Status DC Dopamine HCl/ Dextrose 250 ml @ 5.762 mls/ hr 1X ONCE IV Last administered on 01/22/19at 00:17; Start 01/21/19 at 21:15; Stop 01/23/19 at 16:38 Epinephrine HCl (EPINEPHrine SYRINGE) 1 mg 1X ONCE IV Last administered on 01/22/19at 00:16; Start 01/21/19 at 21:15; Stop 01/21/19 at 21:16; Status DC Epinephrine HCl (EPINEPHrine SYRINGE) 1 mg 1X ONCE IV Last administered on 01/22/19at 00:16; Start 01/21/19 at 21:15; Stop 01/21/19 at 21:16; Status DC Epinephrine HCl (EPINEPHrine SYRINGE) 1 mg 1X ONCE IV Last administered on 01/22/19at 00:16; Start 01/21/19 at 21:15; Stop 01/21/19 at 21:16; Status DC Ondansetron HCl (Zofran) 4 mg PRN Q8HRS PRN IV NAUSEA/VOMITING; Start 01/21/19 at 21:00; Stop 01/22/19 at 20:59; Status DC Fentanyl Citrate (Fentanyl 2ml Vial) 25 mcg PRN Q1HR PRN IV SEE COMMENTS; Start 01/21/19 at 21:00 Fentanyl Citrate (Fentanyl 2ml Vial) 50 mcg PRN Q1HR PRN IV SEE COMMENTS Last administered on 01/22/19at 00:24; Start 01/21/19 at 21:00 Chlorhexidine Gluconate (Peridex) 15 ml BID MM Last administered on 01/22/19at 22:48; Start 01/21/19 at 21:15 Famotidine (Pepcid Vial) 20 mg BID IVP ; Start 01/21/19 at 21:15; Stop 01/21/19 at 22:49; Status DC Sodium Bicarbonate (Sodium Bicarb Adult 8.4% Syr) 50 meq 1X ONCE IV Last administered on 01/22/19at 00:16; Start 01/21/19 at 21:15; Stop 01/21/19 at 21:16; Status DC Midazolam HCl (Versed) 5 mg 1X ONCE IV ; Start 01/21/19 at 21:30; Stop 01/21/19 at 21:31; Status DC Fentanyl Citrate (Fentanyl 2ml Vial) 100 mcg 1X ONCE IV Last administered on 01/22/19at 00:16; Start 01/21/19 at 21:30; Stop 01/21/19 at 21:31; Status DC Propofol 100 ml @ 1.152 mls/ hr CONT PRN IV SEE I/O RECORD Last administered on 01/22/19at 00:24; Start 01/21/19 at 21:30 Fentanyl Citrate (Fentanyl 2ml Vial) 100 mcg STK-MED ONCE .ROUTE ; Start 01/21/19 at 21:29; Stop 01/21/19 at 21:29; Status DC Vancomycin HCl (Vanco Per Pharmacy) 1 each PRN DAILY PRN MC SEE COMMENTS Last administered on 01/22/19at 01:21; Start 01/21/19 at 22:45; Stop 01/22/19 at 08:15; Status DC Ondansetron HCl (Zofran) 4 mg PRN Q6HRS PRN IV NAUSEA/VOMITING; Start 01/21/19 at 22:45 Famotidine (Pepcid Vial) 20 mg BID IVP ; Start 01/22/19 at 09:00; Stop 01/22/19 at 10:24; Status DC Info (Icu Electrolyte Protocol) 1 ea DAILY MC ; Start 01/22/19 at 09:00 Heparin Sodium (Porcine) (Heparin Sodium) 5,000 unit Q8HRS SQ ; Start 01/22/19 at 06:00 Sodium Chloride (Normal Saline Flush) 3 ml QSHIFT PRN IV AFTER MEDS AND BLOOD DRAWS; Start 01/21/19 at 22:45 Vancomycin HCl 2 gm/Sodium Chloride 500 ml @ 250 mls/hr 1X ONCE IV Last administered on 01/22/19 00:59; Start 01/21/19 at 23:00; Stop 01/22/19 at 00:59; Status DC Levofloxacin/ Dextrose 100 ml @ 100 mls/hr 1X ONCE IV Last administered on 01/22/19at 00:59; Start 01/21/19 at 23:00; Stop 01/21/19 at 23:59; Status DC Linezolid/Dextrose 300 ml @ 300 mls/hr Q12HR IV ; Start 01/22/19 at 09:00; Status UNV Clindamycin Phosphate 50 ml @ 100 mls/hr Q8HRS IV Last administered on 05:32; Start 01/22/19 at 06:00; Stop 01/22/19 at 08:15; Status DC Sodium Chloride 1,000 ml @ 1,000 mls/hr 1X ONCE IV Last administered on 01/22/19at 00:23; Start 01/22/19 at 00:15; Stop 01/22/19 at 01:14; Status DC Sodium Chloride 1,000 ml @ 125 mls/hr 1X ONCE IV Last administered on 01/22/19at 00:22; Start 01/22/19 at 00:15; Stop 01/22/19 at 08:14; Status DC Midazolam HCl 100 ml @ 5 mls/hr CONT PRN IV SEE I/O RECORD Last administered on 01/22/19 19:24; Start 01/22/19 at 00:30 Magnesium Sulfate/ Dextrose 100 ml @ 100 mls/hr 1X ONCE IV Last administered on 01/22/19at 00:59; Start 01/22/19 at 01:00; Stop 01/22/19 at 01:59; Status DC Buspirone HCl (Buspar) 30 mg Q8H NG Last administered on 01/22/19 01:12; Start 01/22/19 at 01:00; Stop 01/23/19 at 17:01 Acetaminophen (Tylenol) 650 mg Q4HRS NG Last administered on 01/22/19 22:48; Start 01/22/19 at 00:30 Artificial Tears (Artificial Tears) 1 drop Q6HRS OU Last administered on 8/12/19at 18:50; Start 01/22/19 at 06:00 Artificial Tears (Artificial Tears) 1 drop PRN Q15MIN PRN OU DRY EYE; Start 01/22/19 at 00:30 Pantoprazole Sodium (PROTONIX VIAL for IV PUSH) 40 mg DAILY IVP Last administered on 01/22/19at 11:46; Start 01/22/19 at 09:00 Fentanyl Citrate 30 ml @ 0 mls/hr CONT PRN IV PER PROTOCOL. Last administered on 01/22/19at 21:47; Start 01/22/19 at 01:00 Vecuronium [place] (Norcuron Bolus) 8 mg PRN Q1HR PRN IV SHIVERING; Start 01/22/19 at 00:30 Aspirin (Aspirin Rectal Supp) 300 mg 1X ONCE SD Last administered on 01/22/19 00:59; Start 01/22/19 at 01:00; Stop 01/22/19 at 01:01; Status DC Vancomycin HCl 1 gm/Sodium Chloride 250 ml @ 250 mls/hr Q12H IV ; Start 01/11 08/01 at 13:00; Stop 01/22/19 at 08:15; Status DC Vancomycin HCl (Vancomycin Trough Level) 1 each 1X ONCE MC ; Start 01/23/19 at 12:30; Stop 01/23/19 at 12:31; Status Cancel Meropenem 500 mg/ Sodium Chloride 50 ml @ 100 mls/hr Q8HRS IV Last administere d on 01/22/19at 22:48; Start 01/22/19 at 14:00 Acetaminophen (Tylenol) 650 mg PRN Q6HRS PRN PEG MILD PAIN / TEMP; Start 01/22/19 at 09:45 Magnesium Sulfate 50 ml @ 25 mls/hr 1X ONCE IV Last administered on 01/22/19at 11:53; Start 01/22/19 at 11:00; Stop 01/22/19 at 12:59; Status DC Dopamine HCl/ Dextrose 250 ml @ 5.749 mls/ hr CONT PRN IV SEE I/O RECORD Last administered on 01/22/19at 23:25; Start 01/22/19 at 11:45 Sodium Chloride (Iv Sodium Chloride 0.9% 50ml) 25 ml CONT IV ; Start 01/22/19 at 11:45; Status UNV Sodium Chloride 1,000 ml @ 25 mls/hr Q24H IV Last administered on 01/22/19at 14:47; Start 01/22/19 at 12:00 Phytonadione (Mephyton Oral Soln) 10 mg 1X ONCE PO Last administered on 01/22/19at 18:50; Start 01/22/19 at 19:00; Stop 01/22/19 at 19:01; Status DC Phytonadione (Mephyton Oral Soln) 5 mg 1X ONCE PO Last administered on 01/22/19at 20:09; Start 01/22/19 at 20:00; Stop 01/22/19 at 20:01; Status DC Norepinephrine Bitartrate 250 ml @ 14.373 mls/ hr CONT PRN IV SEE I/O RECORD; Start 01/22/19 at 20:45 Sodium Bicarbonate (Sodium Bicarb Adult 8.4% Syr) 50 meq 1X ONCE IV Last administered on 01/22/19at 22:41; Start 01/22/19 at 21:45; Stop 01/22/19 at 21:46; Status DC Sodium Bicarbonate 150 meq/Sterile Water 1,150 ml @ 75 mls/hr [id number] IV Last administered on 01/22/19at 22:25; Start 01/22/19 at 22:00 Lidocaine HCl/ Dextrose 500 ml @ 0 mls/hr CONT PRN IV SEE I/O RECORD; Start 01/23/19 at 06:00 Lidocaine HCl (Lidocaine HCl 2% Abboject) 50 mg 1X ONCE IV ; Start 01/23/19 at 06:00; Stop 01/23/19 at 05:58; Status DC Lidocaine HCl (Lidocaine HCl 2% Abboject) 75 mg 1X ONCE IV ; Start 01/23/19 at 06:00; Stop 01/23/19 at 06:01; Status DC Active Scripts Active Reported Fish Oil 1,000 Mg Capsule (Rosepine-3 Fatty Acids/Fish Oil) 1 Each Capsule 1 Each PO DAILY Clopidogrel (Clopidogrel Bisulfate) 75 Mg Tablet 1 Tab PO DAILY Aspirin 81 Mg Tab.chew 1 Tab PO DAILY Warfarin Sodium 2.5 Mg Tablet 2.5 Mg PO DAILY Warfarin Sodium 5 Mg Tablet 5 Mg PO DAILY Spironolactone 25 Mg Tablet 1 Tab PO DAILY Metoprolol Tartrate 100 Mg Tablet 1.5 Tab PO DAILY Lipitor (Atorvastatin Calcium) 80 Mg Tablet 1 Tab PO DAILY Protonix (Pantoprazole Sodium) 20 Mg Tablet.dr 2 Tab PO DAILY Mag-Oxide (Magnesium Oxide) 400 Mg Tablet 1 Tab PO DAILY Multivitamins (Multivitamin) 1 Each Tablet 1 Tab PO DAILY Albuterol Sulfate Conc Neb Soln (Albuterol Sulfate) 2.5 Mg/0.5 Ml Vial.neb 1 Vi al NEB Q6HRS Zyrtec (Cetirizine Hcl) 10 Mg Tablet 1 Tab PO DAILY Advair 100-50 Diskus (Fluticasone/Salmeterol) 1 Each Disk.w.dev 1 Puff IH BID NITROGLYCERIN SubLingual (Nitroglycerin) 0.4 Mg Tab.subl 0.4 Mg SL PRN Q5MIN PRN Vitals/I & O Vital Sign - Last 24 Hours 01/22/19 01/22/19 01/22/19 01/22/19 07:00 07:00 07:30 07:30 Temp 93.4 Pulse 58 58 Resp 24 24 B/P (MAP) 82/49 (60) 78/50 (59) Pulse Ox 100 98 100 O2 Delivery Ventilator Ventilator Ventilator 01/22/19 01/22/19 01/22/19 01/22/19 08:00 08:00 08:00 08:00 Temp 94.0 91.6 Pulse 60 Resp 24 B/P (MAP) 78/43 (55) Pulse Ox 95 O2 Delivery Mechanical Ventilator Ventilator 01/22/19 01/22/19 01/22/19 01/22/19 08:30 09:00 09:00 09:15 Pulse 60 58 Resp 24 24 B/P (MAP) 92/49 (63) 102/52 (69) Pulse Ox 97 100 99 O2 Delivery Ventilator Ventilator Ventilator 01/22/19 01/22/19 01/22/19 01/22/19 09:30 10:00 10:00 10:09 Temp 92.2 Pulse 58 60 Resp 24 24 B/P (MAP) 92/52 (65) 95/50 (65) Pulse Ox 98 95 100 O2 Delivery Ventilator Ventilator O2 Flow Rate 15.0 01/22/19 01/22/19 01/22/19 01/22/19 10:30 11:00 11:00 11:00 Temp 93.0 Pulse 58 60 Resp 24 24 B/P (MAP) 102/65 (77) 87/49 (62) Pulse Ox 97 98 O2 Delivery Ventilator Mechanical Ventilator 01/22/19 01/22/19 01/22/19 01/22/19 11:30 11:53 12:00 12:00 Temp 94.0 Pulse 60 Resp 24 B/P (MAP) 100/66 (77) Pulse Ox 98 100 98 O2 Delivery Ventilator O2 Flow Rate 15.0 01/22/19 01/22/19 01/22/19 01/22/19 12:30 13:00 13:00 13:30 Temp 92.0 Pulse 58 60 58 Resp 24 24 27 B/P (MAP) 115/65 (82) 132/70 (90) 135/69 (91) Pulse Ox 98 100 100 01/22/19 01/22/19 01/22/19 01/22/19 14:00 14:00 14:30 15:00 Temp 93.0 Pulse 58 58 58 Resp 27 B/P (MAP) 123/67 (85) 119/67 (84) 112/52 (72) Pulse Ox 100 93 94 01/22/19 01/22/19 01/22/19 01/22/19 15:00 15:17 16:00 16:00 Temp 95.0 Pulse 68 Resp 27 B/P (MAP) 138/63 (88) Pulse Ox 100 O2 Delivery Ventilator Mechanical Ventilator 01/22/19 01/22/19 01/22/19 01/22/19 16:00 17:00 17:00 18:00 Temp 93.0 92.0 Pulse 68 Resp 28 B/P (MAP) 86/53 (64) Pulse Ox 100 01/22/19 01/22/19 01/22/19 01/22/19 18:00 18:30 19:00 19:00 Temp 92.3 92.3 92.3 Pulse 68 68 68 Resp 27 28 B/P (MAP) 113/67 (82) 143/80 (101) 130/71 (90) Pulse Ox 100 100 100 O2 Delivery Ventilator Ventilator 01/22/19 01/22/19 01/22/19 01/22/19 19:39 20:00 20:00 20:35 Temp 92.3 Pulse 68 154 Resp 28 36 B/P (MAP) 80/46 (57) 194/91 (125) Pulse Ox 100 97 83 O2 Delivery Ventilator Ventilator Ventilator Ventilator 01/22/19 01/22/19 01/22/19 01/22/19 20:45 20:56 21:00 21:00 Temp 92.3 Pulse 100 94 Resp 36 36 B/P (MAP) 112/68 (83) 68/61 (63) Pulse Ox 100 98 93 O2 Delivery Ventilator Ventilator Ventilator Ventilator 01/22/19 01/22/19 01/22/19 01/22/19 21:30 21:47 22:00 22:00 Temp 91.9 Pulse 102 100 Resp 36 18 36 B/P (MAP) 143/93 (110) 105/75 (85) Pulse Ox 98 98 96 O2 Delivery Ventilator Ventilator Ventilator Ventilator 01/22/19 01/22/19 01/22/19 01/23/19 23:00 23:00 23:00 00:00 Temp 92.0 92.0 Pulse 100 Resp 36 B/P (MAP) 121/78 (92) Pulse Ox 96 96 O2 Delivery Ventilator Ventilator Ventilator Ventilator 01/23/19 01/23/19 01/23/19 01/23/19 00:00 01:00 01:00 01:00 Temp 91.7 91.6 91.7 Pulse 78 80 Resp 36 36 B/P (MAP) 161/111 (128) 127/86 (100) Pulse Ox 99 100 100 O2 Delivery Ventilator Ventilator Ventilator Ventilator 01/23/19 01/23/19 01/23/19 01/23/19 02:00 02:00 02:20 03:00 Temp 91.4 Pulse 74 80 74 Resp 36 36 36 B/P (MAP) 127/79 (95) 128/82 (97) 190/105 (133) Pulse Ox 100 100 100 O2 Delivery Ventilator Ventilator Ventilator Ventilator 01/23/19 01/23/19 01/23/19 01/23/19 03:30 04:00 04:12 04:30 Temp 91.6 91.6 Pulse 80 82 74 Resp 36 36 36 B/P (MAP) 122/91 (101) 143/84 (103) 145/92 (109) Pulse Ox 100 100 100 100 O2 Delivery Ventilator Ventilator Ventilator Ventilator Intake and Output 01/22/19 01/22/19 01/23/19 15:00 23:00 07:00 Intake Total 50 ml 1057 ml 717 ml Output Total 915 ml 345 ml 75 ml Balance -865 ml 712 ml 642 ml SIVA FINK MD Jan 23, 2019 06:27
[2019-01-23] MEDS: MEROPENEM 500 MG in IV NORMAL SALINE 50ML 50 ML IV SCH (06:38)
[2019-01-23] MEDS: POLYVINYL ALCOHOL 1.4% OPHTH SOLUTION 15ML BOTTLE. OU SCH ×2 (06:39)
--- NOTE | 2019-01-23 08:08 | PDOC ---
Infectious Disease Note Subjective Subjective pt was coded twice last night , had V tach ROS ROS no n/v/d/fever Vital Sign Vital Signs Vital Signs Date Time Temp Pulse Resp B/P (MAP) Pulse Ox O2 Delivery O2 Flow Rate FiO2 01/23/19 07:47 94.2 92 38 92/65 94.2 01/23/19 04:30 100 Ventilator 01/22/19 11:53 15.0 Physical Exam PHYSICAL EXAM GENERAL: Sedated, orally intubated gentleman, not in any distress. VITAL SIGNS: stable HEENT: Both pupils are round and reacting. No conjunctival lesion, no oral lesion. Not much mouth can be visualized due to orally intubated. NECK: Supple, no JVP, no lymphadenopathy. LUNGS: Clear anteriorly. HEART: S1, S2 regular. No gallop or murmur. ABDOMEN: Soft, nontender, no organomegaly. EXTREMITIES: No edema or cyanosis. The patient does have bruising all over the place. The patient is currently not moving any extremities as the patient is sedated on a ventilator. Labs Lab Laboratory Tests Test 01/22/19 09:15 01/22/19 18:00 01/22/19 18:04 01/22/19 20:33 O2 Saturation 93 % (92-99) Arterial Blood pH 7.29 (7.35-7.45) Arterial Blood pCO2 at Patient Temp 37 mmHg (35-46) Arterial Blood pO2 at Patient Temp 78 mmHg (65-108) Arterial Blood HCO3 17 mmol/L (21-28) Arterial Blood Base Excess -9 mmol/L (-3-3) FiO2 100 White Blood Count 17.0 x10^3/uL (4.0-11.0) Red Blood Count 4.06 x10^6/uL (4.30-5.70) Hemoglobin 12.0 g/dL (13.0-17.5) Hematocrit 36.1 % (39.0-53.0) Mean Corpuscular Volume 89 fL (79-100) Mean Corpuscular Hemoglobin 29 pg (25-35) Mean Corpuscular Hemoglobin Concent 33 g/dL (31-37) Red Cell Distribution Width 17.2 % (11.5-14.5) Platelet Count 116 x10^3/uL (140-400) Neutrophils (%) (Auto) 90 % (31-73) Lymphocytes (%) (Auto) 4 % (24-48) Monocytes (%) (Auto) 6 % (0-9) Eosinophils (%) (Auto) 0 % (0-3) Basophils (%) (Auto) 0 % (0-3) Neutrophils # (Auto) 15.3 x10^3/uL (1.8-7.7) Lymphocytes # (Auto) 0.7 x10^3/uL (1.0-4.8) Monocytes # (Auto) 1.0 x10^3/uL (0.0-1.1) Eosinophils # (Auto) 0.0 x10^3/uL (0.0-0.7) Basophils # (Auto) 0.0 x10^3/uL (0.0-0.2) Prothrombin Time 50.2 SEC (11.7-14.0) Prothromb Time International Ratio 5.5 (0.8-1.1) Activated Partial Thromboplast Time 55 SEC (24-38) Sodium Level 128 mmol/L (136-145) Potassium Level 5.1 mmol/L (3.5-5.1) Chloride Level 96 mmol/L (98-107) Carbon Dioxide Level 23 mmol/L (21-32) Anion Gap 9 (6-14) Blood Urea Nitrogen 20 mg/dL (8-26) Creatinine 1.7 mg/dL (0.7-1.3) Estimated GFR (Cockcroft-Gault) 39.6 Glucose Level 151 mg/dL (70-99) Calcium Level 7.7 mg/dL (8.5-10.1) Magnesium Level 2.4 mg/dL (1.8-2.4) Alkaline Phosphatase 106 U/L (46-116) Glucose (Fingerstick) 137 mg/dL (70-99) 111 mg/dL (70-99) Test 01/22/19 20:40 01/23/19 00:58 01/23/19 01:20 01/23/19 01:32 O2 Saturation 98 % (92-99) 94 % (92-99) Arterial Blood pH 7.15 (7.35-7.45) 7.25 (7.35-7.45) Arterial Blood pH (Temp corrected) 7.20 7.31 Arterial Blood pCO2 at Patient Temp 48 mmHg (35-46) 36 mmHg (35-46) Arterial Blood pCO2 (Temp correct) 41 mmHg 30 mmHg Arterial Blood pO2 at Patient Temp 155 mmHg (65-108) 85 mmHg (65-108) Arterial Blood pO2 (Temp corrected) 134 mmHg 67 mmHg Arterial Blood HCO3 16 mmol/L (21-28) 15 mmol/L (21-28) Arterial Blood Base Excess -12 mmol/L (-3-3) -11 mmol/L (-3-3) FiO2 100 100 Potassium Level 4.6 mmol/L (3.5-5.1) Glucose (Fingerstick) 152 mg/dL (70-99) Test 01/23/19 04:00 Prothrombin Time 67.5 SEC (11.7-14.0) Prothromb Time International Ratio 7.9 (0.8-1.1) Sodium Level 129 mmol/L (136-145) Potassium Level 4.5 mmol/L (3.5-5.1) Chloride Level 95 mmol/L (98-107) Carbon Dioxide Level 22 mmol/L (21-32) Anion Gap 12 (6-14) Blood Urea Nitrogen 24 mg/dL (8-26) Creatinine 2.0 mg/dL (0.7-1.3) Estimated GFR (Cockcroft-Gault) 32.8 Glucose Level 143 mg/dL (70-99) Calcium Level 7.7 mg/dL (8.5-10.1) Phosphorus Level 5.9 mg/dL (2.6-4.7) Magnesium Level 2.3 mg/dL (1.8-2.4) Procalcitonin 3.97 ng/mL (0.00-0.10) Micro Microbiology 01/22/19 Blood Culture - Preliminary, Resulted NO GROWTH AFTER 1 DAY Objective Assessment S/P Cardiac arrest now coded multiple times Leukocytosis likely reactive Aspiration possible CHF CAD Respiratory failure Shock liver Elevated troponin JESSICA Plan Plan of Care cont meropenem jara culture supportive care d/w and son prognosis guarded MICHAEL BONILLA MD Jan 23, 2019 08:08
[2019-01-23 08:23] LABS: BASE EXCESS ABG -7 mmol/L (-3-3); HCO3 ABG 18 mmol/L (21-28); PCO2 ABG 33 mmHg (35-46); PO2 ABG 96 mmHg (65-108); SAT O2 ABG 97 % (92-99)
[2019-01-23 08:26] LABS: FIO2 ABG 100
[2019-01-23] MEDS: PANTOPRAZOLE IV PUSH 40 MG VIAL. IVP SCH ×2 (08:28→09:39)
--- NOTE | 2019-01-23 08:42 | RAD ---
Single AP view of the chest. Comparison: 01/21/2019. Indication: Follow-up examination, patient intubated Findings: Right internal jugular central line, nasogastric tube and endotracheal tube left subclavian pacemaker, sternotomy wires and CABG clips are reidentified. The heart is enlarged but stable. There is no pneumothorax or effusion. Persistent bilateral mixed airspace and interstitial opacities. Impression: 1. Stable examination. Findings again suggest ARDS or severe pulmonary edema. Electronically signed by: Roney Brewer MD (01/23/2019 8:39 AM) [id number]
[2019-01-23] MEDS: CHLORHEXIDINE 0.12% 15 ML MOUTHWASH. MM SCH (09:00)
--- NOTE | 2019-01-23 09:03 | PDOC ---
PULMONARY PROGRESS NOTES Subjective EVENT OF LAST PATRICIA AND THIS AM NOTED SPOKE WITH DR Bucio PT NOW ON IABP ON EPI ON NAHCO3 DRIP Vitals Vital Signs Date Time Temp Pulse Resp B/P (MAP) Pulse Ox O2 Delivery O2 Flow Rate FiO2 01/23/19 08:42 95.0 94 37 103/62 95.0 01/23/19 07:50 100 Ventilator 01/22/19 11:53 15.0 Lungs: Crackles Cardiovascular: S1, S2 Abdomen: Other (OBESE) Extremities: Other (EDEMA) Skin: Warm Labs Laboratory Tests Test 01/21/19 20:24 01/21/19 20:40 01/21/19 20:42 01/21/19 20:47 Glucose (Fingerstick) 112 mg/dL (70-99) O2 Saturation 90 % (92-99) Arterial Blood pH 7.00 (7.35-7.45) Arterial Blood pCO2 at Patient Temp 52 mmHg (35-46) Arterial Blood pO2 at Patient Temp 92 mmHg (65-108) Arterial Blood HCO3 13 mmol/L (21-28) Arterial Blood Base Excess -19 mmol/L (-3-3) Oxyhemoglobin 89.3 % Methemoglobin 0.6 % (0.0-1.9) Carbon Monoxide, Quantitative 0.3 % (0.0-1.9) FiO2 100 Bedside Troponin I 0.43 ng/ml (<0.08) Bedside Hemoglobin 13.3 g/dL (14-18) Bedside Hematocrit 39 % (37-52) Bedside Sodium 122 mmol/L (135-145) Bedside Potassium 4.0 mmol/L (3.5-5.0) Bedside Chloride 94 mmol/L (98-110) Bedside Total CO2 17 mmol/L (23-32) Anion Gap 16 mmol/L (6-14) Bedside Blood Urea Nitrogen 9 mg/dL (8-26) Bedside Creatinine 1.2 mg/dL (0.5-1.4) Glucose Level 126 mg/dL (70-99) Bedside Ionized Calcium (Amada) 0.93 mmol/L (1.13-1.32) Test 01/21/19 21:46 01/21/19 23:03 01/21/19 23:20 01/21/19 23:31 O2 Saturation 85 % (92-99) 96 % (92-99) Arterial Blood pH 7.09 (7.35-7.45) 7.22 (7.35-7.45) Arterial Blood pCO2 at Patient Temp 56 mmHg (35-46) 37 mmHg (35-46) Arterial Blood pO2 at Patient Temp 72 mmHg (65-108) 106 mmHg (65-108) Arterial Blood HCO3 17 mmol/L (21-28) 15 mmol/L (21-28) Arterial Blood Base Excess -14 mmol/L (-3-3) -12 mmol/L (-3-3) FiO2 100 100 Arterial Blood pH (Temp corrected) 7.26 Arterial Blood pCO2 (Temp correct) 33 mmHg Arterial Blood pO2 (Temp corrected) 91 mmHg Oxyhemoglobin 95.0 % Methemoglobin 0.3 % (0.0-1.9) Carbon Monoxide, Quantitative 0.5 % (0.0-1.9) White Blood Count 21.0 x10^3/uL (4.0-11.0) Red Blood Count 4.06 x10^6/uL (4.30-5.70) Hemoglobin 12.1 g/dL (13.0-17.5) Hematocrit 36.4 % (39.0-53.0) Mean Corpuscular Volume 90 fL (79-100) Mean Corpuscular Hemoglobin 30 pg (25-35) Mean Corpuscular Hemoglobin Concent 33 g/dL (31-37) Red Cell Distribution Width 17.5 % (11.5-14.5) Platelet Count 157 x10^3/uL (140-400) Neutrophils (%) (Auto) 88 % (31-73) Lymphocytes (%) (Auto) 4 % (24-48) Monocytes (%) (Auto) 7 % (0-9) Eosinophils (%) (Auto) 0 % (0-3) Basophils (%) (Auto) 0 % (0-3) Neutrophils # (Auto) 18.5 x10^3/uL (1.8-7.7) Lymphocytes # (Auto) 0.9 x10^3/uL (1.0-4.8) Monocytes # (Auto) 1.4 x10^3/uL (0.0-1.1) Eosinophils # (Auto) 0.1 x10^3/uL (0.0-0.7) Basophils # (Auto) 0.1 x10^3/uL (0.0-0.2) Segmented Neutrophils % 63 % (35-66) Band Neutrophils % 22 % (0-9) Lymphocytes % 7 % (24-48) Monocytes % 4 % (0-10) Metamyelocytes % 2 % (0-0) Myelocytes % 1 % (0-0) Promyelocytes % 1 % (0-0) Toxic Granulation Slight Platelet Estimate Adequate (ADEQUATE) Anisocytosis Slight Prothrombin Time 35.8 SEC (11.7-14.0) Prothromb Time International Ratio 3.6 (0.8-1.1) Sodium Level 126 mmol/L (136-145) Potassium Level 5.6 mmol/L (3.5-5.1) Chloride Level 92 mmol/L (98-107) Carbon Dioxide Level 20 mmol/L (21-32) Anion Gap 14 (6-14) Blood Urea Nitrogen 12 mg/dL (8-26) Creatinine 1.2 mg/dL (0.7-1.3) Estimated GFR (Cockcroft-Gault) 59.2 BUN/Creatinine Ratio 10 (6-20) Glucose Level 134 mg/dL (70-99) Lactic Acid Level 3.7 mmol/L (0.4-2.0) Calcium Level 7.2 mg/dL (8.5-10.1) Phosphorus Level 6.8 mg/dL (2.6-4.7) Magnesium Level 1.5 mg/dL (1.8-2.4) Total Bilirubin 0.9 mg/dL (0.2-1.0) Aspartate Amino Transf (AST/SGOT) 225 U/L (15-37) Alanine Aminotransferase (ALT/SGPT) 125 U/L (16-63) Alkaline Phosphatase 151 U/L (46-116) Creatine Kinase 733 U/L (39-308) Creatine Kinase MB (Mass) 28.2 ng/mL (0.0-3.6) Creatine Kinase MB Relative Index 3.8 % (0-4) Troponin I Quantitative 4.112 ng/mL (0.000-0.055) C-Reactive Protein, Quantitative 5.8 mg/L (0-3.3) NB-Eas-J-Type Natriuretic Peptide 3826 pg/mL (0-124) Total Protein 6.1 g/dL (6.4-8.2) Albumin 3.1 g/dL (3.4-5.0) Albumin/Globulin Ratio 1.0 (1.0-1.7) Lipase 86 U/L (73-393) Procalcitonin 0.16 ng/mL (0.00-0.10) Thyroid Stimulating Hormone (TSH) 1.556 uIU/mL (0.358-3.74) Glucose (Fingerstick) 114 mg/dL (70-99) Test 01/22/19 03:15 01/22/19 05:38 01/22/19 05:40 01/22/19 09:15 Nasal Screen MRSA (PCR) Negative (Negative) Glucose (Fingerstick) 149 mg/dL (70-99) Sodium Level 125 mmol/L (136-145) Potassium Level 4.0 mmol/L (3.5-5.1) Chloride Level 94 mmol/L (98-107) Carbon Dioxide Level 18 mmol/L (21-32) Anion Gap 13 (6-14) Blood Urea Nitrogen 15 mg/dL (8-26) Creatinine 1.3 mg/dL (0.7-1.3) Estimated GFR (Cockcroft-Gault) 54.0 BUN/Creatinine Ratio 12 (6-20) Glucose Level 143 mg/dL (70-99) Calcium Level 7.1 mg/dL (8.5-10.1) Total Bilirubin 1.1 mg/dL (0.2-1.0) Aspartate Amino Transf (AST/SGOT) 198 U/L (15-37) Alanine Aminotransferase (ALT/SGPT) 112 U/L (16-63) Alkaline Phosphatase 125 U/L (46-116) Troponin I Quantitative 7.800 ng/mL (0.000-0.055) Total Protein 5.9 g/dL (6.4-8.2) Albumin 2.9 g/dL (3.4-5.0) Albumin/Globulin Ratio 1.0 (1.0-1.7) Triglycerides Level 56 mg/dL (0-150) Cholesterol Level 90 mg/dL (0-200) LDL Cholesterol, Calculated 6 mg/dL (0-100) VLDL Cholesterol, Calculated 11 mg/dL (0-40) Non-HDL Cholesterol Calculated 17 mg/dL (0-129) HDL Cholesterol 73 mg/dL (40-60) Cholesterol/HDL Ratio 1.2 O2 Saturation 93 % (92-99) Arterial Blood pH 7.29 (7.35-7.45) Arterial Blood pCO2 at Patient Temp 37 mmHg (35-46) Arterial Blood pO2 at Patient Temp 78 mmHg (65-108) Arterial Blood HCO3 17 mmol/L (21-28) Arterial Blood Base Excess -9 mmol/L (-3-3) FiO2 100 Test 01/22/19 18:00 01/22/19 18:04 01/22/19 20:33 01/22/19 20:40 White Blood Count 17.0 x10^3/uL (4.0-11.0) Red Blood Count 4.06 x10^6/uL (4.30-5.70) Hemoglobin 12.0 g/dL (13.0-17.5) Hematocrit 36.1 % (39.0-53.0) Mean Corpuscular Volume 89 fL (79-100) Mean Corpuscular Hemoglobin 29 pg (25-35) Mean Corpuscular Hemoglobin Concent 33 g/dL (31-37) Red Cell Distribution Width 17.2 % (11.5-14.5) Platelet Count 116 x10^3/uL (140-400) Neutrophils (%) (Auto) 90 % (31-73) Lymphocytes (%) (Auto) 4 % (24-48) Monocytes (%) (Auto) 6 % (0-9) Eosinophils (%) (Auto) 0 % (0-3) Basophils (%) (Auto) 0 % (0-3) Neutrophils # (Auto) 15.3 x10^3/uL (1.8-7.7) Lymphocytes # (Auto) 0.7 x10^3/uL (1.0-4.8) Monocytes # (Auto) 1.0 x10^3/uL (0.0-1.1) Eosinophils # (Auto) 0.0 x10^3/uL (0.0-0.7) Basophils # (Auto) 0.0 x10^3/uL (0.0-0.2) Prothrombin Time 50.2 SEC (11.7-14.0) Prothromb Time International Ratio 5.5 (0.8-1.1) Activated Partial Thromboplast Time 55 SEC (24-38) Sodium Level 128 mmol/L (136-145) Potassium Level 5.1 mmol/L (3.5-5.1) Chloride Level 96 mmol/L (98-107) Carbon Dioxide Level 23 mmol/L (21-32) Anion Gap 9 (6-14) Blood Urea Nitrogen 20 mg/dL (8-26) Creatinine 1.7 mg/dL (0.7-1.3) Estimated GFR (Cockcroft-Gault) 39.6 Glucose Level 151 mg/dL (70-99) Calcium Level 7.7 mg/dL (8.5-10.1) Magnesium Level 2.4 mg/dL (1.8-2.4) Alkaline Phosphatase 106 U/L (46-116) Glucose (Fingerstick) 137 mg/dL (70-99) 111 mg/dL (70-99) O2 Saturation 98 % (92-99) Arterial Blood pH 7.15 (7.35-7.45) Arterial Blood pH (Temp corrected) 7.20 Arterial Blood pCO2 at Patient Temp 48 mmHg (35-46) Arterial Blood pCO2 (Temp correct) 41 mmHg Arterial Blood pO2 at Patient Temp 155 mmHg (65-108) Arterial Blood pO2 (Temp corrected) 134 mmHg Arterial Blood HCO3 16 mmol/L (21-28) Arterial Blood Base Excess -12 mmol/L (-3-3) FiO2 100 Test 01/23/19 00:58 01/23/19 01:20 01/23/19 01:32 01/23/19 04:00 O2 Saturation 94 % (92-99) Arterial Blood pH 7.25 (7.35-7.45) Arterial Blood pH (Temp corrected) 7.31 Arterial Blood pCO2 at Patient Temp 36 mmHg (35-46) Arterial Blood pCO2 (Temp correct) 30 mmHg Arterial Blood pO2 at Patient Temp 85 mmHg (65-108) Arterial Blood pO2 (Temp corrected) 67 mmHg Arterial Blood HCO3 15 mmol/L (21-28) Arterial Blood Base Excess -11 mmol/L (-3-3) FiO2 100 Potassium Level 4.6 mmol/L (3.5-5.1) 4.5 mmol/L (3.5-5.1) Glucose (Fingerstick) 152 mg/dL (70-99) Prothrombin Time 67.5 SEC (11.7-14.0) Prothromb Time International Ratio 7.9 (0.8-1.1) Sodium Level 129 mmol/L (136-145) Chloride Level 95 mmol/L (98-107) Carbon Dioxide Level 22 mmol/L (21-32) Anion Gap 12 (6-14) Blood Urea Nitrogen 24 mg/dL (8-26) Creatinine 2.0 mg/dL (0.7-1.3) Estimated GFR (Cockcroft-Gault) 32.8 Glucose Level 143 mg/dL (70-99) Calcium Level 7.7 mg/dL (8.5-10.1) Phosphorus Level 5.9 mg/dL (2.6-4.7) Magnesium Level 2.3 mg/dL (1.8-2.4) Procalcitonin 3.97 ng/mL (0.00-0.10) Test 01/23/19 07:50 01/23/19 08:20 O2 Saturation 97 % (92-99) Arterial Blood pH 7.35 (7.35-7.45) Arterial Blood pCO2 at Patient Temp 33 mmHg (35-46) Arterial Blood pO2 at Patient Temp 96 mmHg (65-108) Arterial Blood HCO3 18 mmol/L (21-28) Arterial Blood Base Excess -7 mmol/L (-3-3) FiO2 100 Glucose (Fingerstick) 154 mg/dL (70-99) Laboratory Tests Test 01/22/19 09:15 01/22/19 18:00 01/22/19 18:04 01/22/19 20:33 O2 Saturation 93 % (92-99) Arterial Blood pH 7.29 (7.35-7.45) Arterial Blood pCO2 at Patient Temp 37 mmHg (35-46) Arterial Blood pO2 at Patient Temp 78 mmHg (65-108) Arterial Blood HCO3 17 mmol/L (21-28) Arterial Blood Base Excess -9 mmol/L (-3-3) FiO2 100 White Blood Count 17.0 x10^3/uL (4.0-11.0) Red Blood Count 4.06 x10^6/uL (4.30-5.70) Hemoglobin 12.0 g/dL (13.0-17.5) Hematocrit 36.1 % (39.0-53.0) Mean Corpuscular Volume 89 fL (79-100) Mean Corpuscular Hemoglobin 29 pg (25-35) Mean Corpuscular Hemoglobin Concent 33 g/dL (31-37) Red Cell Distribution Width 17.2 % (11.5-14.5) Platelet Count 116 x10^3/uL (140-400) Neutrophils (%) (Auto) 90 % (31-73) Lymphocytes (%) (Auto) 4 % (24-48) Monocytes (%) (Auto) 6 % (0-9) Eosinophils (%) (Auto) 0 % (0-3) Basophils (%) (Auto) 0 % (0-3) Neutrophils # (Auto) 15.3 x10^3/uL (1.8-7.7) Lymphocytes # (Auto) 0.7 x10^3/uL (1.0-4.8) Monocytes # (Auto) 1.0 x10^3/uL (0.0-1.1) Eosinophils # (Auto) 0.0 x10^3/uL (0.0-0.7) Basophils # (Auto) 0.0 x10^3/uL (0.0-0.2) Prothrombin Time 50.2 SEC (11.7-14.0) Prothromb Time International Ratio 5.5 (0.8-1.1) Activated Partial Thromboplast Time 55 SEC (24-38) Sodium Level 128 mmol/L (136-145) Potassium Level 5.1 mmol/L (3.5-5.1) Chloride Level 96 mmol/L (98-107) Carbon Dioxide Level 23 mmol/L (21-32) Anion Gap 9 (6-14) Blood Urea Nitrogen 20 mg/dL (8-26) Creatinine 1.7 mg/dL (0.7-1.3) Estimated GFR (Cockcroft-Gault) 39.6 Glucose Level 151 mg/dL (70-99) Calcium Level 7.7 mg/dL (8.5-10.1) Magnesium Level 2.4 mg/dL (1.8-2.4) Alkaline Phosphatase 106 U/L (46-116) Glucose (Fingerstick) 137 mg/dL (70-99) 111 mg/dL (70-99) Test 01/22/19 20:40 01/23/19 00:58 01/23/19 01:20 01/23/19 01:32 O2 Saturation 98 % (92-99) 94 % (92-99) Arterial Blood pH 7.15 (7.35-7.45) 7.25 (7.35-7.45) Arterial Blood pH (Temp corrected) 7.20 7.31 Arterial Blood pCO2 at Patient Temp 48 mmHg (35-46) 36 mmHg (35-46) Arterial Blood pCO2 (Temp correct) 41 mmHg 30 mmHg Arterial Blood pO2 at Patient Temp 155 mmHg (65-108) 85 mmHg (65-108) Arterial Blood pO2 (Temp corrected) 134 mmHg 67 mmHg Arterial Blood HCO3 16 mmol/L (21-28) 15 mmol/L (21-28) Arterial Blood Base Excess -12 mmol/L (-3-3) -11 mmol/L (-3-3) FiO2 100 100 Potassium Level 4.6 mmol/L (3.5-5.1) Glucose (Fingerstick) 152 mg/dL (70-99) Test 01/23/19 04:00 01/23/19 07:50 01/23/19 08:20 Prothrombin Time 67.5 SEC (11.7-14.0) Prothromb Time International Ratio 7.9 (0.8-1.1) Sodium Level 129 mmol/L (136-145) Potassium Level 4.5 mmol/L (3.5-5.1) Chloride Level 95 mmol/L (98-107) Carbon Dioxide Level 22 mmol/L (21-32) Anion Gap 12 (6-14) Blood Urea Nitrogen 24 mg/dL (8-26) Creatinine 2.0 mg/dL (0.7-1.3) Estimated GFR (Cockcroft-Gault) 32.8 Glucose Level 143 mg/dL (70-99) Calcium Level 7.7 mg/dL (8.5-10.1) Phosphorus Level 5.9 mg/dL (2.6-4.7) Magnesium Level 2.3 mg/dL (1.8-2.4) Procalcitonin 3.97 ng/mL (0.00-0.10) O2 Saturation 97 % (92-99) Arterial Blood pH 7.35 (7.35-7.45) Arterial Blood pCO2 at Patient Temp 33 mmHg (35-46) Arterial Blood pO2 at Patient Temp 96 mmHg (65-108) Arterial Blood HCO3 18 mmol/L (21-28) Arterial Blood Base Excess -7 mmol/L (-3-3) FiO2 100 Glucose (Fingerstick) 154 mg/dL (70-99) Medications Active Scripts Medications Dose Route/Sig Max Daily Dose Days Date Category Fish Oil 1,000 Mg Capsule (Bryant-3 Fatty Acids/Fish Oil) 1 Each Capsule 1 Each PO DAILY 01/22/19 Reported Clopidogrel (Clopidogrel Bisulfate) 75 Mg Tablet 1 Tab PO DAILY 01/22/19 Reported Aspirin 81 Mg Tab.chew 1 Tab PO DAILY 01/22/19 Reported Warfarin Sodium 2.5 Mg Tablet 2.5 Mg PO DAILY 01/22/19 Reported Warfarin Sodium 5 Mg Tablet 5 Mg PO DAILY 01/22/19 Reported Spironolactone 25 Mg Tablet 1 Tab PO DAILY 01/22/19 Reported Metoprolol Tartrate 100 Mg Tablet 1.5 Tab PO DAILY 01/22/19 Reported Lipitor (Atorvastatin Calcium) 80 Mg Tablet 1 Tab PO DAILY 01/22/19 Reported Protonix (Pantoprazole Sodium) 20 Mg Tablet.dr 2 Tab PO DAILY 01/22/19 Reported Mag-Oxide (Magnesium Oxide) 400 Mg Tablet 1 Tab PO DAILY 01/22/19 Reported Multivitamins (Multivitamin) 1 Each Tablet 1 Tab PO DAILY 01/22/19 Reported Albuterol Sulfate Conc Neb Soln (Albuterol Sulfate) 2.5 Mg/0.5 Ml Vial.neb 1 Vial NEB Q6HRS 01/22/19 Reported Zyrtec (Cetirizine Hcl) 10 Mg Tablet 1 Tab PO DAILY 01/22/19 Reported Advair 100-50 Diskus (Fluticasone/Salmeterol) 1 Each Disk.w.dev 1 Puff IH BID 01/22/19 Reported NITROGLYCERIN SubLingual (Nitroglycerin) 0.4 Mg Tab.subl 0.4 Mg SL PRN Q5MIN PRN 01/22/19 Reported Impression . IMPRESSION: 1. Acute respiratory failure secondary to [id number] cardiopulmonary arrest.CODED SEVERAL TIMES IN ICU 2. [id number] cardiac arrest.INHOUSE ARREST IN ADDITION TO OUT OF HOSPITAL 3. Coronary artery disease with previous coronary artery bypass grafting. S/P IABP 01/23 4. Secondary pulmonary hypertension. 5. Possible aspiration pneumonia. 6. Wgidy-nq-lmsmwoy systolic heart failure. 7. Chronic obstructive pulmonary disease. 8. Tobacco dependence, in remission. 9. Status post pacemaker implantation. Plan . D/W DR Bucio S/P IABP NOW ON EPI SEDATED WILL CONTINUE SUPPORT ABG BD PROGNOSIS IS POOR SUSPECT ANOXIC BRAIN INJURY CCT 30 MINUTES REVIEWING THE DATA/CXR/ABG AND OTHER LABS/ AND FORMULATING A PLAN JOSY WRIGHT MD Jan 23, 2019 09:02
[2019-01-23 09:18] LABS: ALBUMIN 2.7 g/dL (3.4-5.0); DIRECT BILIRUBIN 0.6 mg/dL (0.0-0.2); TOTAL BILIRUBIN 1.4 mg/dL (0.2-1.0)
[2019-01-23 09:23] LABS: PROTHROMBIN TIME PATIENT 31.8 SEC (11.7-14.0)
--- NOTE | 2019-01-23 09:52 | PDOC ---
CARDIOLOGY PROGRESS NOTE SUBJECTIVE: Remains critically ill overnight. Had two episodes of cardiac arrest due to VT/VF. Currently on lidocaine gtt, Dopamine, Levophed INR yesterday 3.6-->7.5-->3.1 after Vit K and FFP He is not responsive but is on sedation. Family at bedside OBJECTIVE: Vital Signs/I&O: AF, RR 37, BP 103/62, HR 120 Objective: He is sedated and non-responsive Heart tones distant. Lungs with severe rhonchi Abd soft No edema. Cool to touch (On rewarming protocol) CURRENT MEDICATIONS: Dopamine, levophed gtts DIAGNOSTIC TESTING: INR 3.1 after FFP and vit K AST/ALT 116/92 Mg 2.3 K 5.1 Device interrogation revealed VT as the inciting event for presentation. Cr 2.0, Hgb 12, Plt 116 EKG: Probable atrial fibrillation with RBBB ASSESSMENT: 1. Cardiogenic shock with refractory VT 2. CAD s/p CABG, patent bypass grafts by cath in 10/2018 (Patent HUTCHISON to LAD/Diag, radial PDA and 50% ISR of LM/OM1 stents) 3. Probable shock liver with coagulopathy 4. Afib with coagulopathy likely due to multiorgan failure 5. New onset ischemic CMP, EF 25% PLAN: 1. Cardiogenic shock/VT/NSTEMI -Due to VT and hx of CABG, plans for cath when he was less coagulopathic. -Discussed r/b/a to cath with the family extensively and they will decide if they wish to pursue cath -Continue lidocaine gtt for VT -Consider procainamide if further VT -He has been at high risk for bleeding due to presenting INR of 3.6 and possible ARDS, therefore treated conservatively w/o hep gtt. Currently with INR of 7.9 responsive to FFP/Vit K -Poor candidate for left ventricular assist device as this could lead significant bleeding problems. -Continue pressors as tolerated. -Could consider IABP or Impella but discussed with family regarding poor prognos is and issues of neurologic recovery. Will follow along. Discussed with his primary hairspring assembler at [facility] as well. TEQUILA YAP MD Jan 23, 2019 09:52
[2019-01-23] MEDS ORDERED: LIDOCAINE 1% Multi-Dose 20 ML VIAL. ONE (10:22)
[2019-01-23] MEDS ORDERED: EPINEPHrine 1 MG/ML VIAL ONE (10:43)
[2019-01-23] MEDS ORDERED: IODIXANOL 320 MG/ML 100 ML VIAL. ONE (11:02)
[2019-01-23] MEDS ORDERED: HEPARIN for IV BOLUS 10,000 UNIT/10 ML VIAL. ONE (11:07)
[2019-01-23] MEDS ORDERED: LIDOCAINE 1% Multi-Dose 20 ML VIAL. INJ ONE (11:15)
[2019-01-23] MEDS ORDERED: IODIXANOL 320 MG/ML 100 ML VIAL. IART ONE (11:15)
[2019-01-23] MEDS ORDERED: HEPARIN for IV BOLUS 10,000 UNIT/10 ML VIAL. IV ONE (11:15)
[2019-01-23] MEDS ORDERED: EPINEPHrine SYRINGE 1 MG/10 ML SYRINGE IV ONE (11:30)
[2019-01-23] MEDS ORDERED: CONTRAST GIVEN. MC PRN (11:30)
[2019-01-23] MEDS ORDERED: CALCIUM CHLORIDE 1,000 MG/10 ML DISP.SYRIN ONE (12:00)
--- NOTE | 2019-01-23 13:04 | NUR ---
[id number] Condition guarded... BP labile,bottoming w slightest change in pressors. No titration of these meds at this time. Code -PEA see code blue sheet for specifics. Return of vitals /circulation .. Communication w Dr Stern. Family informed "on his way in" . Prolonged talk on possible Rx ,outcomes,complication. Permit for cath signed. Dr Stern informed of decision. computer lab para professional assist transport to lab per bed ,full monitor,medications.PEA in lab w return circ/BP after 3-4 rounds CPR. Able to stabilize w heart cath and stent placement to LAD via right groin and placement of IABP left groin. Order changes noted. .. epi gtt started w short lived cardiac and NBP stabilization .3rd episode CT w rate and BP gtt. Dr Stern at bedside. Decision to desist w all life prolonging care. Pronounced at 1310 by 2 RNs per protocol. Waiting for a few family members at this time . Comfort measures provided.
--- NOTE | 2019-01-23 13:31 | PDOC ---
PROGRESS NOTES Chief Complaint Chief Complaint 1. OUT OF HOSP CADIAC ARrest with ROSC (10 mins down time approx) 2. Patchy bilateral airspace disease and cardiomegaly. Findings could be related to pulmonary edema, multifocal infection, or ARDS on pcxr 3. COPD 4. RESP ACIDOSIS/ metabolic acidosis 5, RESP FAILURE, POSSIBLE ASPIRATION// hypercapnic 6. Cardiogenic shock 7. elevated troponin i 8. severe sepsis 9. hyponatremia 10. heat exposure prior to CARDIAC arrest 11. moderate alcohol use 12. remote tobacco abuse History of Present Illness History of Present Illness 4 code blue total to date today (PEA< unstable vtach), 2 codes since 7 AM and I was at bedside for both HYPOTENSIVE, codes despite on epi etc gtt Stat LHC done with stenting and IABP and coded after Multiple fam members, cards has had heavy discussion with them NO response, no corneal, no gag Family after the 4th code today, decides DNR PLAnL Dc abx, PPI etc Cont IABP, epi gtt and pressure support for now, if codes DNR Vitals Vitals Vital Signs Date Time Temp Pulse Resp B/P (MAP) Pulse Ox O2 Delivery O2 Flow Rate FiO2 01/23/19 12:51 100 15.0 01/23/19 11:59 Ventilator 01/23/19 08:42 95.0 94 37 103/62 95.0 Physical Exam Physical Exam GENERAL: Sedated, orally intubated gentleman, not in any distress. VITAL SIGNS: stable HEENT: Both pupils are round and reacting. No conjunctival lesion, no oral lesion. Not much mouth can be visualized due to orally intubated. NECK: Supple, no JVP, no lymphadenopathy. LUNGS: Clear anteriorly. HEART: S1, S2 regular. No gallop or murmur. ABDOMEN: Soft, nontender, no organomegaly. EXTREMITIES: No edema or cyanosis. The patient does have bruising all over the place. The patient is currently not moving any extremities as the patient is sedated on a ventilator. General: Other (sedated) Heart: Other (irreg, irreg, faint pulses) Lungs: Crackles Abdomen: Soft Extremities: No cyanosis Skin: Other Labs LABS Laboratory Tests Test 01/22/19 18:00 01/22/19 18:04 01/22/19 20:33 01/22/19 20:40 White Blood Count 17.0 x10^3/uL (4.0-11.0) Red Blood Count 4.06 x10^6/uL (4.30-5.70) Hemoglobin 12.0 g/dL (13.0-17.5) Hematocrit 36.1 % (39.0-53.0) Mean Corpuscular Volume 89 fL (79-100) Mean Corpuscular Hemoglobin 29 pg (25-35) Mean Corpuscular Hemoglobin Concent 33 g/dL (31-37) Red Cell Distribution Width 17.2 % (11.5-14.5) Platelet Count 116 x10^3/uL (140-400) Neutrophils (%) (Auto) 90 % (31-73) Lymphocytes (%) (Auto) 4 % (24-48) Monocytes (%) (Auto) 6 % (0-9) Eosinophils (%) (Auto) 0 % (0-3) Basophils (%) (Auto) 0 % (0-3) Neutrophils # (Auto) 15.3 x10^3/uL (1.8-7.7) Lymphocytes # (Auto) 0.7 x10^3/uL (1.0-4.8) Monocytes # (Auto) 1.0 x10^3/uL (0.0-1.1) Eosinophils # (Auto) 0.0 x10^3/uL (0.0-0.7) Basophils # (Auto) 0.0 x10^3/uL (0.0-0.2) Prothrombin Time 50.2 SEC (11.7-14.0) Prothromb Time International Ratio 5.5 (0.8-1.1) Activated Partial Thromboplast Time 55 SEC (24-38) Sodium Level 128 mmol/L (136-145) Potassium Level 5.1 mmol/L (3.5-5.1) Chloride Level 96 mmol/L (98-107) Carbon Dioxide Level 23 mmol/L (21-32) Anion Gap 9 (6-14) Blood Urea Nitrogen 20 mg/dL (8-26) Creatinine 1.7 mg/dL (0.7-1.3) Estimated GFR (Cockcroft-Gault) 39.6 Glucose Level 151 mg/dL (70-99) Calcium Level 7.7 mg/dL (8.5-10.1) Magnesium Level 2.4 mg/dL (1.8-2.4) Alkaline Phosphatase 106 U/L (46-116) Glucose (Fingerstick) 137 mg/dL (70-99) 111 mg/dL (70-99) O2 Saturation 98 % (92-99) Arterial Blood pH 7.15 (7.35-7.45) Arterial Blood pH (Temp corrected) 7.20 Arterial Blood pCO2 at Patient Temp 48 mmHg (35-46) Arterial Blood pCO2 (Temp correct) 41 mmHg Arterial Blood pO2 at Patient Temp 155 mmHg (65-108) Arterial Blood pO2 (Temp corrected) 134 mmHg Arterial Blood HCO3 16 mmol/L (21-28) Arterial Blood Base Excess -12 mmol/L (-3-3) FiO2 100 Test 01/23/19 00:58 01/23/19 01:20 01/23/19 01:32 01/23/19 04:00 O2 Saturation 94 % (92-99) Arterial Blood pH 7.25 (7.35-7.45) Arterial Blood pH (Temp corrected) 7.31 Arterial Blood pCO2 at Patient Temp 36 mmHg (35-46) Arterial Blood pCO2 (Temp correct) 30 mmHg Arterial Blood pO2 at Patient Temp 85 mmHg (65-108) Arterial Blood pO2 (Temp corrected) 67 mmHg Arterial Blood HCO3 15 mmol/L (21-28) Arterial Blood Base Excess -11 mmol/L (-3-3) FiO2 100 Potassium Level 4.6 mmol/L (3.5-5.1) 4.5 mmol/L (3.5-5.1) Glucose (Fingerstick) 152 mg/dL (70-99) Prothrombin Time 67.5 SEC (11.7-14.0) Prothromb Time International Ratio 7.9 (0.8-1.1) Sodium Level 129 mmol/L (136-145) Chloride Level 95 mmol/L (98-107) Carbon Dioxide Level 22 mmol/L (21-32) Anion Gap 12 (6-14) Blood Urea Nitrogen 24 mg/dL (8-26) Creatinine 2.0 mg/dL (0.7-1.3) Estimated GFR (Cockcroft-Gault) 32.8 Glucose Level 143 mg/dL (70-99) Calcium Level 7.7 mg/dL (8.5-10.1) Phosphorus Level 5.9 mg/dL (2.6-4.7) Magnesium Level 2.3 mg/dL (1.8-2.4) Total Bilirubin 1.4 mg/dL (0.2-1.0) Direct Bilirubin 0.6 mg/dL (0.0-0.2) Aspartate Amino Transf (AST/SGOT) 116 U/L (15-37) Alanine Aminotransferase (ALT/SGPT) 92 U/L (16-63) Alkaline Phosphatase 100 U/L (46-116) Total Protein 6.0 g/dL (6.4-8.2) Albumin 2.7 g/dL (3.4-5.0) Procalcitonin 3.97 ng/mL (0.00-0.10) Test 01/23/19 07:50 01/23/19 08:20 01/23/19 09:00 O2 Saturation 97 % (92-99) Arterial Blood pH 7.35 (7.35-7.45) Arterial Blood pCO2 at Patient Temp 33 mmHg (35-46) Arterial Blood pO2 at Patient Temp 96 mmHg (65-108) Arterial Blood HCO3 18 mmol/L (21-28) Arterial Blood Base Excess -7 mmol/L (-3-3) FiO2 100 Glucose (Fingerstick) 154 mg/dL (70-99) Prothrombin Time 31.8 SEC (11.7-14.0) Prothromb Time International Ratio 3.1 (0.8-1.1) Review of Systems Review of Systems no response. CC 40 Assessment and Plan Assessmemt and Plan Problems Medical Problems: (1) Acute on chronic systolic heart failure Status: Acute (2) Cardiac arrest with ventricular fibrillation Status: Acute (3) COPD (chronic obstructive pulmonary disease) Status: Chronic (4) Hyponatremia Status: Acute (5) Pulmonary hypertension Status: Chronic (6) Respiratory failure Status: Acute (7) Severe sepsis Status: Acute Comment Review of Relevant I have reviewed the following items devan (where applicable) has been applied. Labs Laboratory Tests Test 01/21/19 20:24 01/21/19 20:40 01/21/19 20:42 01/21/19 20:47 Glucose (Fingerstick) 112 mg/dL (70-99) O2 Saturation 90 % (92-99) Arterial Blood pH 7.00 (7.35-7.45) Arterial Blood pCO2 at Patient Temp 52 mmHg (35-46) Arterial Blood pO2 at Patient Temp 92 mmHg (65-108) Arterial Blood HCO3 13 mmol/L (21-28) Arterial Blood Base Excess -19 mmol/L (-3-3) Oxyhemoglobin 89.3 % Methemoglobin 0.6 % (0.0-1.9) Carbon Monoxide, Quantitative 0.3 % (0.0-1.9) FiO2 100 Bedside Troponin I 0.43 ng/ml (<0.08) Bedside Hemoglobin 13.3 g/dL (14-18) Bedside Hematocrit 39 % (37-52) Bedside Sodium 122 mmol/L (135-145) Bedside Potassium 4.0 mmol/L (3.5-5.0) Bedside Chloride 94 mmol/L (98-110) Bedside Total CO2 17 mmol/L (23-32) Anion Gap 16 mmol/L (6-14) Bedside Blood Urea Nitrogen 9 mg/dL (8-26) Bedside Creatinine 1.2 mg/dL (0.5-1.4) Glucose Level 126 mg/dL (70-99) Bedside Ionized Calcium (Amada) 0.93 mmol/L (1.13-1.32) Test 01/21/19 21:46 01/21/19 23:03 01/21/19 23:20 01/21/19 23:31 O2 Saturation 85 % (92-99) 96 % (92-99) Arterial Blood pH 7.09 (7.35-7.45) 7.22 (7.35-7.45) Arterial Blood pCO2 at Patient Temp 56 mmHg (35-46) 37 mmHg (35-46) Arterial Blood pO2 at Patient Temp 72 mmHg (65-108) 106 mmHg (65-108) Arterial Blood HCO3 17 mmol/L (21-28) 15 mmol/L (21-28) Arterial Blood Base Excess -14 mmol/L (-3-3) -12 mmol/L (-3-3) FiO2 100 100 Arterial Blood pH (Temp corrected) 7.26 Arterial Blood pCO2 (Temp correct) 33 mmHg Arterial Blood pO2 (Temp corrected) 91 mmHg Oxyhemoglobin 95.0 % Methemoglobin 0.3 % (0.0-1.9) Carbon Monoxide, Quantitative 0.5 % (0.0-1.9) White Blood Count 21.0 x10^3/uL (4.0-11.0) Red Blood Count 4.06 x10^6/uL (4.30-5.70) Hemoglobin 12.1 g/dL (13.0-17.5) Hematocrit 36.4 % (39.0-53.0) Mean Corpuscular Volume 90 fL (79-100) Mean Corpuscular Hemoglobin 30 pg (25-35) Mean Corpuscular Hemoglobin Concent 33 g/dL (31-37) Red Cell Distribution Width 17.5 % (11.5-14.5) Platelet Count 157 x10^3/uL (140-400) Neutrophils (%) (Auto) 88 % (31-73) Lymphocytes (%) (Auto) 4 % (24-48) Monocytes (%) (Auto) 7 % (0-9) Eosinophils (%) (Auto) 0 % (0-3) Basophils (%) (Auto) 0 % (0-3) Neutrophils # (Auto) 18.5 x10^3/uL (1.8-7.7) Lymphocytes # (Auto) 0.9 x10^3/uL (1.0-4.8) Monocytes # (Auto) 1.4 x10^3/uL (0.0-1.1) Eosinophils # (Auto) 0.1 x10^3/uL (0.0-0.7) Basophils # (Auto) 0.1 x10^3/uL (0.0-0.2) Segmented Neutrophils % 63 % (35-66) Band Neutrophils % 22 % (0-9) Lymphocytes % 7 % (24-48) Monocytes % 4 % (0-10) Metamyelocytes % 2 % (0-0) Myelocytes % 1 % (0-0) Promyelocytes % 1 % (0-0) Toxic Granulation Slight Platelet Estimate Adequate (ADEQUATE) Anisocytosis Slight Prothrombin Time 35.8 SEC (11.7-14.0) Prothromb Time International Ratio 3.6 (0.8-1.1) Sodium Level 126 mmol/L (136-145) Potassium Level 5.6 mmol/L (3.5-5.1) Chloride Level 92 mmol/L (98-107) Carbon Dioxide Level 20 mmol/L (21-32) Anion Gap 14 (6-14) Blood Urea Nitrogen 12 mg/dL (8-26) Creatinine 1.2 mg/dL (0.7-1.3) Estimated GFR (Cockcroft-Gault) 59.2 BUN/Creatinine Ratio 10 (6-20) Glucose Level 134 mg/dL (70-99) Lactic Acid Level 3.7 mmol/L (0.4-2.0) Calcium Level 7.2 mg/dL (8.5-10.1) Phosphorus Level 6.8 mg/dL (2.6-4.7) Magnesium Level 1.5 mg/dL (1.8-2.4) Total Bilirubin 0.9 mg/dL (0.2-1.0) Aspartate Amino Transf (AST/SGOT) 225 U/L (15-37) Alanine Aminotransferase (ALT/SGPT) 125 U/L (16-63) Alkaline Phosphatase 151 U/L (46-116) Creatine Kinase 733 U/L (39-308) Creatine Kinase MB (Mass) 28.2 ng/mL (0.0-3.6) Creatine Kinase MB Relative Index 3.8 % (0-4) Troponin I Quantitative 4.112 ng/mL (0.000-0.055) C-Reactive Protein, Quantitative 5.8 mg/L (0-3.3) [id number]-Type Natriuretic Peptide 3826 pg/mL (0-124) Total Protein 6.1 g/dL (6.4-8.2) Albumin 3.1 g/dL (3.4-5.0) Albumin/Globulin Ratio 1.0 (1.0-1.7) Lipase 86 U/L (73-393) Procalcitonin 0.16 ng/mL (0.00-0.10) Thyroid Stimulating Hormone (TSH) 1.556 uIU/mL (0.358-3.74) Glucose (Fingerstick) 114 mg/dL (70-99) Test 01/22/19 03:15 01/22/19 05:38 01/22/19 05:40 01/22/19 09:15 Nasal Screen MRSA (PCR) Negative (Negative) Glucose (Fingerstick) 149 mg/dL (70-99) Sodium Level 125 mmol/L (136-145) Potassium Level 4.0 mmol/L (3.5-5.1) Chloride Level 94 mmol/L (98-107) Carbon Dioxide Level 18 mmol/L (21-32) Anion Gap 13 (6-14) Blood Urea Nitrogen 15 mg/dL (8-26) Creatinine 1.3 mg/dL (0.7-1.3) Estimated GFR (Cockcroft-Gault) 54.0 BUN/Creatinine Ratio 12 (6-20) Glucose Level 143 mg/dL (70-99) Calcium Level 7.1 mg/dL (8.5-10.1) Total Bilirubin 1.1 mg/dL (0.2-1.0) Aspartate Amino Transf (AST/SGOT) 198 U/L (15-37) Alanine Aminotransferase (ALT/SGPT) 112 U/L (16-63) Alkaline Phosphatase 125 U/L (46-116) Troponin I Quantitative 7.800 ng/mL (0.000-0.055) Total Protein 5.9 g/dL (6.4-8.2) Albumin 2.9 g/dL (3.4-5.0) Albumin/Globulin Ratio 1.0 (1.0-1.7) Triglycerides Level 56 mg/dL (0-150) Cholesterol Level 90 mg/dL (0-200) LDL Cholesterol, Calculated 6 mg/dL (0-100) VLDL Cholesterol, Calculated 11 mg/dL (0-40) Non-HDL Cholesterol Calculated 17 mg/dL (0-129) HDL Cholesterol 73 mg/dL (40-60) Cholesterol/HDL Ratio 1.2 O2 Saturation 93 % (92-99) Arterial Blood pH 7.29 (7.35-7.45) Arterial Blood pCO2 at Patient Temp 37 mmHg (35-46) Arterial Blood pO2 at Patient Temp 78 mmHg (65-108) Arterial Blood HCO3 17 mmol/L (21-28) Arterial Blood Base Excess -9 mmol/L (-3-3) FiO2 100 Test 01/22/19 18:00 01/22/19 18:04 01/22/19 20:33 01/22/19 20:40 White Blood Count 17.0 x10^3/uL (4.0-11.0) Red Blood Count 4.06 x10^6/uL (4.30-5.70) Hemoglobin 12.0 g/dL (13.0-17.5) Hematocrit 36.1 % (39.0-53.0) Mean Corpuscular Volume 89 fL (79-100) Mean Corpuscular Hemoglobin 29 pg (25-35) Mean Corpuscular Hemoglobin Concent 33 g/dL (31-37) Red Cell Distribution Width 17.2 % (11.5-14.5) Platelet Count 116 x10^3/uL (140-400) Neutrophils (%) (Auto) 90 % (31-73) Lymphocytes (%) (Auto) 4 % (24-48) Monocytes (%) (Auto) 6 % (0-9) Eosinophils (%) (Auto) 0 % (0-3) Basophils (%) (Auto) 0 % (0-3) Neutrophils # (Auto) 15.3 x10^3/uL (1.8-7.7) Lymphocytes # (Auto) 0.7 x10^3/uL (1.0-4.8) Monocytes # (Auto) 1.0 x10^3/uL (0.0-1.1) Eosinophils # (Auto) 0.0 x10^3/uL (0.0-0.7) Basophils # (Auto) 0.0 x10^3/uL (0.0-0.2) Prothrombin Time 50.2 SEC (11.7-14.0) Prothromb Time International Ratio 5.5 (0.8-1.1) Activated Partial Thromboplast Time 55 SEC (24-38) Sodium Level 128 mmol/L (136-145) Potassium Level 5.1 mmol/L (3.5-5.1) Chloride Level 96 mmol/L (98-107) Carbon Dioxide Level 23 mmol/L (21-32) Anion Gap 9 (6-14) Blood Urea Nitrogen 20 mg/dL (8-26) Creatinine 1.7 mg/dL (0.7-1.3) Estimated GFR (Cockcroft-Gault) 39.6 Glucose Level 151 mg/dL (70-99) Calcium Level 7.7 mg/dL (8.5-10.1) Magnesium Level 2.4 mg/dL (1.8-2.4) Alkaline Phosphatase 106 U/L (46-116) Glucose (Fingerstick) 137 mg/dL (70-99) 111 mg/dL (70-99) O2 Saturation 98 % (92-99) Arterial Blood pH 7.15 (7.35-7.45) Arterial Blood pH (Temp corrected) 7.20 Arterial Blood pCO2 at Patient Temp 48 mmHg (35-46) Arterial Blood pCO2 (Temp correct) 41 mmHg Arterial Blood pO2 at Patient Temp 155 mmHg (65-108) Arterial Blood pO2 (Temp corrected) 134 mmHg Arterial Blood HCO3 16 mmol/L (21-28) Arterial Blood Base Excess -12 mmol/L (-3-3) FiO2 100 Test 01/23/19 00:58 01/23/19 01:20 01/23/19 01:32 01/23/19 04:00 O2 Saturation 94 % (92-99) Arterial Blood pH 7.25 (7.35-7.45) Arterial Blood pH (Temp corrected) 7.31 Arterial Blood pCO2 at Patient Temp 36 mmHg (35-46) Arterial Blood pCO2 (Temp correct) 30 mmHg Arterial Blood pO2 at Patient Temp 85 mmHg (65-108) Arterial Blood pO2 (Temp corrected) 67 mmHg Arterial Blood HCO3 15 mmol/L (21-28) Arterial Blood Base Excess -11 mmol/L (-3-3) FiO2 100 Potassium Level 4.6 mmol/L (3.5-5.1) 4.5 mmol/L (3.5-5.1) Glucose (Fingerstick) 152 mg/dL (70-99) Prothrombin Time 67.5 SEC (11.7-14.0) Prothromb Time International Ratio 7.9 (0.8-1.1) Sodium Level 129 mmol/L (136-145) Chloride Level 95 mmol/L (98-107) Carbon Dioxide Level 22 mmol/L (21-32) Anion Gap 12 (6-14) Blood Urea Nitrogen 24 mg/dL (8-26) Creatinine 2.0 mg/dL (0.7-1.3) Estimated GFR (Cockcroft-Gault) 32.8 Glucose Level 143 mg/dL (70-99) Calcium Level 7.7 mg/dL (8.5-10.1) Phosphorus Level 5.9 mg/dL (2.6-4.7) Magnesium Level 2.3 mg/dL (1.8-2.4) Total Bilirubin 1.4 mg/dL (0.2-1.0) Direct Bilirubin 0.6 mg/dL (0.0-0.2) Aspartate Amino Transf (AST/SGOT) 116 U/L (15-37) Alanine Aminotransferase (ALT/SGPT) 92 U/L (16-63) Alkaline Phosphatase 100 U/L (46-116) Total Protein 6.0 g/dL (6.4-8.2) Albumin 2.7 g/dL (3.4-5.0) Procalcitonin 3.97 ng/mL (0.00-0.10) Test 01/23/19 07:50 01/23/19 08:20 01/23/19 09:00 O2 Saturation 97 % (92-99) Arterial Blood pH 7.35 (7.35-7.45) Arterial Blood pCO2 at Patient Temp 33 mmHg (35-46) Arterial Blood pO2 at Patient Temp 96 mmHg (65-108) Arterial Blood HCO3 18 mmol/L (21-28) Arterial Blood Base Excess -7 mmol/L (-3-3) FiO2 100 Glucose (Fingerstick) 154 mg/dL (70-99) Prothrombin Time 31.8 SEC (11.7-14.0) Prothromb Time International Ratio 3.1 (0.8-1.1) Laboratory Tests Test 01/22/19 18:00 01/22/19 18:04 01/22/19 20:33 01/22/19 20:40 White Blood Count 17.0 x10^3/uL (4.0-11.0) Red Blood Count 4.06 x10^6/uL (4.30-5.70) Hemoglobin 12.0 g/dL (13.0-17.5) Hematocrit 36.1 % (39.0-53.0) Mean Corpuscular Volume 89 fL (79-100) Mean Corpuscular Hemoglobin 29 pg (25-35) Mean Corpuscular Hemoglobin Concent 33 g/dL (31-37) Red Cell Distribution Width 17.2 % (11.5-14.5) Platelet Count 116 x10^3/uL (140-400) Neutrophils (%) (Auto) 90 % (31-73) Lymphocytes (%) (Auto) 4 % (24-48) Monocytes (%) (Auto) 6 % (0-9) Eosinophils (%) (Auto) 0 % (0-3) Basophils (%) (Auto) 0 % (0-3) Neutrophils # (Auto) 15.3 x10^3/uL (1.8-7.7) Lymphocytes # (Auto) 0.7 x10^3/uL (1.0-4.8) Monocytes # (Auto) 1.0 x10^3/uL (0.0-1.1) Eosinophils # (Auto) 0.0 x10^3/uL (0.0-0.7) Basophils # (Auto) 0.0 x10^3/uL (0.0-0.2) Prothrombin Time 50.2 SEC (11.7-14.0) Prothromb Time International Ratio 5.5 (0.8-1.1) Activated Partial Thromboplast Time 55 SEC (24-38) Sodium Level 128 mmol/L (136-145) Potassium Level 5.1 mmol/L (3.5-5.1) Chloride Level 96 mmol/L (98-107) Carbon Dioxide Level 23 mmol/L (21-32) Anion Gap 9 (6-14) Blood Urea Nitrogen 20 mg/dL (8-26) Creatinine 1.7 mg/dL (0.7-1.3) Estimated GFR (Cockcroft-Gault) 39.6 Glucose Level 151 mg/dL (70-99) Calcium Level 7.7 mg/dL (8.5-10.1) Magnesium Level 2.4 mg/dL (1.8-2.4) Alkaline Phosphatase 106 U/L (46-116) Glucose (Fingerstick) 137 mg/dL (70-99) 111 mg/dL (70-99) O2 Saturation 98 % (92-99) Arterial Blood pH 7.15 (7.35-7.45) Arterial Blood pH (Temp corrected) 7.20 Arterial Blood pCO2 at Patient Temp 48 mmHg (35-46) Arterial Blood pCO2 (Temp correct) 41 mmHg Arterial Blood pO2 at Patient Temp 155 mmHg (65-108) Arterial Blood pO2 (Temp corrected) 134 mmHg Arterial Blood HCO3 16 mmol/L (21-28) Arterial Blood Base Excess -12 mmol/L (-3-3) FiO2 100 Test 01/23/19 00:58 01/23/19 01:20 01/23/19 01:32 01/23/19 04:00 O2 Saturation 94 % (92-99) Arterial Blood pH 7.25 (7.35-7.45) Arterial Blood pH (Temp corrected) 7.31 Arterial Blood pCO2 at Patient Temp 36 mmHg (35-46) Arterial Blood pCO2 (Temp correct) 30 mmHg Arterial Blood pO2 at Patient Temp 85 mmHg (65-108) Arterial Blood pO2 (Temp corrected) 67 mmHg Arterial Blood HCO3 15 mmol/L (21-28) Arterial Blood Base Excess -11 mmol/L (-3-3) FiO2 100 Potassium Level 4.6 mmol/L (3.5-5.1) 4.5 mmol/L (3.5-5.1) Glucose (Fingerstick) 152 mg/dL (70-99) Prothrombin Time 67.5 SEC (11.7-14.0) Prothromb Time International Ratio 7.9 (0.8-1.1) Sodium Level 129 mmol/L (136-145) Chloride Level 95 mmol/L (98-107) Carbon Dioxide Level 22 mmol/L (21-32) Anion Gap 12 (6-14) Blood Urea Nitrogen 24 mg/dL (8-26) Creatinine 2.0 mg/dL (0.7-1.3) Estimated GFR (Cockcroft-Gault) 32.8 Glucose Level 143 mg/dL (70-99) Calcium Level 7.7 mg/dL (8.5-10.1) Phosphorus Level 5.9 mg/dL (2.6-4.7) Magnesium Level 2.3 mg/dL (1.8-2.4) Total Bilirubin 1.4 mg/dL (0.2-1.0) Direct Bilirubin 0.6 mg/dL (0.0-0.2) Aspartate Amino Transf (AST/SGOT) 116 U/L (15-37) Alanine Aminotransferase (ALT/SGPT) 92 U/L (16-63) Alkaline Phosphatase 100 U/L (46-116) Total Protein 6.0 g/dL (6.4-8.2) Albumin 2.7 g/dL (3.4-5.0) Procalcitonin 3.97 ng/mL (0.00-0.10) Test 01/23/19 07:50 01/23/19 08:20 01/23/19 09:00 O2 Saturation 97 % (92-99) Arterial Blood pH 7.35 (7.35-7.45) Arterial Blood pCO2 at Patient Temp 33 mmHg (35-46) Arterial Blood pO2 at Patient Temp 96 mmHg (65-108) Arterial Blood HCO3 18 mmol/L (21-28) Arterial Blood Base Excess -7 mmol/L (-3-3) FiO2 100 Glucose (Fingerstick) 154 mg/dL (70-99) Prothrombin Time 31.8 SEC (11.7-14.0) Prothromb Time International Ratio 3.1 (0.8-1.1) Microbiology 01/22/19 Blood Culture - Preliminary, Resulted NO GROWTH AFTER 1 DAY Medications Current Medications Sodium Chloride 1,000 ml @ 1,000 mls/hr 1X ONCE IV Last administered on 01/22/19 00:16; Start 01/21/19 at 21:00; Stop 01/21/19 at 21:59; Status DC Dopamine HCl/ Dextrose 250 ml @ 5.762 mls/ hr 1X ONCE IV Last administered on 01/22/19at 00:17; Start 01/21/19 at 21:15; Stop 01/23/19 at 16:38 Epinephrine HCl (EPINEPHrine SYRINGE) 1 mg 1X ONCE IV Last administered on 01/22/19 00:16; Start 01/21/19 at 21:15; Stop 01/21/19 at 21:16; Status DC Epinephrine HCl (EPINEPHrine SYRINGE) 1 mg 1X ONCE IV Last administered on 01/22/19 00:16; Start 01/21/19 at 21:15; Stop 01/21/19 at 21:16; Status DC Epinephrine HCl (EPINEPHrine SYRINGE) 1 mg 1X ONCE IV Last administered on 01/22/19at 00:16; Start 01/21/19 at 21:15; Stop 01/21/19 at 21:16; Status DC Ondansetron HCl (Zofran) 4 mg PRN Q8HRS PRN IV NAUSEA/VOMITING; Start 01/21/19 at 21:00; Stop 01/22/19 at 20:59; Status DC Fentanyl Citrate (Fentanyl 2ml Vial) 25 mcg PRN Q1HR PRN IV SEE COMMENTS; Start 01/21/19 at 21:00 Fentanyl Citrate (Fentanyl 2ml Vial) 50 mcg PRN Q1HR PRN IV SEE COMMENTS Last administered on 01/22/19at 00:24; Start 01/21/19 at 21:00 Chlorhexidine Gluconate (Peridex) 15 ml BID MM Last administered on 01/22/19at 22:48; Start 01/21/19 at 21:15 Famotidine (Pepcid Vial) 20 mg BID IVP ; Start 01/21/19 at 21:15; Stop 01/21/19 at 22:49; Status DC Sodium Bicarbonate (Sodium Bicarb Adult 8.4% Syr) 50 meq 1X ONCE IV Last administered on 01/22/19at 00:16; Start 01/21/19 at 21:15; Stop 01/21/19 at 21:16; Status DC Midazolam HCl (Versed) 5 mg 1X ONCE IV ; Start 01/21/19 at 21:30; Stop 01/21/19 at 21:31; Status DC Fentanyl Citrate (Fentanyl 2ml Vial) 100 mcg 1X ONCE IV Last administered on 01/22/19at 00:16; Start 01/21/19 at 21:30; Stop 01/21/19 at 21:31; Status DC Propofol 100 ml @ 1.152 mls/ hr CONT PRN IV SEE I/O RECORD Last administered on 01/22/19at 00:24; Start 01/21/19 at 21:30 Fentanyl Citrate (Fentanyl 2ml Vial) 100 mcg STK-MED ONCE .ROUTE ; Start 01/21/19 at 21:29; Stop 01/21/19 at 21:29; Status DC Vancomycin HCl (Vanco Per Pharmacy) 1 each PRN DAILY PRN MC SEE COMMENTS Last administered on 01/22/19at 01:21; Start 01/21/19 at 22:45; Stop 01/22/19 at 08:15; Status DC Ondansetron HCl (Zofran) 4 mg PRN Q6HRS PRN IV NAUSEA/VOMITING; Start 01/21/19 at 22:45 Famotidine (Pepcid Vial) 20 mg BID IVP ; Start 01/22/19 at 09:00; Stop 01/22/19 at 10:24; Status DC Info (Icu Electrolyte Protocol) 1 ea DAILY MC ; Start 01/22/19 at 09:00 Heparin Sodium (Porcine) (Heparin Sodium) 5,000 unit Q8HRS SQ ; Start 01/22/19 at 06:00; Stop 01/23/19 at 08:14; Status DC Sodium Chloride (Normal Saline Flush) 3 ml QSHIFT PRN IV AFTER MEDS AND BLOOD DRAWS; Start 01/21/19 at 22:45 Vancomycin HCl 2 gm/Sodium Chloride 500 ml @ 250 mls/hr 1X ONCE IV Last administered on 01/22/19at 00:59; Start 01/21/19 at 23:00; Stop 01/22/19 at 00:59; Status DC Levofloxacin/ Dextrose 100 ml @ 100 mls/hr 1X ONCE IV Last administered on 01/22/19at 00:59; Start 01/21/19 at 23:00; Stop 01/21/19 at 23:59; Status DC Linezolid/Dextrose 300 ml @ 300 mls/hr Q12HR IV ; Start 01/22/19 at 09:00; Status UNV Clindamycin Phosphate 50 ml @ 100 mls/hr Q8HRS IV Last administered on 01/22/19at 05:32; Start 01/22/19 at 06:00; Stop 01/22/19 at 08:15; Status DC Sodium Chloride 1,000 ml @ 1,000 mls/hr 1X ONCE IV Last administered on 01/22/19at 00:23; Start 01/22/19 at 00:15; Stop 01/22/19 at 01:14; Status DC Sodium Chloride 1,000 ml @ 125 mls/hr 1X ONCE IV Last administered on 01/22/19at 00:22; Start 01/22/19 at 00:15; Stop 01/22/19 at 08:14; Status DC Midazolam HCl 100 ml @ 5 mls/hr CONT PRN IV SEE I/O RECORD Last administered on 01/22/19at 19:24; Start 01/22/19 at 00:30 Magnesium Sulfate/ Dextrose 100 ml @ 100 mls/hr 1X ONCE IV Last administered on 01/22/19at 00:59; Start 01/22/19 at 01:00; Stop 01/22/19 at 01:59; Status DC Buspirone HCl (Buspar) 30 mg Q8H NG Last administered on 01/22/19at 01:12; Start 01/22/19 at 01:00; Stop 01/23/19 at 17:01 Acetaminophen (Tylenol) 650 mg Q4HRS NG Last administered on 01/22/19 22:48; Start 01/22/19 at 00:30 Artificial Tears (Artificial Tears) 1 drop Q6HRS OU Last administered on 01/23/19 06:39; Start 01/22/19 at 06:00 Artificial Tears (Artificial Tears) 1 drop PRN Q15MIN PRN OU DRY EYE; Start 01/22/19 at 00:30 Pantoprazole Sodium (PROTONIX VIAL for IV PUSH) 40 mg DAILY IVP Last administered on 01/23/19 09:40; Start 01/22/19 at 09:00 Fentanyl Citrate 30 ml @ 0 mls/hr CONT PRN IV PER PROTOCOL. Last administered on 01/23/19 09:40; Start 01/22/19 at 01:00 Vecuronium [place] (Norcuron Bolus) 8 mg PRN Q1HR PRN IV SHIVERING; Start 01/22/19 at 00:30 Aspirin (Aspirin Rectal Supp) 300 mg 1X ONCE DE Last administered on 01/22/19 00:59; Start 01/22/19 at 01:00; Stop 01/22/19 at 01:01; Status DC Vancomycin HCl 1 gm/Sodium Chloride 250 ml @ 250 mls/hr Q12H IV ; Start 01/22/19 at 13:00; Stop 01/22/19 at 08:15; Status DC Vancomycin HCl (Vancomycin Trough Level) 1 each 1X ONCE MC ; Start 01/23/19 at 12:30; Stop 01/23/19 at 12:31; Status Cancel Meropenem 500 mg/ Sodium Chloride 50 ml @ 100 mls/hr Q8HRS IV Last administered on 01/23/19at 06:39; Start 01/22/19 at 14:00 Acetaminophen (Tylenol) 650 mg PRN Q6HRS PRN PEG MILD PAIN / TEMP; Start 01/22/19 at 09:45 Magnesium Sulfate 50 ml @ 25 mls/hr 1X ONCE IV Last administered on 01/22/19at 11:53; Start 01/22/19 at 11:00; Stop 01/22/19 at 12:59; Status DC Dopamine HCl/ Dextrose 250 ml @ 5.749 mls/ hr CONT PRN IV SEE I/O RECORD Last administered on 01/22/19at 23:25; Start 01/22/19 at 11:45 Sodium Chloride (Iv Sodium Chloride 0.9% 50ml) 25 ml CONT IV ; Start 01/22/19 at 11:45; Status UNV Sodium Chloride 1,000 ml @ 25 mls/hr Q24H IV Last administered on 01/22/19at 14:47; Start 01/22/19 at 12:00 Phytonadione (Mephyton Oral Soln) 10 mg 1X ONCE PO Last administered on 01/22/19at 18:50; Start 01/22/19 at 19:00; Stop 01/22/19 at 19:01; Status DC Phytonadione (Mephyton Oral Soln) 5 mg 1X ONCE PO Last administered on 01/22/19at 20:09; Start 01/22/19 at 20:00; Stop 01/22/19 at 20:01; Status DC Norepinephrine Bitartrate 250 ml @ 14.373 mls/ hr CONT PRN IV SEE I/O RECORD Last administered on 01/23/19at 08:28; Start 01/22/19 at 20:45 Sodium Bicarbonate (Sodium Bicarb Adult 8.4% Syr) 50 meq 1X ONCE IV Last administered on 01/22/19at 22:41; Start 01/22/19 at 21:45; Stop 01/22/19 at 21:46; Status DC Sodium Bicarbonate 150 meq/Sterile Water 1,150 ml @ 75 mls/hr [id number] IV Last administered on 01/22/19at 22:25; Start 01/22/19 at 22:00 Lidocaine HCl/ Dextrose 500 ml @ 0 mls/hr CONT PRN IV SEE I/O RECORD Last administered on 01/23/19at 06:26; Start 01/23/19 at 06:00 Lidocaine HCl (Lidocaine HCl 2% Abboject) 50 mg 1X ONCE IV ; Start 01/23/19 at 06:00; Stop 01/23/19 at 05:58; Status DC Lidocaine HCl (Lidocaine HCl 2% Abboject) 75 mg 1X ONCE IV Last administered on 01/23/19at 06:26; Start 01/23/19 at 06:00; Stop 01/23/19 at 06:01; Status DC Lidocaine HCl (Lidocaine 1% 20ml Vial) 20 ml STK-MED ONCE .ROUTE ; Start 01/23/19 at 10:22; Stop 01/23/19 at 10:22; Status DC Epinephrine HCl (Adrenalin) 1 mg STK-MED ONCE .ROUTE ; Start 01/23/19 at 10:43; Stop 01/23/19 at 10:43; Status DC Iodixanol (Visipaque 320) 100 ml STK-MED ONCE .ROUTE ; Start 01/23/19 at 11:02; Stop 01/23/19 at 11:02; Status DC Heparin Sodium (Porcine) (Heparin Sodium) 10,000 unit STK-MED ONCE .ROUTE ; Start 01/23/19 at 11:07; Stop 01/23/19 at 11:07; Status DC Heparin Sodium/ Sodium Chloride 500 ml @ As Directed STK-MED ONCE .ROUTE ; Start 01/23/19 at 11:11; Stop 01/23/19 at 11:11; Status DC Heparin Sodium/ Sodium Chloride (HEPARIN for ARTERIAL LINE FLUSH) 1,000 unit 1X ONCE IART Last administered on 01/23/19at 11:32; Start 01/23/19 at 11:15; Stop 01/23/19 at 11:19; Status DC Heparin Sodium/ Sodium Chloride (HEPARIN for ARTERIAL LINE FLUSH) 1,000 unit 1X ONCE IART Last administered on 01/23/19at 11:32; Start 01/23/19 at 11:15; Stop 01/23/19 at 11:19; Status DC Iodixanol (Visipaque 320) 100 ml 1X ONCE IART Last administered on 01/23/19at 11:37; Start 01/23/19 at 11:15; Stop 01/23/19 at 11:19; Status DC Heparin Sodium (Porcine) (Heparin Sodium) 4,000 unit 1X ONCE IV Last administered on 01/23/19at 11:37; Start 01/23/19 at 11:15; Stop 01/23/19 at 11:19; Status DC Lidocaine HCl (Lidocaine 1% 20ml Vial) 20 ml 1X ONCE INJ ; Start 01/23/19 at 11:15; Stop 01/23/19 at 11:19; Status DC Heparin Sodium (Porcine) (Heparin 5,000 Units/1,000ml NS) 5,000 unit 1X ONCE IV Last administered on 01/23/19at 11:37; Start 01/23/19 at 11:15; Stop 01/23/19 at 11:19; Status DC Info (CONTRAST GIVEN -- Rx MONITORING) 1 each PRN DAILY PRN MC SEE COMMENTS; Start 01/23/19 at 11:30; Stop 01/25/19 at 11:29 Epinephrine HCl (EPINEPHrine SYRINGE) 2 mg 1X ONCE IV Last administered on 01/23/19at 11:37; Start 01/23/19 at 11:30; Stop 01/23/19 at 11:31; Status DC Heparin Sodium/ Sodium Chloride 500 ml @ As Directed STK-MED ONCE .ROUTE ; Start 01/23/19 at 11:30; Stop 01/23/19 at 11:30; Status DC Epinephrine HCl 4 mg/Sodium Chloride 254 ml @ 29.25 mls/ hr CONT PRN IV SEE I/O RECORD; Start 01/23/19 at 12:00 Active Scripts Active Reported Fish Oil 1,000 Mg Capsule ([place]-3 Fatty Acids/Fish Oil) 1 Each Capsule 1 Each PO DAILY Clopidogrel (Clopidogrel Bisulfate) 75 Mg Tablet 1 Tab PO DAILY Aspirin 81 Mg Tab.chew 1 Tab PO DAILY Warfarin Sodium 2.5 Mg Tablet 2.5 Mg PO DAILY Warfarin Sodium 5 Mg Tablet 5 Mg PO DAILY Spironolactone 25 Mg Tablet 1 Tab PO DAILY Metoprolol Tartrate 100 Mg Tablet 1.5 Tab PO DAILY Lipitor (Atorvastatin Calcium) 80 Mg Tablet 1 Tab PO DAILY Protonix (Pantoprazole Sodium) 20 Mg Tablet.dr 2 Tab PO DAILY Mag-Oxide (Magnesium Oxide) 400 Mg Tablet 1 Tab PO DAILY Multivitamins (Multivitamin) 1 Each Tablet 1 Tab PO DAILY Albuterol Sulfate Conc Neb Soln (Albuterol Sulfate) 2.5 Mg/0.5 Ml Vial.neb 1 V ial NEB Q6HRS Zyrtec (Cetirizine Hcl) 10 Mg Tablet 1 Tab PO DAILY Advair 100-50 Diskus (Fluticasone/Salmeterol) 1 Each Disk.w.dev 1 Puff IH BID NITROGLYCERIN SubLingual (Nitroglycerin) 0.4 Mg Tab.subl 0.4 Mg SL PRN Q5MIN PRN Vitals/I & O Vital Sign - Last 24 Hours 01/22/19 01/22/19 01/22/19 01/22/19 13:30 14:00 14:00 14:30 Temp 93.0 Pulse 58 58 58 Resp 27 27 27 B/P (MAP) 135/69 (91) 123/67 (85) 119/67 (84) Pulse Ox 100 100 93 01/22/19 01/22/19 01/22/19 01/22/19 15:00 15:00 15:17 16:00 Temp 95.0 Pulse 58 Resp 27 B/P (MAP) 112/52 (72) Pulse Ox 94 O2 Delivery Ventilator Mechanical Ventilator 01/22/19 01/22/19 01/22/19 01/22/19 16:00 16:00 17:00 17:00 Temp 93.0 Pulse 68 68 Resp 27 28 B/P (MAP) 138/63 (88) 86/53 (64) Pulse Ox 100 100 01/22/19 01/22/19 01/22/19 01/22/19 18:00 18:00 18:30 19:00 Temp 92.0 92.3 92.3 Pulse 68 68 68 Resp 28 B/P (MAP) 113/67 (82) 143/80 (101) 130/71 (90) Pulse Ox 100 100 100 O2 Delivery Ventilator 01/22/19 01/22/19 01/22/19 01/22/19 19:00 19:39 20:00 20:00 Temp 92.3 Pulse 68 Resp 28 B/P (MAP) 80/46 (57) Pulse Ox 100 97 O2 Delivery Ventilator Ventilator Mechanical Ventilator Ventilator 01/22/19 01/22/19 01/22/19 01/22/19 20:00 20:35 20:45 20:56 Temp 92.3 Pulse 154 100 Resp 36 36 B/P (MAP) 194/91 (125) 112/68 (83) Pulse Ox 83 100 98 O2 Delivery Ventilator Ventilator Ventilator Ventilator 01/22/19 01/22/19 01/22/19 01/22/19 21:00 21:00 21:30 21:47 Temp 92.3 Pulse 94 102 Resp 36 36 18 B/P (MAP) 68/61 (63) 143/93 (110) Pulse Ox 93 98 98 O2 Delivery Ventilator Ventilator Ventilator Ventilator 01/22/19 01/22/19 01/22/19 01/22/19 22:00 22:00 23:00 23:00 Temp 91.9 92.0 Pulse 100 100 Resp 36 36 B/P (MAP) 105/75 (85) 121/78 (92) Pulse Ox 96 96 O2 Delivery Ventilator Ventilator Ventilator Ventilator 01/22/19 01/23/19 01/23/19 01/23/19 23:00 00:00 00:00 00:00 Temp 92.0 91.7 91.7 Pulse 78 Resp 36 B/P (MAP) 161/111 (128) Pulse Ox 96 99 O2 Delivery Ventilator Mechanical Ventilator Ventilator Ventilator 01/23/19 01/23/19 01/23/19 01/23/19 01:00 01:00 01:00 02:00 Temp 91.6 Pulse 80 74 Resp 36 36 B/P (MAP) 127/86 (100) 127/79 (95) Pulse Ox 100 100 100 O2 Delivery Ventilator Ventilator Ventilator Ventilator 01/23/19 01/23/19 01/23/19 01/23/19 02:00 02:20 03:00 03:00 Temp 91.4 91.0 Pulse 80 74 Resp 36 36 B/P (MAP) 128/82 (97) 190/105 (133) Pulse Ox 100 100 O2 Delivery Ventilator Ventilator Ventilator Ventilator 01/23/19 01/23/19 01/23/19 01/23/19 03:30 03:30 04:00 04:00 Temp 91.0 91.6 Pulse 80 Resp 36 B/P (MAP) 122/91 (101) Pulse Ox 100 O2 Delivery Ventilator Ventilator Mechanical Ventilator Ventilator 01/23/19 01/23/19 01/23/19 01/23/19 04:00 04:12 04:30 04:30 Temp 91.6 91.6 91.6 Pulse 82 74 Resp 36 36 B/P (MAP) 143/84 (103) 145/92 (109) Pulse Ox 100 100 100 O2 Delivery Ventilator Ventilator Ventilator Ventilator 01/23/19 01/23/19 01/23/19 01/23/19 05:00 05:00 05:30 05:30 Temp 92.1 92.1 Pulse 86 0 Resp 36 36 B/P (MAP) 97/59 (72) Pulse Ox 100 O2 Delivery Ventilator Ventilator Ventilator Ventilator 01/23/19 01/23/19 01/23/19 01/23/19 06:00 06:00 06:26 06:30 Temp 92.3 92.3 93.1 92.3 Pulse 96 83 Resp 36 B/P (MAP) 102/70 (81) 82/61 Pulse Ox 100 O2 Delivery Ventilator Ventilator Ventilator 01/23/19 01/23/19 01/23/19 01/23/19 06:30 07:00 07:47 07:50 Temp 93.1 93.6 94.2 93.1 94.2 Pulse 92 92 Resp 36 38 B/P (MAP) 98/68 (78) 92/65 Pulse Ox 100 100 O2 Delivery Ventilator Ventilator Ventilator 01/23/19 01/23/19 01/23/19 01/23/19 08:07 08:30 08:42 11:59 Temp 94.4 94.6 95.0 94.4 94.6 95.0 Pulse 99 96 94 Resp 36 36 37 B/P (MAP) 92/64 135/68 103/62 O2 Delivery Ventilator 01/23/19 12:51 Pulse Ox 100 O2 Flow Rate 15.0 Intake and Output 01/22/19 01/22/19 01/23/19 15:00 23:00 07:00 Intake Total 50 ml 1057 ml 1387 ml Output Total 915 ml 345 ml 240 ml Balance -865 ml 712 ml 1147 ml YUNIEL BOWER MD Jan 23, 2019 13:31
--- NOTE | 2019-01-23 14:12 | PDOC3 ---
Discharge Summary Visit Information Date of Admission: Jan 21, 2019 Date of Discharge: Jan 23, 2019 Admitting Diagnosis Comment: 1. OUT OF HOSP CADIAC ARrest with ROSC (10 mins down time approx) 2. Patchy bilateral airspace disease and cardiomegaly. Findings could be related to pulmonary edema, multifocal infection, or ARDS on pcxr 3. COPD 4. RESP ACIDOSIS/ metabolic acidosis 5, RESP FAILURE, POSSIBLE ASPIRATION// hypercapnic 6. Cardiogenic shock 7. elevated troponin i 8. severe sepsis 9. hyponatremia 10. heat exposure prior to CARDIAC arrest 11. moderate alcohol use 12. remote tobacco abuse Final Diagnosis Problems Medical Problems: (1) Acute on chronic systolic heart failure Status: Acute (2) Cardiac arrest with ventricular fibrillation Status: Acute (3) COPD (chronic obstructive pulmonary disease) Status: Chronic (4) Hyponatremia Status: Acute (5) Pulmonary hypertension Status: Chronic (6) Respiratory failure Status: Acute (7) Severe sepsis Status: Acute Brief Hospital Course Allergies Allergies Coded Allergies Type Severity Reaction Last Updated Verified Penicillins Allergy Unknown 01/21/19 Yes amiodarone Allergy Unknown 01/21/19 Yes Vital Signs Vital Signs Date Time Temp Pulse Resp B/P (MAP) Pulse Ox O2 Delivery O2 Flow Rate FiO2 01/23/19 12:51 100 15.0 01/23/19 11:59 Ventilator 01/23/19 08:42 95.0 94 37 103/62 95.0 Lab Results Laboratory Tests Test 01/21/19 20:24 01/21/19 20:40 01/21/19 20:42 01/21/19 20:47 Glucose (Fingerstick) 112 mg/dL (70-99) O2 Saturation 90 % (92-99) Arterial Blood pH 7.00 (7.35-7.45) Arterial Blood pCO2 at Patient Temp 52 mmHg (35-46) Arterial Blood pO2 at Patient Temp 92 mmHg (65-108) Arterial Blood HCO3 13 mmol/L (21-28) Arterial Blood Base Excess -19 mmol/L (-3-3) Oxyhemoglobin 89.3 % Methemoglobin 0.6 % (0.0-1.9) Carbon Monoxide, Quantitative 0.3 % (0.0-1.9) FiO2 100 Bedside Troponin I 0.43 ng/ml (<0.08) Bedside Hemoglobin 13.3 g/dL (14-18) Bedside Hematocrit 39 % (37-52) Bedside Sodium 122 mmol/L (135-145) Bedside Potassium 4.0 mmol/L (3.5-5.0) Bedside Chloride 94 mmol/L (98-110) Bedside Total CO2 17 mmol/L (23-32) Anion Gap 16 mmol/L (6-14) Bedside Blood Urea Nitrogen 9 mg/dL (8-26) Bedside Creatinine 1.2 mg/dL (0.5-1.4) Glucose Level 126 mg/dL (70-99) Bedside Ionized Calcium (Amada) 0.93 mmol/L (1.13-1.32) Test 01/21/19 21:46 01/21/19 23:03 01/21/19 23:20 01/21/19 23:31 O2 Saturation 85 % (92-99) 96 % (92-99) Arterial Blood pH 7.09 (7.35-7.45) 7.22 (7.35-7.45) Arterial Blood pCO2 at Patient Temp 56 mmHg (35-46) 37 mmHg (35-46) Arterial Blood pO2 at Patient Temp 72 mmHg (65-108) 106 mmHg (65-108) Arterial Blood HCO3 17 mmol/L (21-28) 15 mmol/L (21-28) Arterial Blood Base Excess -14 mmol/L (-3-3) -12 mmol/L (-3-3) FiO2 100 100 Arterial Blood pH (Temp corrected) 7.26 Arterial Blood pCO2 (Temp correct) 33 mmHg Arterial Blood pO2 (Temp corrected) 91 mmHg Oxyhemoglobin 95.0 % Methemoglobin 0.3 % (0.0-1.9) Carbon Monoxide, Quantitative 0.5 % (0.0-1.9) White Blood Count 21.0 x10^3/uL (4.0-11.0) Red Blood Count 4.06 x10^6/uL (4.30-5.70) Hemoglobin 12.1 g/dL (13.0-17.5) Hematocrit 36.4 % (39.0-53.0) Mean Corpuscular Volume 90 fL (79-100) Mean Corpuscular Hemoglobin 30 pg (25-35) Mean Corpuscular Hemoglobin Concent 33 g/dL (31-37) Red Cell Distribution Width 17.5 % (11.5-14.5) Platelet Count 157 x10^3/uL (140-400) Neutrophils (%) (Auto) 88 % (31-73) Lymphocytes (%) (Auto) 4 % (24-48) Monocytes (%) (Auto) 7 % (0-9) Eosinophils (%) (Auto) 0 % (0-3) Basophils (%) (Auto) 0 % (0-3) Neutrophils # (Auto) 18.5 x10^3/uL (1.8-7.7) Lymphocytes # (Auto) 0.9 x10^3/uL (1.0-4.8) Monocytes # (Auto) 1.4 x10^3/uL (0.0-1.1) Eosinophils # (Auto) 0.1 x10^3/uL (0.0-0.7) Basophils # (Auto) 0.1 x10^3/uL (0.0-0.2) Segmented Neutrophils % 63 % (35-66) Band Neutrophils % 22 % (0-9) Lymphocytes % 7 % (24-48) Monocytes % 4 % (0-10) Metamyelocytes % 2 % (0-0) Myelocytes % 1 % (0-0) Promyelocytes % 1 % (0-0) Toxic Granulation Slight Platelet Estimate Adequate (ADEQUATE) Anisocytosis Slight Prothrombin Time 35.8 SEC (11.7-14.0) Prothromb Time International Ratio 3.6 (0.8-1.1) Sodium Level 126 mmol/L (136-145) Potassium Level 5.6 mmol/L (3.5-5.1) Chloride Level 92 mmol/L (98-107) Carbon Dioxide Level 20 mmol/L (21-32) Anion Gap 14 (6-14) Blood Urea Nitrogen 12 mg/dL (8-26) Creatinine 1.2 mg/dL (0.7-1.3) Estimated GFR (Cockcroft-Gault) 59.2 BUN/Creatinine Ratio 10 (6-20) Glucose Level 134 mg/dL (70-99) Lactic Acid Level 3.7 mmol/L (0.4-2.0) Calcium Level 7.2 mg/dL (8.5-10.1) Phosphorus Level 6.8 mg/dL (2.6-4.7) Magnesium Level 1.5 mg/dL (1.8-2.4) Total Bilirubin 0.9 mg/dL (0.2-1.0) Aspartate Amino Transf (AST/SGOT) 225 U/L (15-37) Alanine Aminotransferase (ALT/SGPT) 125 U/L (16-63) Alkaline Phosphatase 151 U/L (46-116) Creatine Kinase 733 U/L (39-308) Creatine Kinase MB (Mass) 28.2 ng/mL (0.0-3.6) Creatine Kinase MB Relative Index 3.8 % (0-4) Troponin I Quantitative 4.112 ng/mL (0.000-0.055) C-Reactive Protein, Quantitative 5.8 mg/L (0-3.3) PH-Hmu-P-Type Natriuretic Peptide 3826 pg/mL (0-124) Total Protein 6.1 g/dL (6.4-8.2) Albumin 3.1 g/dL (3.4-5.0) Albumin/Globulin Ratio 1.0 (1.0-1.7) Lipase 86 U/L (73-393) Procalcitonin 0.16 ng/mL (0.00-0.10) Thyroid Stimulating Hormone (TSH) 1.556 uIU/mL (0.358-3.74) Glucose (Fingerstick) 114 mg/dL (70-99) Test 01/22/19 03:15 01/22/19 05:38 01/22/19 05:40 01/22/19 09:15 Nasal Screen MRSA (PCR) Negative (Negative) Glucose (Fingerstick) 149 mg/dL (70-99) Sodium Level 125 mmol/L (136-145) Potassium Level 4.0 mmol/L (3.5-5.1) Chloride Level 94 mmol/L (98-107) Carbon Dioxide Level 18 mmol/L (21-32) Anion Gap 13 (6-14) Blood Urea Nitrogen 15 mg/dL (8-26) Creatinine 1.3 mg/dL (0.7-1.3) Estimated GFR (Cockcroft-Gault) 54.0 BUN/Creatinine Ratio 12 (6-20) Glucose Level 143 mg/dL (70-99) Calcium Level 7.1 mg/dL (8.5-10.1) Total Bilirubin 1.1 mg/dL (0.2-1.0) Aspartate Amino Transf (AST/SGOT) 198 U/L (15-37) Alanine Aminotransferase (ALT/SGPT) 112 U/L (16-63) Alkaline Phosphatase 125 U/L (46-116) Troponin I Quantitative 7.800 ng/mL (0.000-0.055) Total Protein 5.9 g/dL (6.4-8.2) Albumin 2.9 g/dL (3.4-5.0) Albumin/Globulin Ratio 1.0 (1.0-1.7) Triglycerides Level 56 mg/dL (0-150) Cholesterol Level 90 mg/dL (0-200) LDL Cholesterol, Calculated 6 mg/dL (0-100) VLDL Cholesterol, Calculated 11 mg/dL (0-40) Non-HDL Cholesterol Calculated 17 mg/dL (0-129) HDL Cholesterol 73 mg/dL (40-60) Cholesterol/HDL Ratio 1.2 O2 Saturation 93 % (92-99) Arterial Blood pH 7.29 (7.35-7.45) Arterial Blood pCO2 at Patient Temp 37 mmHg (35-46) Arterial Blood pO2 at Patient Temp 78 mmHg (65-108) Arterial Blood HCO3 17 mmol/L (21-28) Arterial Blood Base Excess -9 mmol/L (-3-3) FiO2 100 Test 01/22/19 18:00 01/22/19 18:04 01/22/19 20:33 01/22/19 20:40 White Blood Count 17.0 x10^3/uL (4.0-11.0) Red Blood Count 4.06 x10^6/uL (4.30-5.70) Hemoglobin 12.0 g/dL (13.0-17.5) Hematocrit 36.1 % (39.0-53.0) Mean Corpuscular Volume 89 fL (79-100) Mean Corpuscular Hemoglobin 29 pg (25-35) Mean Corpuscular Hemoglobin Concent 33 g/dL (31-37) Red Cell Distribution Width 17.2 % (11.5-14.5) Platelet Count 116 x10^3/uL (140-400) Neutrophils (%) (Auto) 90 % (31-73) Lymphocytes (%) (Auto) 4 % (24-48) Monocytes (%) (Auto) 6 % (0-9) Eosinophils (%) (Auto) 0 % (0-3) Basophils (%) (Auto) 0 % (0-3) Neutrophils # (Auto) 15.3 x10^3/uL (1.8-7.7) Lymphocytes # (Auto) 0.7 x10^3/uL (1.0-4.8) Monocytes # (Auto) 1.0 x10^3/uL (0.0-1.1) Eosinophils # (Auto) 0.0 x10^3/uL (0.0-0.7) Basophils # (Auto) 0.0 x10^3/uL (0.0-0.2) Prothrombin Time 50.2 SEC (11.7-14.0) Prothromb Time International Ratio 5.5 (0.8-1.1) Activated Partial Thromboplast Time 55 SEC (24-38) Sodium Level 128 mmol/L (136-145) Potassium Level 5.1 mmol/L (3.5-5.1) Chloride Level 96 mmol/L (98-107) Carbon Dioxide Level 23 mmol/L (21-32) Anion Gap 9 (6-14) Blood Urea Nitrogen 20 mg/dL (8-26) Creatinine 1.7 mg/dL (0.7-1.3) Estimated GFR (Cockcroft-Gault) 39.6 Glucose Level 151 mg/dL (70-99) Calcium Level 7.7 mg/dL (8.5-10.1) Magnesium Level 2.4 mg/dL (1.8-2.4) Alkaline Phosphatase 106 U/L (46-116) Glucose (Fingerstick) 137 mg/dL (70-99) 111 mg/dL (70-99) O2 Saturation 98 % (92-99) Arterial Blood pH 7.15 (7.35-7.45) Arterial Blood pH (Temp corrected) 7.20 Arterial Blood pCO2 at Patient Temp 48 mmHg (35-46) Arterial Blood pCO2 (Temp correct) 41 mmHg Arterial Blood pO2 at Patient Temp 155 mmHg (65-108) Arterial Blood pO2 (Temp corrected) 134 mmHg Arterial Blood HCO3 16 mmol/L (21-28) Arterial Blood Base Excess -12 mmol/L (-3-3) FiO2 100 Test 01/23/19 00:58 8/13/19 01:20 01/23/19 01:32 01/23/19 04:00 O2 Saturation 94 % (92-99) Arterial Blood pH 7.25 (7.35-7.45) Arterial Blood pH (Temp corrected) 7.31 Arterial Blood pCO2 at Patient Temp 36 mmHg (35-46) Arterial Blood pCO2 (Temp correct) 30 mmHg Arterial Blood pO2 at Patient Temp 85 mmHg (65-108) Arterial Blood pO2 (Temp corrected) 67 mmHg Arterial Blood HCO3 15 mmol/L (21-28) Arterial Blood Base Excess -11 mmol/L (-3-3) FiO2 100 Potassium Level 4.6 mmol/L (3.5-5.1) 4.5 mmol/L (3.5-5.1) Glucose (Fingerstick) 152 mg/dL (70-99) Prothrombin Time 67.5 SEC (11.7-14.0) Prothromb Time International Ratio 7.9 (0.8-1.1) Sodium Level 129 mmol/L (136-145) Chloride Level 95 mmol/L (98-107) Carbon Dioxide Level 22 mmol/L (21-32) Anion Gap 12 (6-14) Blood Urea Nitrogen 24 mg/dL (8-26) Creatinine 2.0 mg/dL (0.7-1.3) Estimated GFR (Cockcroft-Gault) 32.8 Glucose Level 143 mg/dL (70-99) Calcium Level 7.7 mg/dL (8.5-10.1) Phosphorus Level 5.9 mg/dL (2.6-4.7) Magnesium Level 2.3 mg/dL (1.8-2.4) Total Bilirubin 1.4 mg/dL (0.2-1.0) Direct Bilirubin 0.6 mg/dL (0.0-0.2) Aspartate Amino Transf (AST/SGOT) 116 U/L (15-37) Alanine Aminotransferase (ALT/SGPT) 92 U/L (16-63) Alkaline Phosphatase 100 U/L (46-116) Total Protein 6.0 g/dL (6.4-8.2) Albumin 2.7 g/dL (3.4-5.0) Procalcitonin 3.97 ng/mL (0.00-0.10) Test 01/23/19 07:50 01/23/19 08:20 01/23/19 09:00 O2 Saturation 97 % (92-99) Arterial Blood pH 7.35 (7.35-7.45) Arterial Blood pCO2 at Patient Temp 33 mmHg (35-46) Arterial Blood pO2 at Patient Temp 96 mmHg (65-108) Arterial Blood HCO3 18 mmol/L (21-28) Arterial Blood Base Excess -7 mmol/L (-3-3) FiO2 100 Glucose (Fingerstick) 154 mg/dL (70-99) Prothrombin Time 31.8 SEC (11.7-14.0) Prothromb Time International Ratio 3.1 (0.8-1.1) Laboratory Tests Test 01/22/19 18:00 01/22/19 18:04 01/22/19 20:33 01/22/19 20:40 White Blood Count 17.0 x10^3/uL (4.0-11.0) Red Blood Count 4.06 x10^6/uL (4.30-5.70) Hemoglobin 12.0 g/dL (13.0-17.5) Hematocrit 36.1 % (39.0-53.0) Mean Corpuscular Volume 89 fL (79-100) Mean Corpuscular Hemoglobin 29 pg (25-35) Mean Corpuscular Hemoglobin Concent 33 g/dL (31-37) Red Cell Distribution Width 17.2 % (11.5-14.5) Platelet Count 116 x10^3/uL (140-400) Neutrophils (%) (Auto) 90 % (31-73) Lymphocytes (%) (Auto) 4 % (24-48) Monocytes (%) (Auto) 6 % (0-9) Eosinophils (%) (Auto) 0 % (0-3) Basophils (%) (Auto) 0 % (0-3) Neutrophils # (Auto) 15.3 x10^3/uL (1.8-7.7) Lymphocytes # (Auto) 0.7 x10^3/uL (1.0-4.8) Monocytes # (Auto) 1.0 x10^3/uL (0.0-1.1) Eosinophils # (Auto) 0.0 x10^3/uL (0.0-0.7) Basophils # (Auto) 0.0 x10^3/uL (0.0-0.2) Prothrombin Time 50.2 SEC (11.7-14.0) Prothromb Time International Ratio 5.5 (0.8-1.1) Activated Partial Thromboplast Time 55 SEC (24-38) Sodium Level 128 mmol/L (136-145) Potassium Level 5.1 mmol/L (3.5-5.1) Chloride Level 96 mmol/L (98-107) Carbon Dioxide Level 23 mmol/L (21-32) Anion Gap 9 (6-14) Blood Urea Nitrogen 20 mg/dL (8-26) Creatinine 1.7 mg/dL (0.7-1.3) Estimated GFR (Cockcroft-Gault) 39.6 Glucose Level 151 mg/dL (70-99) Calcium Level 7.7 mg/dL (8.5-10.1) Magnesium Level 2.4 mg/dL (1.8-2.4) Alkaline Phosphatase 106 U/L (46-116) Glucose (Fingerstick) 137 mg/dL (70-99) 111 mg/dL (70-99) O2 Saturation 98 % (92-99) Arterial Blood pH 7.15 (7.35-7.45) Arterial Blood pH (Temp corrected) 7.20 Arterial Blood pCO2 at Patient Temp 48 mmHg (35-46) Arterial Blood pCO2 (Temp correct) 41 mmHg Arterial Blood pO2 at Patient Temp 155 mmHg (65-108) Arterial Blood pO2 (Temp corrected) 134 mmHg Arterial Blood HCO3 16 mmol/L (21-28) Arterial Blood Base Excess -12 mmol/L (-3-3) FiO2 100 Test 01/23/19 00:58 01/23/19 01:20 01/23/19 01:32 01/23/19 04:00 O2 Saturation 94 % (92-99) Arterial Blood pH 7.25 (7.35-7.45) Arterial Blood pH (Temp corrected) 7.31 Arterial Blood pCO2 at Patient Temp 36 mmHg (35-46) Arterial Blood pCO2 (Temp correct) 30 mmHg Arterial Blood pO2 at Patient Temp 85 mmHg (65-108) Arterial Blood pO2 (Temp corrected) 67 mmHg Arterial Blood HCO3 15 mmol/L (21-28) Arterial Blood Base Excess -11 mmol/L (-3-3) FiO2 100 Potassium Level 4.6 mmol/L (3.5-5.1) 4.5 mmol/L (3.5-5.1) Glucose (Fingerstick) 152 mg/dL (70-99) Prothrombin Time 67.5 SEC (11.7-14.0) Prothromb Time International Ratio 7.9 (0.8-1.1) Sodium Level 129 mmol/L (136-145) Chloride Level 95 mmol/L (98-107) Carbon Dioxide Level 22 mmol/L (21-32) Anion Gap 12 (6-14) Blood Urea Nitrogen 24 mg/dL (8-26) Creatinine 2.0 mg/dL (0.7-1.3) Estimated GFR (Cockcroft-Gault) 32.8 Glucose Level 143 mg/dL (70-99) Calcium Level 7.7 mg/dL (8.5-10.1) Phosphorus Level 5.9 mg/dL (2.6-4.7) Magnesium Level 2.3 mg/dL (1.8-2.4) Total Bilirubin 1.4 mg/dL (0.2-1.0) Direct Bilirubin 0.6 mg/dL (0.0-0.2) Aspartate Amino Transf (AST/SGOT) 116 U/L (15-37) Alanine Aminotransferase (ALT/SGPT) 92 U/L (16-63) Alkaline Phosphatase 100 U/L (46-116) Total Protein 6.0 g/dL (6.4-8.2) Albumin 2.7 g/dL (3.4-5.0) Procalcitonin 3.97 ng/mL (0.00-0.10) Test 01/23/19 07:50 01/23/19 08:20 01/23/19 09:00 O2 Saturation 97 % (92-99) Arterial Blood pH 7.35 (7.35-7.45) Arterial Blood pCO2 at Patient Temp 33 mmHg (35-46) Arterial Blood pO2 at Patient Temp 96 mmHg (65-108) Arterial Blood HCO3 18 mmol/L (21-28) Arterial Blood Base Excess -7 mmol/L (-3-3) FiO2 100 Glucose (Fingerstick) 154 mg/dL (70-99) Prothrombin Time 31.8 SEC (11.7-14.0) Prothromb Time International Ratio 3.1 (0.8-1.1) Brief Hospital Course Mr. Donovan is a 73 old [sex] who presented with [ ]out of hospital cardiac arrest, underwent hypothermia protocol, Then on the day of expiration,had multiple codes, 4 at least that I could count, pls see my earlier progress/CC note - after the 4th code blue, pt , IABP, LHC with 1 stent done on day of expiration, but pt still coded despite IABP, stents, pressors etc... Discharge Information Disposition/Orders: Scheduled Albuterol Sulfate (Albuterol Sulfate Conc Neb Soln) 2.5 Mg/0.5 Ml Vial.neb, 1 VIAL NEB Q6HRS for , #120 Ref 5 (Reported) Entered as Reported by: MOIRA BATES on 01/22/19258 Last Taken: Unknown Dose on Unknown Date & Time Last Action: New Order on 01/22/19258 by MOIRA BATES Aspirin (Aspirin) 81 Mg Tab.chew, 1 TAB PO DAILY for , #30 Ref 3 (Reported) Entered as Reported by: MOIRA BATES on 01/22/19258 Last Taken: Unknown Dose on Unknown Date & Time Last Action: New Order on 01/22/19258 by MOIRA BATES Atorvastatin Calcium (Lipitor) 80 Mg Tablet, 1 TAB PO DAILY for , #30 Ref 5 (Reported) Entered as Reported by: MOIRA BATES on 01/22/19258 Last Taken: Unknown Dose on Unknown Date & Time Last Action: New Order on 01/22/19258 by MOIRA BATES Cetirizine Hcl (Zyrtec) 10 Mg Tablet, 1 TAB PO DAILY for , #30 Ref 2 (Reported) Entered as Reported by: MOIRA BATES on 01/22/19258 Last Taken: Unknown Dose on Unknown Date & Time Last Action: New Order on 01/22/19258 by MOIRA BATES Clopidogrel Bisulfate (Clopidogrel) 75 Mg Tablet, 1 TAB PO DAILY for , #90 Ref 1 (Reported) Entered as Reported by: MOIRA BATES on 01/22/19258 Last Taken: Unknown Dose on Unknown Date & Time Last Action: New Order on 01/22/19258 by MOIRA BATES Fluticasone/Salmeterol (Advair 100-50 Diskus) 1 Each Disk.w.dev, 1 PUFF IH BID for , #1 Ref 5 (Reported) Entered as Reported by: MOIRA BATES on 01/22/19258 Last Taken: UNKNOWN on Unknown Date & Time Last Action: New Order on 01/22/19258 by MOIRA BATES Magnesium Oxide (Mag-Oxide) 400 Mg Tablet, 1 TAB PO DAILY for , #60 Ref 5 (Reported) Entered as Reported by: MOIRA BATES on 01/22/19258 Last Taken: UNKNOWN on Unknown Date & Time Last Action: New Order on 01/22/19258 by MOIRA BATES Metoprolol Tartrate (Metoprolol Tartrate) 100 Mg Tablet, 1.5 TAB PO DAILY for , #60 Ref 5 (Reported) Entered as Reported by: MOIRA BATES on 01/22/19258 Last Taken: Unknown Dose on Unknown Date & Time Last Action: New Order on 01/22/19258 by MOIRA BATES Multivitamin (Multivitamins) 1 Each Tablet, 1 TAB PO DAILY for , #90 Ref 3 (Reported) Entered as Reported by: MOIRA BATES on 01/22/19258 Last Taken: Unknown Dose on Unknown Date & Time Last Action: New Order on 01/22/19258 by MOIRA BATES [place]-3 Fatty Acids/Fish Oil (Fish Oil 1,000 Mg Capsule) 1 Each Capsule, 1 EACH PO DAILY for , (Reported) Entered as Reported by: MOIRA BATES on 01/22/19258 Last Taken: UNKNOWN on Unknown Date & Time Last Action: New Order on 01/22/19258 by MOIRA BATES Pantoprazole Sodium (Protonix) 20 Mg Tablet.dr, 2 TAB PO DAILY for , #30 (Reported) Entered as Reported by: MOIRA BATES on 01/22/19258 Last Taken: Unknown Dose on Unknown Date & Time Last Action: New Order on 01/22/19258 by MOIRA BATES Spironolactone (Spironolactone) 25 Mg Tablet, 1 TAB PO DAILY for , #90 Ref 1 (Reported) Entered as Reported by: MOIRA BATES on 01/22/19258 Last Taken: Unknown Dose on Unknown Date & Time Last Action: New Order on 01/22/19258 by MIORA BATES Warfarin Sodium (Warfarin Sodium) 5 Mg Tablet, 5 MG PO DAILY for , #30 (Reported) Entered as Reported by: MOIRA BATES on 01/22/19258 Last Taken: UNKNOWN on Unknown Date & Time Last Action: HELD on 01/22/191102 by CARMEL VARGAS MD Warfarin Sodium (Warfarin Sodium) 2.5 Mg Tablet, 2.5 MG PO DAILY for , (Reported) Entered as Reported by: MOIRA BATES on 01/22/19258 Last Taken: UNKNOWN on Unknown Date & Time Last Action: HELD on 01/22/191102 by CARMEL VARGAS MD Scheduled PRN Nitroglycerin (NITROGLYCERIN SubLingual) 0.4 Mg Tab.subl, 0.4 MG SL PRN Q5MIN PRN for CHEST PAIN, (Reported) Entered as Reported by: MOIRA BATES on 01/22/19258 Last Taken: Unknown Dose on Unknown Date & Time Last Action: New Order on 01/22/19258 by YUNIEL DE JESUS MD Jan 23, 2019 14:12
--- NOTE | 2019-01-23 15:50 | CARD ---
MR#: [id number] Date of Study: 01/23/2019 Ordering Physician: TEQUILA STERN, Referring Physician: CARMEL VARGAS Tech: Maryellen Jay APPROVED REPORT Technologist: Maryellen Jay Nurse: Mayra Cary RN Procedure(s) performed: fl time: 14.3 contrast: 194 ml dose: 163 gy/cm2 heart failure class 4 LHC, Coronary angiography, Bypass angiography PCI of the LM HISTORY The patient is a 73 year-old male with a history of : coronary artery disease, hypertension, dyslipid emia. INDICATION The indication(s) include : non-STEMI , dyspnea. CSHA Clinical Frailty Scale CS Clinical Frailty Scale: Severely Frail Heart Failure Heart Failure: Yes If Yes, Newly Diagnosed: No If Yes, HF Type: Systolic If Yes, NYHA Class: Class III PROCEDURE NARRATIVE After extensive discussion of the risks and benefits of cardiac catheterization in the setting of car flora genic shock and refractory VT the patient was brought to the catheterization laboratory. Informed consent was obtained from the patient's . The bilateral groins were prepped and draped in usual sterile fashion. Under ultrasound guidance a 6 Maldivian arterial sheath was placed in the right common femoral artery via the modified Seldinger techn ique and a micropuncture sheath. Diagnostic angiography was then performed with a 6 Maldivian JL4 and JR4 catheters, bypass angiography w as then performed with a 6 Maldivian YUMIKO catheter and a AR catheter. Findings: Left main has a previous stent that has a 60% in-stent restenosis. The stent extends into a large obt use marginal branch which is widely patent. The LAD is occluded proximally. The mid to distal LAD is seen to fill via a YUMIKO graft. The first diagonal is occluded proximally and is seen to fill via a jump graft from the YUMIKO The left circumflex is diffusely diseased after the takeoff of the large obtuse marginal/ramus The right coronary artery is diffusely diseased and occluded in the midsegment Bypass angiography: HUTCHISON to the LAD/diagonal is widely patent without any anastomotic stenosis Radial graft to the RCA is widely patent without any anastomotic stenosis Interventional technique: Heparin was used for anticoagulation. The 6 Maldivian sheath in the left common femoral artery was upsiz ed to a 8 Maldivian sheath. Through this a 7.5 Maldivian injured balloon pump was placed with the tip at th e level of the descending aorta after the subclavian takeoff. Augmentation was initiated at 1:1. Due to the patient's significant refractory VT, hypotension and cardiac genic shock a salvage PCI was per formed in an effort to help decrease future VT. Through a 6 Maldivian JL 3.5 guide catheter a 0.014 inch pro-water wire was advanced to the distal obtus e marginal. Balloon angioplasty of the previous stent was performed with a 4.0 x 15 mm balloon and th en lesion was then stented with a 4.0 x 15 mm Alpine drug-eluting stent and dilated at 18 annemarie. Post-P CI angiography revealed excellent stent expansion with NENA-3 flow in the vessel and no evidence of g uide or wire related complications. The bilateral sheaths were sutured to the skin and the patient was transported to the ICU in critical but stable condition. NENA Flow NENA Flow (Pre-Intervention): NENA-3 NENA Flow (Post-Intervention): NENA-3 Conclusion 1. Cardio genic shock 2. Three-vessel coronary artery disease with left main stent restenosis 3. Successful insertion of a 7.5 Maldivian 40 mL intra-aortic balloon pump via the left common femoral a rtery 4. Successful PCI of the left main stent restenosis with implantation of a 4.0 x 15 mm Alpine drug-el uting stent, dilated up to 18 annemarie Recommendations 1. This was a salvage PCI in the setting of critical illness. 2. Patient family updated about the procedure and poor overall prognosis. Signed by : Tequila Stern, Electronically Approved : 01/23/2019 15:49:39
--- NOTE | 2019-01-23 16:06 | NUR ---
Communication w [facility],eye gtt instilled-placed in reverse Trendelenburg
--- NOTE | 2019-01-24 03:07 | PDOC5 ---
CODE REPORT CODE REPORT CODE BLUE was activated at 2020 on 01/22/19 patient was intubated in ICU. Patient had several doses of epinephrine and bicarbonate and shock without spontaneous cardiac activity. Please see CODE BLUE report for details of medication. At [address] Grover presented to ICU and care of patient transferred to him. VIRAJ REYES MD Jan 24, 2019 03:07
--- NOTE | 2019-01-24 03:09 | PDOC5 ---
CODE REPORT CODE REPORT Intubated patient in ICU had cardiac arrest and code blue was activated at 0 527. Patient had epinephrine and bicarbonate and shock and one amp of calcium and at 0534 had spontaneous cardiac activity. VIRAJ REYES MD Jan 24, 2019 03:09
== END 2019-01-23 14:10 | disposition expired | DRG 853 ==
LOC: ER 20:00 → 1 WEST ICU 20:57
PROVIDERS: ADMIT Family Medicine; ATTEND Family Medicine
PROC: 5A1945Z Respiratory Ventilation, 24-96 Consecutive Hours (ICD-10-PCS; principal; 2019-01-21)
PROC: 0BH17EZ Insertion of Endotracheal Airway into Trachea, Via Natural or Artificial Opening (ICD-10-PCS; 2019-01-22)
PROC: 027034Z Dilation of Coronary Artery, One Artery with Drug-eluting Intraluminal Device, Percutaneous Approach (ICD-10-PCS; 2019-01-23)
PROC: 5A02210 Assistance with Cardiac Output using Balloon Pump, Continuous (ICD-10-PCS; 2019-01-23)
PROC: 02HV33Z Insertion of Infusion Device into Superior Vena Cava, Percutaneous Approach (ICD-10-PCS; 2019-01-23)
PROC: 4A023N7 Measurement of Cardiac Sampling and Pressure, Left Heart, Percutaneous Approach (ICD-10-PCS; 2019-01-23)
PROC: B2111ZZ Fluoroscopy of Multiple Coronary Arteries using Low Osmolar Contrast (ICD-10-PCS; 2019-01-23)
PROC: B2181ZZ Fluoroscopy of Left Internal Mammary Bypass Graft using Low Osmolar Contrast (ICD-10-PCS; 2019-01-23)
PROC: B2121ZZ Fluoroscopy of Single Coronary Artery Bypass Graft using Low Osmolar Contrast (ICD-10-PCS; 2019-01-23)
PROC: 30233K1 Transfusion of Nonautologous Frozen Plasma into Peripheral Vein, Percutaneous Approach (ICD-10-PCS; 2019-01-23)
DX: A41.9 Sepsis, unspecified organism (principal); I50.23 Acute on chronic systolic (congestive) heart failure; J80 Acute respiratory distress syndrome; K72.00 Acute and subacute hepatic failure without coma; T82.855A Stenosis of coronary artery stent, initial encounter; I47.2 Ventricular tachycardia; E87.1 Hypo-osmolality and hyponatremia; N17.9 Acute kidney failure, unspecified; R65.20 Severe sepsis without septic shock; I49.01 Ventricular fibrillation; R57.0 Cardiogenic shock; E78.00 Pure hypercholesterolemia, unspecified; F17.201 Nicotine dependence, unspecified, in remission; E78.5 Hyperlipidemia, unspecified; M19.90 Unspecified osteoarthritis, unspecified site; E83.42 Hypomagnesemia; I27.29 Other secondary pulmonary hypertension; I25.10 Atherosclerotic heart disease of native coronary artery without angina pectoris; I48.2 Chronic atrial fibrillation; I11.0 Hypertensive heart disease with heart failure; I25.5 Ischemic cardiomyopathy; J44.9 Chronic obstructive pulmonary disease, unspecified; Y83.8 Other surgical procedures as the cause of abnormal reaction of the patient, or of later complication, without mention of misadventure at the time of the procedure; Z66 Do not resuscitate; Z79.01 Long term (current) use of anticoagulants; Z90.49 Acquired absence of other specified parts of digestive tract; Z95.1 Presence of aortocoronary bypass graft; Z95.0 Presence of cardiac pacemaker; Z82.3 Family history of stroke; Z88.0 Allergy status to penicillin; Z82.49 Family history of ischemic heart disease and other diseases of the circulatory system; Z79.02 Long term (current) use of antithrombotics/antiplatelets; Z79.82 Long term (current) use of aspirin; Z79.51 Long term (current) use of inhaled steroids; Z79.899 Other long term (current) drug therapy; Z95.5 Presence of coronary angioplasty implant and graft; Y92.89 Other specified places as the place of occurrence of the external cause
CPT/HCPCS: 33967; 36415; 36600; 70450; 71045; 80047; 80048; 80053; 80061; 80076; 82553; 82805; 82962; 83605; 83690; 83735; 83880; 84075; 84100; 84132; 84145; 84443; 84484; 85007; 85025; 85610; 85730; 86140; 86850; 86900; 86901; 86927; 87040; 87070; 87205; 87641; 92928; 93005; 93306; 93455; 94002; 94003; C1725; C1769; C1874; C1887; C1892; C1894; C9113; J0171; J1265; J1644; J1956; J2185; J2250; J2704; J3010; J3370; J3475; J3490; J7030; J7040; P9017; Q9967; 99285-25; G0378